=== PATIENT | male | born 1960 | race Caucasian/White ===

== ENCOUNTER 2020-04-17 18:41 | Emergency (ER) | payer OTHER, MEDICARE, SELFPAY ==
[2020-04-17 18:42] VITALS: BP 123/73; PULSE 71; RESP 16; TEMP 36.4; O2SAT 96; BMI 35.3
[2020-04-17 19:47] LABS: Absolute Lymphocyte Count 2.33 X10^3/uL (0.83-4.51); Absolute Neutrophil Count 3.3 X10^3/uL (2.0-7.7); Basophil# 0.04 X10^3/uL; Basophil% 0.6 % (0-1); Hemoglobin 13.4 g/dL (13.0-16.5); Lymphocyte # 2.33 X10^3/ul (4.0); Lymphocyte % 35.5 % (19-41); Mean Corp Hgb Conc 34.4 g/dL (32-36); Mean Corpuscular Hgb 30.9 pg (27.0-32.0); Mean Corpuscular Volume 89.9 fL (80-94); Monocyte# 0.67 X10^3/uL; Monocyte% 10.2 % (0-10); NRBC Flagged by Analyzer 0 % (0-5); Neutrophil # 3.28 X10^3/uL (2.7-7.7); Neutrophil % 50.1 % (47-70); Platelet Count 217 K/mm3 (150-450); RBC Distribution Width CV 12.6 % (11.6-14.6); RBC Distribution Width SD 40.5 fl (35.1-43.9); Red Blood Count 4.34 M/mm3 (4.6-6.2); White Blood Count 6.6 K/mm3 (4.4-11.0)
--- NOTE | 2020-04-17 19:49 | ED.DCSUM_ITS ---
- ER Visit Summary Date of Service: 04/17/20 Chief Complaint: [Bleeding from right knee wound] History of Present Illness: The patient is a 60 M [presents the emergency department with a wound on his right knee that he sustained after he fell 2 days ago. Patient states that he at times will have his right knee can buckle and give out and he will fall. Patient sustained some abrasions which they dressed at home. This evening his took the dressing off the right knee and it started to bleed and would not stop bleeding. Patient is on Coumadin. Patient denies wrecking his head. He denies any neck or head pain. He denies any other injuries. Patient has history of prior DVTs and diabetes. He is unsure when the last time he had an INR checked.] Physical Examination: [HELITA-PERRLA, VAUGHNMI. Cranial nerves II through XII grossly intact. TMs clear. Mucous membranes moist. No adenopathy. No external evidence of trauma to his head. No C-spine tenderness on palpation. Cardiovascular-regular rate and rhythm without murmur or ectopy Lungs-clear to auscultation, chest wall stable without crepitus or subcu emphysema Abdomen-normoactive bowel sounds, soft, nontender, no rebound or rigidity, no peritoneal signs. Extremities-intact ?4, normal range of motion, normal pulses. Right knee- patient has superficial skin avulsion over the anterior aspect of the right knee and currently there is no active bleeding. Bony tenderness on exam. Patient neurovascular intact distally. Patient also has a superficial abrasion to the left anterior tibia proximally.] Test Results: [CBC with differential obtained showed a white count of 6.6, hemoglobin 13, hematocrit 39, platelet 217.] Patient's INR was 1.0. Chemistries unremarkable. Glucose was 215. Emergency Department Course and Treatment: [Patient had a clean dressing applied. Patient was given 1 dose of Keflex.] Treatment Plan: [Treat patient with Keflex for concern of early cellulitis especially in light of the patient being diabetic. [facility] 3 to 5 days. Patient advised to return if increasing pain, redness, swelling, or condition should worsen anyway. Benita brandt's Cou[facility]in [facility] and he is advised to follow-up with them as he states that he has been taking the medication compliantly but his INR is only 1.0.] Disposition: [Discharged home in stable condition] Impression: Right knee skin avulsion with early cellulitis [] This note was generated with [employer] dictation software. It may contain incorrect words, spelling, and punctuation that were not noted in review of the chart prior to signing ED Disposition - Plan for ED Patient: [facility] [[facility] Provider] -
[2020-04-17 19:52] LABS: Prothrombin Time (Protime)PT. 12.4 SECONDS (11.7-14.9)
[2020-04-17 19:56] LABS: Anion Gap 7 (5-15); BUN 16 mg/dL (7-18); BUN/Creat Ratio 19.3 RATIO (10-20); Calcium,Total 8.6 mg/dL (8.5-10.1); Chloride 104 mmol/L (98-107); Creatinine, Serum 0.83 mg/dL (0.70-1.30); EST Glomerular Filtration Rate 102 mL/min (>60); Est Glom Filt Rate - Afr Amer 123 mL/min (>60); Estimated Creatinine Clearance 78.08 ml/min; Glucose 215 mg/dL (74-106); Potassium 4.1 mmol/L (3.5-5.1); Sodium Level 139 mmol/L (136-145)
--- NOTE | 2020-04-17 20:15 | ED.DEP ---
ED Disposition - Plan for ED Patient: Instructions: ED AVULSION LACERATION, ED Cellulitis Prescriptions: Cephalexin [Keflex] 500 mg PO Q6 #40 cap Prescription Printed [facility] [[facility] Provider] - 3-5 Days
[2020-04-17 20:27] VITALS: BP 149/79; PULSE 67; RESP 15
[2020-04-17] MEDS: Cephalexin 250 MG Capsule 500 MG PO (20:27)
== END 2020-04-17 20:41 | disposition home or self-care (01) ==
LOC: ED 20:38
PROVIDERS: Emergency Provider Emergency Medicine
DX: S81.001A Unspecified open wound, right knee, initial encounter (principal); L03.115 Cellulitis of right lower limb; X58.XXXA Exposure to other specified factors, initial encounter; Z79.01 Long term (current) use of anticoagulants
CPT/HCPCS: 36415; 80048; 85025; 85610; 99283; A4216

== ENCOUNTER 2020-05-14 05:10 | Emergency (ER) | payer OTHER, MEDICARE, SELFPAY ==
[2020-05-14 05:11] VITALS: BP 136/77; PULSE 84; RESP 18; TEMP 36.8; O2SAT 95; BMI 37.0
--- NOTE | 2020-05-14 05:31 | CT_ITS ---
STUDY: CT BRAIN WITHOUT CONTRAST REASON FOR EXAM: Male, 60 years old. SEIZURE, PT FELL OUT OF BED RADIATION DOSAGE (If Supplied By Facility): CTDIvol = ( 44.99 ) mGy, DLP = ( 812.98 ) mGycm TECHNIQUE: Transaxial CT imaging of the brain was performed without administration of intravenous contrast material. Individualized dose optimization techniques were used for this CT. COMPARISON: January 06, 2014 FINDINGS: There is extensive encephalomalacia in the RIGHT frontal lobe suggesting old injury. There is focal encephalomalacia in the RIGHT parietal lobe. There is NO acute infarct or hemorrhage. There is NO mass effect or midline shift. There is moderate central and cortical atrophy. The bony calvarium is intact. The paranasal sinuses are clear. CT/Brain/Head without Contrast IMPRESSION: There are chronic involutional and ischemic changes. There is NO acute abnormality. Electronically Signed: Neftali Owen MD at 6:39 EDT , Service support ,
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
[2020-05-14 06:25] LABS: Absolute Lymphocyte Count 1.48 X10^3/uL (0.83-4.51); Absolute Neutrophil Count 2.5 X10^3/uL (2.0-7.7); Basophil# 0.04 X10^3/uL; Basophil% 0.8 % (0-1); Eosinophil# 0.14 X10^3/uL; Hematocrit 40.4 % (40-54); Hemoglobin 13.4 g/dL (13.0-16.5); Lymphocyte # 1.48 X10^3/ul (4.0); Lymphocyte % 31.3 % (19-41); Mean Corp Hgb Conc 33.2 g/dL (32-36); Mean Corpuscular Hgb 30.2 pg (27.0-32.0); Mean Platelet Vol. 10.9 fl (6.2-12.0); Monocyte# 0.57 X10^3/uL; Monocyte% 12.1 % (0-10); NRBC Flagged by Analyzer 0 % (0-5); Neutrophil # 2.46 X10^3/uL (2.7-7.7); Platelet Count 200 K/mm3 (150-450); RBC Distribution Width CV 12.4 % (11.6-14.6); RBC Distribution Width SD 40.8 fl (35.1-43.9); Red Blood Count 4.44 M/mm3 (4.6-6.2); White Blood Count 4.7 K/mm3 (4.4-11.0)
[2020-05-14 06:37] VITALS: PULSE 82
[2020-05-14 06:39] LABS: Anion Gap 6 (5-15); BUN 11 mg/dL (7-18); BUN/Creat Ratio 11.7 RATIO (10-20); Calcium,Total 8.5 mg/dL (8.5-10.1); Chloride 103 mmol/L (98-107); Creatinine, Serum 0.94 mg/dL (0.70-1.30); EST Glomerular Filtration Rate 87 mL/min (>60); Est Glom Filt Rate - Afr Amer 106 mL/min (>60); Estimated Creatinine Clearance 68.94 ml/min; Glucose 245 mg/dL (74-106); Potassium 4.3 mmol/L (3.5-5.1); Sodium Level 139 mmol/L (136-145)
[2020-05-14 06:57] LABS: Bacteria 0 SEEN /hpf (None Seen); Mucous, Urine 0 SEEN /hpf (<or=2+); Red Blood Cells-Urine 0 SEEN /hpf (0-5); Squamous Epithelial Cells - UA 0 SEEN /hpf (0-5); White Blood Cells 0 SEEN /hpf (0-5)
[2020-05-14 07:01] LABS: Valproic Acid (Depakene) Level 24 ug/mL (50-100)
[2020-05-14 07:09] LABS: Color, Urine Yellow (Yellow); Glucose, Dipstick 1000 mg/dl (Normal); Ketone-Dipstick 5 mg/dl (Negative); Leukocyte Esterase-Dipstick Negative /ul (Negative); Nitrite-Dipstick Negative (Negative); Occult Blood-Urine Negative /ul (Negative); Protein-Dipstick 30 mg/dl (Negative); Specific Gravity, Urine 1.015 (1.002-1.030); Urine Bilirubin Dipstick Negative (Negative); Urine Clarity Clear (Clear); Urine Urobilinogen Normal (Normal)
[2020-05-14 07:36] VITALS: BP 127/76; PULSE 79; RESP 18; O2SAT 97
== END 2020-05-14 09:15 | disposition home or self-care (01) ==
PROVIDERS: Emergency Provider Emergency Medicine
DX: G40.909 Epilepsy, unspecified, not intractable, without status epilepticus (principal); I25.10 Atherosclerotic heart disease of native coronary artery without angina pectoris; E11.9 Type 2 diabetes mellitus without complications; E78.5 Hyperlipidemia, unspecified; Z87.820 Personal history of traumatic brain injury; Z79.84 Long term (current) use of oral hypoglycemic drugs; Z79.82 Long term (current) use of aspirin; Z86.718 Personal history of other venous thrombosis and embolism; Z79.02 Long term (current) use of antithrombotics/antiplatelets
CPT/HCPCS: 70450; 80048; 80164; 81001; 85025; 99285; J7030; J7050; A4216

== ENCOUNTER 2020-12-20 16:41 | Emergency (ER) | payer OTHER, MEDICARE, SELFPAY ==
[2020-12-20 16:41] VITALS: BP 128/73; PULSE 58; RESP 16; TEMP 36.1; O2SAT 99; BMI 34.5
--- NOTE | 2020-12-20 16:56 | CT_ITS ---
STUDY: CT ABDOMEN AND PELVIS WITH CONTRAST REASON FOR EXAM: Male, 60 years old. Fall. Right flank bruising. RADIATION DOSAGE (If Supplied By Facility): CTDIvol = ( 17.85 ) mGy, DLP = ( 1145.73 ) mGycm TECHNIQUE: Transaxial images were obtained from the dome of the diaphragm to the symphysis pubis without oral contrast. 100 ml of ISOVUE-300 contrast was administered. Sagittal and coronal images were reconstructed. Individualized dose optimization techniques were used for this CT. COMPARISON: None. FINDINGS: The visualized lung bases are clear. The visualized portions of the heart and pericardium are within normal limits. There are subcentimeter gallstones noted. The liver is within normal limits. There are no suspicious hepatic lesions. The spleen is normal in size. The pancreas is within normal limits. The adrenal glands are within normal limits. There are no renal or ureteral stones. There is no hydronephrosis. There are no focal renal lesions. Normal visualized stomach. There is no bowel obstruction or inflammation. There is a large amount of stool in the colon, consistent with constipation. The appendix is visualized and appears normal. The aorta is normal in caliber. There is an IVC filter in place. There is no abdominal or pelvic free air, free fluid, fluid collection or lymphadenopathy. The visualized osseous structures are intact. There is no acute fracture or dislocation. There are mild degenerative changes noted in the spine. There is a 7.0 x 6.5 x 3.6 cm hematoma in the posterior subcutaneous fat adjacent to the right paraspinal muscles. There is adjacent fat stranding noted. CT/Abdomen/Pelvis W IV Cont ONLY IMPRESSION: 7.0 x 6.5 x 3.6 cm hematoma in the posterior subcutaneous fat adjacent to the right paraspinal muscles. Adjacent fat stranding. No additional acute traumatic findings in the abdomen or pelvis. Nonacute findings, as above. Electronically Signed: Esau Ritchie MD at 18:25 EST Tel , Service support ,
--- NOTE | 2020-12-20 16:58 | ED.DCSUM_ITS ---
- ER Visit Summary Date of Service: 12/20/20 Chief Complaint: [Fall with back injury] History of Present Illness: The patient is a 60 M [the emergency department with complaint of a fall that occurred about 2 or 3 days ago. Patient states that he had urinated and on the way back from the toilet he lost his balance and fell hit his back against the wall of the tub. Patient initially did not think much of it but he is noticed a lot of bruising and discoloration to his skin and back. Patient is on anticoagulation for history of DVT and takes Arixtra. Patient denies any hematuria. Denies feeling lightheaded or dizzy. Patient was seen in urgent care and referred to the ER for evaluation. Patient does have history of coronary artery disease, DVT, seizure history, TIA history, and schizophrenia.] Physical Examination: [HEENT-PERRLA, EOMI. Cranial nerves II through XII ella sly intact. TMs clear. Mucous membranes moist. No adenopathy. Cardiovascular-regular rate and rhythm without murmur or ectopy Lungs-clear to auscultation, chest wall stable without crepitus or subcu emphysema Abdomen-normoactive bowel sounds, soft, nontender, no rebound or rigidity, no peritoneal signs. Back exam-patient has diffuse ecchymosis and bruising to the right flank with hematoma noted tracking along to the right lower quadrant of the abdomen and onto his right lateral hip and thigh. He does have some diffuse tenderness over the lumbar spine. No bony step-offs or depressions noted. Negative straight leg raises. Deep tendon reflexes are plus 2 out of 4 bilaterally at the patella and Achilles. Patient has normal 5 extension bilaterally. Extremities-intact ?4, normal range of motion, normal pulses, atraumatic] Test Results: [Orthostatic vital signs were normal. CBC with differential showing a 7.3, hemoglobin 11.9, hematocrit 35, platelets 321. Chemistries unremarkable. Urinalysis normal. CT of the abdomen pelvis with IV contrast showed a 7 x 6.5 x 3.6 cm hematoma over the subcutaneous regions of the right lumbar paraspinal musculature.] Emergency Department Course and Treatment: [ IV line established on arrival.] Treatment Plan: [Patient will be given a prescription for few Healy for pain.] Disposition: [Discharged home in stable condition] Impression: [Contusion to back Hematoma right flank] This note was generated with [employer] dictation software. It may contain incorrect words, spelling, and punctuation that were not noted in review of the chart prior to signing ED Disposition - Plan for ED Patient: [facility]] -
[2020-12-20] MEDS: 0.9% Normal Saline 1,000 ML 150 ML IV (17:00)
[2020-12-20 17:39] LABS: Absolute Lymphocyte Count 2.04 X10^3/uL (0.83-4.51); Absolute Neutrophil Count 4.4 X10^3/uL (2.0-7.7); Basophil# 0.05 X10^3/uL; Basophil% 0.7 % (0-1); Eosinophil# 0.15 X10^3/uL; Hematocrit 35.4 % (40-54); Hemoglobin 11.9 g/dL (13.0-16.5); Lymphocyte # 2.04 X10^3/ul (4.0); Lymphocyte % 27.8 % (19-41); Mean Corp Hgb Conc 33.6 g/dL (32-36); Mean Corpuscular Hgb 30.7 pg (27.0-32.0); Mean Corpuscular Volume 91.5 fL (80-94); Mean Platelet Vol. 10.3 fl (6.2-12.0); Monocyte# 0.61 X10^3/uL; Monocyte% 8.3 % (0-10); NRBC Flagged by Analyzer 0 % (0-5); Neutrophil # 4.39 X10^3/uL (2.7-7.7); Platelet Count 321 K/mm3 (150-450); RBC Distribution Width SD 43.8 fl (35.1-43.9); Red Blood Count 3.87 M/mm3 (4.6-6.2); White Blood Count 7.3 K/mm3 (4.4-11.0)
[2020-12-20 17:42] VITALS: BP 123/69; BP 136/93; BP 140/84; PULSE 56; PULSE 62; PULSE 75
[2020-12-20 17:44] LABS: Anion Gap 2 (5-15); BUN 9 mg/dL (7-18); BUN/Creat Ratio 11.6 RATIO (10-20); Calcium,Total 8.7 mg/dL (8.5-10.1); Chloride 107 mmol/L (98-107); Creatinine, Serum 0.77 mg/dL (0.70-1.30); EST Glomerular Filtration Rate 109 mL/min (>60); Est Glom Filt Rate - Afr Amer 132 mL/min (>60); Estimated Creatinine Clearance 84.16 ml/min; Glucose 96 mg/dL (74-106); Potassium 4.1 mmol/L (3.5-5.1); Sodium Level 141 mmol/L (136-145)
[2020-12-20 18:55] LABS: Bacteria 0 SEEN /hpf (None Seen); Mucous, Urine 0 SEEN /hpf (<or=2+); Red Blood Cells-Urine 0 SEEN /hpf (0-5); White Blood Cells 0 SEEN /hpf (0-5)
--- NOTE | 2020-12-20 19:01 | DCINST.ED_ITS ---
ED Disposition - Plan for ED Patient: Instructions: ED Mechanical Fall, ED Hematoma, ED Back Contusion Prescriptions: Hydrocodone Bitart/Apap 5-325 [[place] 5MG-325MG] 1 tab PO Q4H PRN PRN 2 Days #10 tab PRN Reason: Pain Prescription Printed [facility] - 5-7 Days
[2020-12-20 19:09] LABS: Color, Urine Yellow (Yellow); Glucose, Dipstick Normal (Normal); Ketone-Dipstick Negative (Negative); Leukocyte Esterase-Dipstick Negative /ul (Negative); Nitrite-Dipstick Negative (Negative); Occult Blood-Urine Negative /ul (Negative); Protein-Dipstick Negative (Negative); Specific Gravity, Urine 1.015 (1.002-1.030); Urine Bilirubin Dipstick Negative (Negative); Urine Clarity Sl. Cloudy (Clear); Urine Urobilinogen Normal (Normal)
[2020-12-20 19:23] LABS: Squamous Epithelial Cells - UA 0-5 SEEN /hpf (0-5)
[2020-12-20] MEDS: HYDROcodone Bitartrate/Apap 5/325 Tablet PO (19:51)
[2020-12-20 20:01] VITALS: BP 120/68; PULSE 55; RESP 18; O2SAT 97
== END 2020-12-20 20:02 | disposition home or self-care (01) ==
LOC: ED 17:11
PROVIDERS: Emergency Provider Emergency Medicine
DX: S20.229A Contusion of unspecified back wall of thorax, initial encounter (principal); S30.1XXA Contusion of abdominal wall, initial encounter; I25.10 Atherosclerotic heart disease of native coronary artery without angina pectoris; Z86.73 Personal history of transient ischemic attack (TIA), and cerebral infarction without residual deficits; Z79.02 Long term (current) use of antithrombotics/antiplatelets; Z86.718 Personal history of other venous thrombosis and embolism; W01.0XXA Fall on same level from slipping, tripping and stumbling without subsequent striking against object, initial encounter
CPT/HCPCS: 74177; 80048; 81001; 85025; 96360; 96361; 99284; J7030; Q9967; A4216

== ENCOUNTER 2021-01-25 16:28 | Emergency (ER) | payer OTHER, MEDICARE, SELFPAY ==
[2021-01-25 16:29] VITALS: BP 109/91; PULSE 80; RESP 18; TEMP 36.4; O2SAT 93; BMI 33.3
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
[2021-01-25 17:28] VITALS: RESP 17
[2021-01-25 18:35] VITALS: BP 113/71; PULSE 64; RESP 15; O2SAT 96
== END 2021-01-25 18:37 | disposition home or self-care (01) ==
LOC: ED 18:34
PROVIDERS: Emergency Provider Student in an Organized Health Care Education/Training Program
DX: R45.4 Irritability and anger (principal); Z86.73 Personal history of transient ischemic attack (TIA), and cerebral infarction without residual deficits; Z86.718 Personal history of other venous thrombosis and embolism
CPT/HCPCS: 99282

== ENCOUNTER 2021-05-21 11:47 | Emergency (ER) | payer MEDICARE, MEDICAID, SELFPAY ==
[2021-05-21 11:48] VITALS: BP 145/80; PULSE 63; RESP 18; TEMP 36.4; O2SAT 95; BMI 32.8
--- NOTE | 2021-05-21 11:59 | CT_ITS ---
STUDY: CT BRAIN WITHOUT CONTRAST REASON FOR EXAM: Male, 61 years old. Injury RADIATION DOSAGE (If Supplied By Facility): CTDIvol = ( 44.99 ) mGy, DLP = ( 812.98 ) mGycm TECHNIQUE: Transaxial CT imaging of the brain was performed without administration of intravenous contrast material. Individualized dose optimization techniques were used for this CT. COMPARISON: May 14, 2020 FINDINGS: Normal soft tissue structures. Normal calvarium. There is moderate cerebral atrophy with widening of the extra-axial spaces and ventricular dilatation. There are areas of decreased attenuation within the white matter tracts of the supratentorial brain, consistent with microvascular disease changes. There is right frontal, parietal, and occipital volume loss with encephalomalacia. Normal basal ganglia and thalami. Normal brainstem. Normal cerebellum. There is no intracranial hemorrhage. There are no findings of an acute ischemic infarction. Normal visualized paranasal sinuses. CT/Brain/Head without Contrast IMPRESSION: Chronic involutional changes of the brain. Electronically Signed: Delvin Mackey MD at 14:41 EDT , Service support ,
--- NOTE | 2021-05-21 11:59 | RAD_ITS ---
HISTORY: injury EXAMINATION/TECHNIQUE: XR Ribs Unilateral W/ PA Chest Min 3 Views: COMPARISON: Chest x-ray January 06, 2014 FINDINGS: LINES/DEVICES: None. LUNGS: No consolidation, edema or effusion. No pneumothorax. MEDIASTINUM AND CARDIOVASCULAR STRUCTURES: Cardiac silhouette not enlarged. Central airways and mediastinal contour are unremarkable. RIBS AND OSSEOUS STRUCTURES: Cortical irregularity suspicious for probable nondisplaced fractures right second, fourth and sixth ribs laterally. RAD/Ribs Uni Min 3V w/PA Chest IMPRESSION: Probable nondisplaced fractures of the right second, fourth and sixth ribs laterally versus old posttraumatic deformity. at 1544 Reported and signed by: Lazaro Gay MD Electronically Signed: Lazaro Gay MD at 15:43 EDT Tel , Service support ,
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
[2021-05-21 12:29] VITALS: BP 125/72; PULSE 61; RESP 17; O2SAT 95
[2021-05-21 12:32] LABS: Absolute Lymphocyte Count 1.37 X10^3/uL (0.83-4.51); Absolute Neutrophil Count 2.7 X10^3/uL (2.0-7.7); Basophil# 0.06 X10^3/uL; Basophil% 1.3 % (0-1); Eosinophil# 0.12 X10^3/uL; Eosinophils% 2.5 % (0-5); Hemoglobin 12.9 g/dL (13.0-16.5); Lymphocyte # 1.37 X10^3/ul (0.83-4.51); Mean Corp Hgb Conc 33.1 g/dL (32-36); Mean Corpuscular Hgb 30.4 pg (27.0-32.0); Mean Platelet Vol. 11.3 fl (6.2-12.0); Monocyte# 0.44 X10^3/uL; Monocyte% 9.3 % (0-10); NRBC Flagged by Analyzer 0 % (0-5); Neutrophil # 2.68 X10^3/uL (2.7-7.7); Neutrophil % 56.6 % (47-70); POSITIVE COUNT YES; Platelet Count 198 K/mm3 (150-450); RBC Distribution Width CV 12.7 % (11.6-14.6); RBC Distribution Width SD 41.5 fl (35.1-43.9); Red Blood Count 4.24 M/mm3 (4.6-6.2); White Blood Count 4.7 K/mm3 (4.4-11.0)
[2021-05-21 12:34] VITALS: O2SAT 94
[2021-05-21 12:52] LABS: ALB/GLOB Ratio 0.9 RATIO (0.9-2.4); AST(SGOT) 22 U/L (15-37); Alanine Aminotransfer ALT/SGPT 8 U/L (16-61); Albumin, Serum 2.9 g/dL (3.2-5.0); Alkaline Phosphatase 68 U/L (45-117); Anion Gap 3 (5-15); BUN 8 mg/dL (7-18); BUN/Creat Ratio 9.5 RATIO (10-20); Calcium,Total 8.2 mg/dL (8.5-10.1); Chloride 107 mmol/L (98-107); Creatinine, Serum 0.84 mg/dL (0.70-1.30); EST Glomerular Filtration Rate 99 mL/min (>60); Est Glom Filt Rate - Afr Amer 120 mL/min (>60); Estimated Creatinine Clearance 76.21 ml/min; Globulin 3.4 g/dL (2.2-4.2); Glucose 137 mg/dL (74-106); Potassium 4.6 mmol/L (3.5-5.1); Protein, Total 6.3 g/dL (6.4-8.2); Sodium Level 138 mmol/L (136-145)
[2021-05-21 14:03] VITALS: BP 133/76; PULSE 56; RESP 16; O2SAT 96
[2021-05-21 15:40] VITALS: BP 136/76; PULSE 59; RESP 20; O2SAT 98
== END 2021-05-21 15:41 | disposition home or self-care (01) ==
PROVIDERS: Emergency Provider Emergency Medicine
DX: S09.90XA Unspecified injury of head, initial encounter (principal); S20.219A Contusion of unspecified front wall of thorax, initial encounter; I25.10 Atherosclerotic heart disease of native coronary artery without angina pectoris; W19.XXXA Unspecified fall, initial encounter; Z87.820 Personal history of traumatic brain injury
CPT/HCPCS: 70450; 71101; 80053; 85025; 99284; A4216

== ENCOUNTER 2022-04-20 14:07 | Inpatient (IN) | payer OTHER, SELFPAY ==
[2022-04-20] VITALS (12 sets, daily range): BP systolic 98–119; BP diastolic 63–80; PULSE 57–102; RESP 16–22; TEMP 36.4–36.6; O2SAT 91–96; BMI 33.6; BMI 33.0
[2022-04-20 14:16] LABS: Bedside Glucose 143 mg/dL (74-106)
--- NOTE | 2022-04-20 14:17 | EKG12_ITS ---
Test Reason : STROKE TEAM Blood Pressure : / mmHG Vent. Rate : 071 BPM Atrial Rate : 071 BPM P-R Int : 170 ms QRS Dur : 088 ms QT Int : 398 ms P-R-T Axes : 045 010 022 degrees QTc Int : 432 ms Normal sinus rhythm Normal ECG Confirmed by RAJESH HACKETT, VALENTINA ([id number]), deputy editor in chief DARRYL MERCADO ([id number]) on 04/23/2022 10:02:18 A M Referred By: JACQUIE/ANTHONY Confirmed By:LUKE MENA MD
--- NOTE | 2022-04-20 14:17 | RAD_ITS ---
STUDY: X-RAY CHEST REASON FOR EXAM: Male, 62 years old. Neuro deficit, acute, stroke suspected TECHNIQUE: Single AP portable view of the chest. COMPARISON: Comparison is made with prior study dated 05/21/2021. FINDINGS: EKG electrodes are seen. Limited inspiratory effort. Prominence of the bilateral hilar regions worse on the right side. Possible right infrahilar infiltrate. There is no demonstrated pleural abnormality. Normal size heart. Normal visualized pulmonary arteries. Normal visualized aortic arch and descending thoracic aorta. Normal visualized thoracic spine. Normal visualized ribs, clavicles, and shoulders. Inferior vena cava filter. RAD/Chest 1 View IMPRESSION: Questionable right perihilar infiltrate. Electronically Signed: Bertin Umanzor MD at 15:12 EDT ,
--- NOTE | 2022-04-20 14:17 | CT_ITS ---
STUDY: CT HEAD STROKE PROTOCOL W/O CONTRAST INJECTION REASON FOR EXAM: Male, 62 years old. Neuro deficit, acute, stroke suspected RADIATION DOSAGE (If Supplied By Facility): CTDIvol = ( 44.99 ) mGy, DLP = ( 829.85 ) mGycm TECHNIQUE: Transaxial CT imaging of the brain was performed without administration of intravenous contrast material. Individualized dose optimization techniques were used for this CT. COMPARISON: Comparison is made with prior study dated 05/21/2021. FINDINGS: Stable focal density in the soft tissues overlying the left occipital bone. Normal calvarium. There is moderate cerebral atrophy with widening of the extra-axial spaces and ventricular dilatation. There are areas of decreased attenuation within the white matter tracts of the supratentorial brain, consistent with microvascular disease changes. Stable encephalomalacia in the right frontal lobe. Normal basal ganglia and thalami. Normal brainstem. Normal cerebellum. There is no intracranial hemorrhage. There are no findings of an acute ischemic infarction. Atherosclerotic calcification of the vertebral arteries and cavernous portions of the internal carotid arteries bilaterally. Normal visualized paranasal sinuses. CT/STROKE Brain/Head without Cont IMPRESSION: Chronic involutional changes of the brain. Stable encephalomalacia in the right frontal lobe. N.B. : The above Results were Read Back by Bertin Umanzor MD to Delvin Parekh and understanding confirmed on 04/20/2022 14:39:54 (ET). Electronically Signed: Bertin Umanzor MD at 14:41 EDT ,
--- NOTE | 2022-04-20 14:18 | CT_ITS ---
STUDY: CTA HEAD AND NECK WITH CONTRAST REASON FOR EXAM: Male, 62 years old. Neuro deficit, acute, stroke suspected RADIATION DOSAGE (If Supplied By Facility): CTDIvol = ( 20.51 ) mGy, DLP = ( 857.99 ) mGycm TECHNIQUE: CT angiography was performed with a multi-detector CT scanner. Data acquisition was obtained from the skull base through the vertex following intravenous administration of IV 100mL Isovue-370. MIP images were reconstructed from the axial data set. Post-processing of the angiographic images was performed, with multiplanar reformation and 3D reconstruction. Individualized dose optimization techniques were used for this CT. COMPARISON: Comparison is made with prior study dated 01/06/2004. FINDINGS: Normal bilateral petrous carotid arteries. Normal right cavernous carotid artery with a normal supraclinoid bifurcation. Normal left cavernous carotid artery with a normal supraclinoid bifurcation. Normal right A1 segments of the anterior cerebral artery. Normal left A1 segments of the anterior cerebral artery. Normal intact anterior communicating artery (ACOM). Normal bilateral A2 segments of the anterior cerebral arteries. Normal right M1 and M2 segments of the middle cerebral arteries, with a normal M1 bifurcation. Normal left M1 and M2 segments of the middle cerebral arteries, with a normal M1 bifurcation. Normal right posterior communicating artery (PCOM). Normal left posterior communicating artery (PCOM). Normal bilateral vertebral arteries. Normal basilar artery with a normal basilar bifurcation. The visualized bilateral superior cerebellar (SCA) arteries are normal. Normal bilateral P1, P2 and visualized P3 segments of the posterior cerebral arteries. There is no demonstrated aneurysm of the [place]. AORTIC ARCH: There is atherosclerotic calcific plaque formation of the aortic arch and great vessels arising from the aortic arch, without a hemodynamically significant stenosis. There is a normal origin of the brachiocephalic, left common carotid, and left subclavian arteries. RIGHT CAROTID ARTERIES: Normal right common carotid artery (CCA). Normal right common carotid bulb. Normal origin of the right internal carotid (ICA) artery without a hemodynamically significant stenosis. Normal visualized cervical portion of the right internal carotid artery. Normal origin of the right external carotid artery (ECA). LEFT CAROTID ARTERIES: Normal left common carotid artery (CCA). Normal left common carotid bulb. Normal origin of the left internal carotid (ICA) artery without a hemodynamically significant stenosis. Normal visualized cervical portion of the left internal carotid artery. Normal origin of the left external carotid artery (ECA). VERTEBRAL ARTERIES: There is enhancement within the bilateral vertebral arteries with a small left vertebral artery, and a dominant right vertebral artery. CT/STROKE CTA Head AND Neck W/Con IMPRESSION: Normal CTA Head and neck with contrast. N.B. : The above Results were Read Back by Bertin Umanzor MD to Delvin Parekh and understanding confirmed on 04/20/2022 14:47:13 (ET). Electronically Signed: Bertin Umanzor MD at 14:49 EDT ,
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
[2022-04-20 14:25] LABS: Absolute Lymphocyte Count 1.63 X10^3/uL (0.83-4.51); Absolute Neutrophil Count 5.2 X10^3/uL (2.0-7.7); Basophil# 0.02 X10^3/uL; Basophil% 0.3 % (0-1); Eosinophil# 0.11 X10^3/uL; Eosinophils% 1.4 % (0-5); Hematocrit 37.4 % (40-54); Hemoglobin 13.2 g/dL (13.0-16.5); Lymphocyte # 1.63 X10^3/ul (0.83-4.51); Mean Corp Hgb Conc 35.3 g/dL (32-36); Mean Corpuscular Hgb 31.1 pg (27.0-32.0); Mean Platelet Vol. 11.1 fl (6.2-12.0); Monocyte# 0.79 X10^3/uL; Monocyte% 10.2 % (0-10); NRBC Flagged by Analyzer 0 % (0-5); Neutrophil # 5.18 X10^3/uL (2.7-7.7); Neutrophil % 66.5 % (47-70); Platelet Count 225 K/mm3 (150-450); RBC Distribution Width CV 11.8 % (11.6-14.6); RBC Distribution Width SD 37.8 fl (35.1-43.9); Red Blood Count 4.25 M/mm3 (4.6-6.2); White Blood Count 7.8 K/mm3 (4.4-11.0)
[2022-04-20 14:36] LABS: International Normalized Ratio 1.1; Partial Thromboplast Time 25.8 Seconds (24.1-36.2); Prothrombin Time (Protime)PT. 13.6 SECONDS (11.7-14.9)
--- NOTE | 2022-04-20 14:42 | CM.ED ---
Social Work Note Stroke Alert called. SW met with pt's family and provided emotional support. Leigha Browning ASSISTANT RESEARCH SCIENTIST, COMMUNITY HEALTH NURSE SUPERVISOR
[2022-04-20 14:51] LABS: Anion Gap 7 (5-15); BUN 8 mg/dL (7-18); BUN/Creat Ratio 8.9 RATIO (10-20); Calcium,Total 8.4 mg/dL (8.5-10.1); Chloride 101 mmol/L (98-107); EST Glomerular Filtration Rate 92 mL/min (>60); Est Glom Filt Rate - Afr Amer 111 mL/min (>60); Estimated Creatinine Clearance 75.93 ml/min; Glucose 167 mg/dL (74-106); Potassium 4.2 mmol/L (3.5-5.1); Sodium Level 134 mmol/L (136-145); Troponin-I HS < 3 pg/mL (3.0-78.0)
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
[2022-04-20 17:15] LABS: Magnesium 1.7 mg/dL (1.6-2.6)
--- NOTE | 2022-04-20 17:41 | ECHOCS_ITS ---
Reason For Study: CVA Procedure This was a 2D Doppler, Color Flow transthoracic echocardiogram. The study was technically difficult. Contrast injection was performed. Exam performed portable in patient room. Left Ventricle The estimated ejection fraction is 65 %. No evidence for diastolic dysfunction. No regional wall motion abnormalities noted. Right Ventricle Normal RV size. Normal systolic function. Atria Normal left atrium. Normal right atrium. No doppler evidence for ASD. Mitral Valve There is no mitral valve stenosis. No mitral valve insufficiency. Tricuspid Valve There is no tricuspid stenosis. Unable to estimate RV systolic pressure due to inadequate jet, pulmonary artery pressure probably normal. Aortic Valve Aortic sclerosis, no stenosis. There is no aortic stenosis. No aortic valve insufficiency. Pulmonic Valve There is no pulmonic valvular stenosis. No pulmonic valve insufficiency. Great Vessels Normal aortic root. Pericardium/Pleural No pericardial effusion. Medication Diluted definity 2ml given slow IV push to enhance endocardial definition. MMode/2D Measurements & Calculations LVIDd: 4.0 cm IVSd: 1.5 cm LA dimension: 3.1 cm LVIDs: 2.7 cm LVPWd: 1.2 cm FS: 31.6 % LAV(MOD-sp4): 23.4 ml LA A4 area: 11.1 cm2 Time Measurements MV dec time: 0.21 sec Doppler Measurements & Calculations MV E max mega: 67.1 cm/sec Lat Peak E' Mega: 10.9 cm/sec Med Peak E' Mega: 7.0 cm/sec MV A max mega: 85.5 cm/sec E/E' lat: 6.2 E/E' med: 9.6 MV E/A: 0.78 MV V2 max: 95.8 cm/sec MV P1/2t max mega: 96.4 cm/sec Ao V2 max: 116.2 cm/sec MV max P.7 mmHg MV P1/2t: 53.9 msec Ao max P.4 mmHg MV V2 mean: 58.3 cm/sec MV dec slope: 523.9 cm/sec2 MV mean P.6 mmHg MV V2 VTI: 22.7 cm MVA(P1/2t): 4.1 cm2 LV V1 max: 91.4 cm/sec PA V2 max: 120.4 cm/sec LV V1 max P.3 mmHg ECHO/Echo Complete W/ Contrast Interpretation Summary The estimated ejection fraction is 65 %. No evidence for diastolic dysfunction. Aortic sclerosis, no stenosis. Ordering Physician: Samreen Martines Performed By: Juan Singer RCS
[2022-04-20] MEDS: 0.9% Normal Saline 1,000 ML 100 ML IV (18:16)
--- NOTE | 2022-04-20 20:30 | MRI_ITS ---
STUDY: MRI BRAIN WITHOUT CONTRAST REASON FOR EXAM: Male, 62 years old. CVA TECHNIQUE: Standardized multiplanar fat and water weighted pulse sequences were obtained. COMPARISON: CT and CTA brain 04/20/2022 and MRI brain 04/03/2016. FINDINGS: There is moderate cerebral atrophy with widening of the extra-axial spaces and ventricular dilatation. There are multiple white matter hyperintensities, distributed throughout the deep white matter tracts of the cerebral hemispheres, consistent with moderate chronic white matter ischemic changes. Right frontal and right occipital encephalomalacia unchanged. There is no evidence for recent intracranial ischemia or other cause of cytotoxic edema on diffusion weighted imaging (DWI). Normal bilateral basal ganglia. Normal thalami. There is no extra-axial fluid accumulation. Normal flow voids within the major intracranial circulation suggesting patency by spin echo criteria. Normal sella turcica, pituitary gland, infundibular stalk, optic chiasm and hypothalamus. Normal tectal plate and pineal gland. Normal midbrain, shante and medulla. Normal cerebellum. Normal basal cisterns. Normal bilateral temporal bones. Normal bilateral internal auditory canals. No demonstrated orbital abnormality, within the constraints of a routine brain study. Normal visualized paranasal sinuses. Normal calvarium and skull base. Normal visualized soft tissue structures. Normal visualized upper cervical spine. MRI/Brain without Contrast IMPRESSION: Involutional changes of the brain, as described above. Right frontal and right occipital encephalomalacia unchanged. No acute disease. Electronically Signed: Avinash Pack MD at 21:59 EDT ,
[2022-04-20 22:17] LABS: Valproic Acid (Depakene) Level 27 ug/mL (50-100)
[2022-04-20] MEDS: Atorvastatin Calcium 80 MG Tablet PO (23:04)
[2022-04-20] MEDS: levETIRAcetam 500 MG Tablet PO (23:05)
[2022-04-20] MEDS: Insulin Lispro 100 UNIT/ML INSULN.PEN SC (23:20)
[2022-04-20 23:30] LABS: Bedside Glucose 207 mg/dL (74-106)
[2022-04-21] VITALS (10 sets, daily range): BP systolic 100–127; BP diastolic 63–86; PULSE 62–93; RESP 16–18; TEMP 36.5–36.7; O2SAT 94–96
--- NOTE | 2022-04-21 00:42 | CPS ---
RT at beside to instruct patient on the use of an IS device and inquire about wearing a CPAP QHS. The patient states that he is supposed to wear a mask at night at home, but he hasn't been doing so. When asked why this is the case the patient states that he saw on television where those masks were killing people from not being properly cleaned. RT offered the patient a hospital CPAP to use while he was here and he declined.
[2022-04-21 06:37] LABS: Absolute Lymphocyte Count 1.47 X10^3/uL (0.83-4.51); Absolute Neutrophil Count 3.5 X10^3/uL (2.0-7.7); Basophil# 0.02 X10^3/uL; Basophil% 0.3 % (0-1); Eosinophil# 0.09 X10^3/uL; Eosinophils% 1.5 % (0-5); Hematocrit 38.3 % (40-54); Lymphocyte # 1.47 X10^3/ul (0.83-4.51); Lymphocyte % 25.3 % (19-41); Mean Corp Hgb Conc 33.9 g/dL (32-36); Mean Corpuscular Hgb 30.5 pg (27.0-32.0); Mean Corpuscular Volume 89.9 fL (80-94); Mean Platelet Vol. 11.6 fl (6.2-12.0); Monocyte# 0.67 X10^3/uL; Monocyte% 11.5 % (0-10); NRBC Flagged by Analyzer 0 % (0-5); Neutrophil # 3.53 X10^3/uL (2.7-7.7); Neutrophil % 60.9 % (47-70); Platelet Count 193 K/mm3 (150-450); RBC Distribution Width CV 12.2 % (11.6-14.6); RBC Distribution Width SD 39.6 fl (35.1-43.9); Red Blood Count 4.26 M/mm3 (4.6-6.2); White Blood Count 5.8 K/mm3 (4.4-11.0)
[2022-04-21] MEDS: Insulin Lispro 100 UNIT/ML INSULN.PEN SC ×4 (06:47→21:54)
[2022-04-21 07:01] LABS: Bedside Glucose 183 mg/dL (74-106)
[2022-04-21 07:09] LABS: ALB/GLOB Ratio 0.8 RATIO (0.9-2.4); AST(SGOT) 11 U/L (15-37); Alanine Aminotransfer ALT/SGPT 17 U/L (16-61); Albumin, Serum 2.8 g/dL (3.2-5.0); Alkaline Phosphatase 59 U/L (45-117); Anion Gap 7 (5-15); BUN 7 mg/dL (7-18); BUN/Creat Ratio 9.9 RATIO (10-20); Calcium,Total 8.1 mg/dL (8.5-10.1); Chloride 108 mmol/L (98-107); Cholesterol 112 mg/dL (200); Creatinine, Serum 0.71 mg/dL (0.70-1.30); EST Glomerular Filtration Rate 120 mL/min (>60); Est Glom Filt Rate - Afr Amer 146 mL/min (>60); Estimated Creatinine Clearance 89.05 ml/min; Globulin 3.3 g/dL (2.2-4.2); Glucose 206 mg/dL (74-106); High Density Lipoprotein 33 mg/dL; Protein, Total 6.1 g/dL (6.4-8.2); Sodium Level 142 mmol/L (136-145); Thyroid Stim Hormone (TSH) 0.86 uIU/mL (0.358-3.74); Triglycerides 108 mg/dL; Very Low Density Lipoprotein 22 mg/dL (5-40)
[2022-04-21 07:58] LABS: Hemoglobin A1c 7.4 % (3.8-5.6)
[2022-04-21] MEDS: Divalproex (ER) 500 MG Tablet 1000 MG PO (08:44)
[2022-04-21] MEDS: Aspirin 81 MG TAB.CHEW PO (08:44)
[2022-04-21] MEDS: Pantoprazole Sodium 20 MG Tablet PO (08:44)
[2022-04-21] MEDS: Calcium Carbonate 500 MG Tablet PO (08:45)
[2022-04-21] MEDS: levETIRAcetam 500 MG Tablet PO ×2 (08:45→21:54)
[2022-04-21 12:20] LABS: Bedside Glucose 234 mg/dL (74-106)
--- NOTE | 2022-04-21 13:03 | CASEMGMT ---
Social Work PHQ-9 not completed as stroke was ruled out. ANICETO Amezcua
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
--- NOTE | 2022-04-21 15:30 | TELEMED_ITS ---
[facility] Telemed has confirmed receipt of a request for visit. This document confirms receipt of the order initiating the consult. To find the results of the consultation, please view the patient's reports for the scanned Telemed Consult.
[2022-04-21 17:31] LABS: Bedside Glucose 228 mg/dL (74-106)
[2022-04-21] MEDS: Atorvastatin Calcium 80 MG Tablet PO (21:54)
[2022-04-21 22:11] LABS: Bedside Glucose 226 mg/dL (74-106)
[2022-04-22 03:00] VITALS: PULSE 69
[2022-04-22 03:20] VITALS: BP 116/85; PULSE 72; RESP 18; TEMP 36.2; O2SAT 93
[2022-04-22] MEDS: Insulin Lispro 100 UNIT/ML INSULN.PEN SC (06:41)
[2022-04-22 06:45] LABS: Bedside Glucose 161 mg/dL (74-106)
[2022-04-22 07:07] VITALS: O2SAT 96
[2022-04-22 07:10] VITALS: PULSE 67
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
[2022-04-22 07:43] LABS: Absolute Lymphocyte Count 2.04 X10^3/uL (0.83-4.51); Absolute Neutrophil Count 3.3 X10^3/uL (2.0-7.7); Basophil# 0.03 X10^3/uL; Basophil% 0.5 % (0-1); Eosinophil# 0.11 X10^3/uL; Eosinophils% 1.8 % (0-5); Hematocrit 36.9 % (40-54); Hemoglobin 12.6 g/dL (13.0-16.5); Lymphocyte # 2.04 X10^3/ul (0.83-4.51); Lymphocyte % 32.6 % (19-41); Mean Corp Hgb Conc 34.1 g/dL (32-36); Mean Corpuscular Hgb 30.6 pg (27.0-32.0); Mean Corpuscular Volume 89.6 fL (80-94); Mean Platelet Vol. 11.2 fl (6.2-12.0); Monocyte# 0.69 X10^3/uL; NRBC Flagged by Analyzer 0 % (0-5); Neutrophil # 3.34 X10^3/uL (2.7-7.7); Neutrophil % 53.5 % (47-70); Platelet Count 204 K/mm3 (150-450); RBC Distribution Width CV 12.1 % (11.6-14.6); RBC Distribution Width SD 38.8 fl (35.1-43.9); Red Blood Count 4.12 M/mm3 (4.6-6.2); White Blood Count 6.3 K/mm3 (4.4-11.0)
[2022-04-22 08:04] LABS: Anion Gap 4 (5-15); BUN 9 mg/dL (7-18); Calcium,Total 8.6 mg/dL (8.5-10.1); Chloride 107 mmol/L (98-107); Creatinine, Serum 0.75 mg/dL (0.70-1.30); EST Glomerular Filtration Rate 113 mL/min (>60); Est Glom Filt Rate - Afr Amer 136 mL/min (>60); Glucose 154 mg/dL (74-106); Potassium 3.9 mmol/L (3.5-5.1); Sodium Level 140 mmol/L (136-145)
[2022-04-22 08:18] VITALS: BP 106/71; PULSE 78; RESP 12; TEMP 36.8; O2SAT 97
[2022-04-22] MEDS: Pantoprazole Sodium 20 MG Tablet PO (08:22)
[2022-04-22] MEDS: Calcium Carbonate 500 MG Tablet PO (08:22)
[2022-04-22] MEDS: levETIRAcetam 500 MG Tablet PO (08:22)
[2022-04-22] MEDS: Aspirin 81 MG TAB.CHEW PO (08:23)
[2022-04-22] MEDS: Divalproex (ER) 500 MG Tablet 1000 MG PO (08:23)
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
[2022-04-22 14:00] VITALS: BMI 33.0
[2022-04-25 17:06] LABS: KEPPRA (LEVETIRACETAM) <1.0 ug/mL (10.0-40.0)
== END 2022-04-22 14:02 | disposition home or self-care (01) | DRG 57 ==
LOC: ED 16:21 → PCU 17:40
PROVIDERS: Admitting Provider Family Medicine; Emergency Provider Emergency Medicine; Visit Provider Student in an Organized Health Care Education/Training Program
DX: G81.91 Hemiplegia, unspecified affecting right dominant side (principal); R47.01 Aphasia; G93.89 Other specified disorders of brain; E11.9 Type 2 diabetes mellitus without complications; I70.0 Atherosclerosis of aorta; G40.909 Epilepsy, unspecified, not intractable, without status epilepticus; E78.5 Hyperlipidemia, unspecified; I10 Essential (primary) hypertension; I25.10 Atherosclerotic heart disease of native coronary artery without angina pectoris; G51.0 Bell's palsy; G47.33 Obstructive sleep apnea (adult) (pediatric); Z79.82 Long term (current) use of aspirin; E66.9 Obesity, unspecified; Z95.5 Presence of coronary angioplasty implant and graft; Z87.820 Personal history of traumatic brain injury; Z86.718 Personal history of other venous thrombosis and embolism; Z86.73 Personal history of transient ischemic attack (TIA), and cerebral infarction without residual deficits
CPT/HCPCS: 36415; 70450; 70496; 70498; 70551; 71045; 80048; 80053; 80061; 80164; 80177; 82962; 83036; 83735; 84443; 84484; 85025; 85610; 85730; 92523; 92610; 93005; 93306; 94762; 95819; 97162; 97165; 97802; 99251; 99285; J7030; Q9957; Q9967; A4216; C8929; G0463

== ENCOUNTER 2023-04-18 12:24 | Emergency (ER) | payer OTHER, SELFPAY ==
[2023-04-18 12:25] VITALS: BP 124/71; PULSE 84; RESP 18; TEMP 36.6; O2SAT 94; BMI 32.2
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
--- NOTE | 2023-04-18 12:55 | CT_ITS ---
STUDY: CT CERVICAL SPINE WITHOUT CONTRAST REASON FOR EXAM: Male, 63 years old. Fall/injury RADIATION DOSAGE (If Supplied By Facility): CTDIvol = ( 24.71 ) mGy, DLP = ( 498.30 ) mGycm TECHNIQUE: High resolution transaxial imaging was performed without contrast material. Sagittal and coronal images were reconstructed. Individualized dose optimization techniques were used for this CT. COMPARISON: Comparison is made with prior study dated June 13, 2012. FINDINGS: Normal craniovertebral junction. Normal anterior atlantoaxial articulation. Normal odontoid process. Normal cervical lordosis. Normal vertebral bodies and posterior osseous elements. C2-3: Normal endplates. Normal disc height and morphology. Normal central canal and intervertebral neuroforamina. C3-4: Normal endplates. Normal disc height and morphology. Normal central canal and intervertebral neuroforamina. C4-5: Normal endplates. Normal disc height and morphology. Normal central canal and intervertebral neuroforamina. C5-6: Normal endplates. Normal disc height and morphology. Normal central canal and intervertebral neuroforamina. C6-7: Normal endplates. Normal disc height and morphology. Normal central canal and intervertebral neuroforamina. C7-T1: Normal endplates. Normal disc height and morphology. Normal central canal and intervertebral neuroforamina. Normal visualized soft tissue structures. CT/Spine Cervical without Contras IMPRESSION: Normal unenhanced CT examination of the cervical spine. Electronically Signed: Bertin Umanzor MD at 14:40 EDT ,
[2023-04-18] MEDS: Lidocaine 1% /Epi 1:100 (20ml) 20 ML Vial INFILT (13:20)
[2023-04-18 13:26] LABS: Absolute Lymphocyte Count 0.69 X10^3/uL (0.83-4.51); Basophil# 0.04 X10^3/uL; Basophil% 0.4 % (0-1); Eosinophil# 0.06 X10^3/uL; Eosinophils% 0.6 % (0-5); Hematocrit 42.5 % (40-54); Hemoglobin 14.1 g/dL (13.0-16.5); Lymphocyte # 0.69 X10^3/ul (0.83-4.51); Lymphocyte % 7.2 % (19-41); Mean Corp Hgb Conc 33.2 g/dL (32-36); Mean Corpuscular Hgb 30.5 pg (27.0-32.0); Mean Platelet Vol. 10.9 fl (6.2-12.0); Monocyte# 0.69 X10^3/uL; Monocyte% 7.2 % (0-10); NRBC Flagged by Analyzer 0 % (0-5); Neutrophil % 84.1 % (47-70); Platelet Count 188 K/mm3 (150-450); RBC Distribution Width CV 12.2 % (11.6-14.6); RBC Distribution Width SD 41.3 fl (35.1-43.9); Red Blood Count 4.62 M/mm3 (4.6-6.2); White Blood Count 9.5 K/mm3 (4.4-11.0)
--- NOTE | 2023-04-18 13:31 | RAD_ITS ---
STUDY: X-RAY CHEST REASON FOR EXAM: Male, 63 years old. Back pain. History of fall. TECHNIQUE: AP and lateral views of the chest. COMPARISON: Comparison is made with prior study dated April 20, 2022. FINDINGS: Increased markings at the right lung base suggestive of a basilar atelectasis. There is no demonstrated pleural abnormality. Normal size heart. Normal mediastinum and terry. Normal visualized pulmonary arteries. Normal visualized aortic arch and descending thoracic aorta. There are diffuse degenerative changes of the visualized thoracic spine. Normal visualized ribs, clavicles, and shoulders. There is no demonstrated abnormality of the visualized soft tissue structures of the upper abdomen. RAD/Chest PA and Lateral IMPRESSION: Increased markings at the right lung base suggestive of atelectasis. Electronically Signed: Bertin Umanzor MD at 14:41 EDT ,
--- NOTE | 2023-04-18 13:31 | ED.VIS.FALL ---
HPI HPI - Fall History of Present Illness Chief Complaint: Fall Informant: patient, family (spouse, son) and EMS Occured/Mechanism Occurred: Today Narrative: Fell down an entire flight of steps, son suspects 20 or more Usually ambulates: Walker Pain/Injury Pain Location: head, neck and back Narrative Narrative: Patient states he was feeling well, he went to walk down the steps in his two-story home, lost his balance and fell down the entire flight. Sustained an injury to his head with a laceration, he also complains of some pain in his neck and right low back. No loss consciousness he remembers everything. He states he commonly loses his balance, and is supposed to walk with a walker but did not have it at the time. His family corroborates this. Patient denied having any vertigo or focal neurologic symptoms or other prodromal symptoms prior to the fall. He is on Arixtra because of a history of DVTs. Additionally, he and the son state that for the past 2 or 3 days he has had nonproductive cough, congestion, sore throat, runny nose, no fevers or chills that he knows of, and no dyspnea. [facility] Medical History (Updated 04/18/23 @ 17:[address] Delvin Parekh MD) CAD (coronary artery disease) DM2 (diabetes mellitus, type 2) DVT (deep venous thrombosis) Dyslipidemia Obesity KATHRINE (obstructive sleep apnea) Schizophrenia Seizure Slurred speech TIA (transient ischemic attack) Traumatic brain injury Home Medications atorvastatin 10 mg tablet 10 mg PO QHS 01/06/14 [History Last Taken 01/05/14] calcium carbonate 600 mg calcium (1,500 mg) tablet (Caltrate 600) 600 mg PO DAILY@0800 01/06/14 [History Last Taken 01/05/14] fondaparinux 10 mg/0.8 mL subcutaneous solution syringe (Arixtra) 7.5 mg SQ DAILY Blood Thinner 01/06/14 [History Last Taken Unknown] glyburide 5 mg tablet (Diabeta) 5 mg PO BID 01/06/14 [History Last Taken 01/05/14] metformin 1,000 mg tablet 1,000 mg PO BIDCM 01/06/14 [History Last Taken 01/05/14] omeprazole 20 mg capsule,delayed release 20 mg PO DAILY 01/06/14 [History Last Taken 01/05/14] aspirin 81 mg chewable tablet 81 mg PO DAILY@0800 ##90 01/07/14 [Rx Last Taken Unknown] levetiracetam 500 mg tablet 500 mg PO BID ##30 03/15/16 [Rx Last Taken Unknown] divalproex 500 mg tablet,extended release 24 hr 1,000 mg PO UD #90 tabs 04/22/22 [Rx Last Taken 01/05/14] levofloxacin 750 mg tablet 750 mg PO DAILY #5 tabs 04/18/23 [Rx Last Taken Unknown] Allergy/AdvReac Type Severity Reaction Status Date / Time heparin Allergy Swelling Verified 04/18/23 12:24 ibuprofen Allergy Unknown Verified 04/18/23 12:24 Family History (Updated 04/20/22 @ 17:[address] Samreen Martines MD) Mother Cancer Diabetes Father Cancer Diabetes Surgical History (Updated 04/20/22 @ 15:[address] Samreen Martines MD) H/O brain surgery History of percutaneous coronary intervention Social History (Updated 04/20/22 @ 15:[address] Samreen Martines MD) household members: spouse Smoking Status: Never smoker alcohol intake: never substance use type: does not use ROS ROS ED Constitutional Constitutional ED: Denies chills or fever(s) Eyes Eyes: Denies change in vision or diplopia ENT ENT ED: Reports nasal congestion, rhinorrhea and sore throat; Denies ear pain, epistaxis or facial pain Cardiovascular Cardiovascular: Denies chest pain or palpitations Respiratory/Chest Respiratory/Chest: Reports cough; Denies dyspnea Gastrointestinal Gastrointestinal: Reports abdominal pain; Denies diarrhea, melena, nausea or vomiting Genitourinary Genitourinary ED: Denies dysuria or hematuria Musculoskeletal Musculoskeletal: Reports back pain and neck pain; Denies extremity pain Integumentary Reports laceration; Denies abscess, Abrasions or rash Neurologic Neurologic: Reports headache(s) and lack of coordination; Denies confusion, paresthesias or weakness EXAM Physical Exam Const Vital Signs: 04/18/23 12:25 04/18/23 12:35 04/18/23 14:47 Temperature 98 F Temperature Source Temporal Pulse Rate 84 Respiratory Rate 18 Respiratory Effort Normal Non-Labored Blood Pressure 124/71 H 104/92 H Blood Pressure Mean 88 96 Pulse Ox 94 Oxygen Delivery Method Room Air Room Air 05/18/23 15:40 Temperature 101.9 F H Temperature Source Temporal Pulse Rate Respiratory Rate Respiratory Effort Blood Pressure Blood Pressure Mean Pulse Ox Oxygen Delivery Method Positive well nourished and well developed General Appearance ED: well developed and NAD HEENT Reports TM's clear and nasal mucous membranes and turbinates normal HEENT Narrative: Curvilinear 6 cm left high parietal scalp laceration without crepitance or depression. The galea does not seem to be penetrated. There is no emergent bleeding from this area, just venous oozing. trauma Face and Sinus: Negative for facial tenderness Tympanic Membrane ED: Yes TM's clear Eyes PERRL and EOMs intact bilaterally Visual Acuity: other Other Details: no entrapment or pain with extraocular movements Neck Neck Narrative: C-collar from EMS maintained. Mild diffuse cervical spine tenderness without any objective signs of trauma or step-offs. General: tenderness Chest Wall inspection of chest normal and palpation of chest normal Chest: symmetrical chest wall rise; Negative for crepitus or tenderness Resp normal respiratory effort and clear to auscultation bilaterally Percussion: other equal BS bilat Cardio no murmurs Rate: regular rate Rhythm: regular rhythm GI soft to palpation GI Narrative: Mildly tender epigastrium no other areas of abdominal tenderness, no rebound or guarding. Pelvis stable to be compression nontender. Back/Spine normal ROM Back/Spine Narrative: Mild lower thoracic spinal tenderness, but the majority of the pain and tenderness is to the right of this, at the posterior aspect of ribs 10 and 11. No crepitance. No obvious contusions or hematomas or signs of trauma. Cervical Spine: Negative for cervical spine tenderness Thoracic Spine / Upper Back: thoracic spinal tenderness Lumbar Spine / Lower Back: Negative for lumbar spinal tenderness Extremity normal to inspection and full ROM General Extremety ED: Negative for tenderness Neuro oriented x3, CN's II-XII intact bilaterally, moves all extremities, no focal motor deficits and no sensory deficits noted Jeanette Coma Scale: document GCS findings Spontaneous Obeys Commands Oriented 15 Sensorium / Orientation: awake and alert Psych thought process normal Psych Narrative: Flat affect. Memory intact. Skin Skin Narrative: Laceration high left parietal scalp see above. No other signs of trauma. Lesions: no lesions Rashes: no rashes MDM MDM MDM Narrative Medical decision making narrative: Patient has a large laceration left parietal scalp, that was repaired after anesthetizing, see the procedure note, he then followed with screening testing from his fall/injuries, taking into consideration that he is anticoagulated and fell down an entire flight of stairs, family estimates 20 or more. He has some abdominal tenderness as well as some neck pain and back pain/tenderness although I am at a low suspicion for injuries to his spine. Given all of this, he was sent for CT of the head, cervical spine, and abdomen/pelvis, all of which showed no acute injuries. I reviewed the films, I reviewed the reports and I agree with them. I also reviewed 2 view x-ray series of the thoracic spine which on my interpretation shows nothing acute, and 2 view chest x-ray due to his recent respiratory symptoms/infection, that shows what appears to be a right lower lobe early infiltrate. Radiology considered this more likely to be atelectasis according to their interpretation, as well as a CT of the abdomen/pelvis which did not necessarily see consolidation/pneumonia. However --during the patient stay he began to become agitated and confused. Family was with him the whole time and they were concerned this is not like him. His c-collar was about to be removed by myself when they talk to me about this so I removed it, and I had nursing recheck his temperature, he was febrile at 101.9. At this point he was able to give us a urine sample, that came back negative and simultaneously we have treated him with Tylenol. That helped, his mentation cleared, and he was able to walk with a walker at baseline according to family, there were multiple members here. They will agree he is back at baseline now. I think treating him for pneumonia appear clearly is the reasonable thing to do here, especially since I sent him for COVID and influenza swabs and those were negative. He is not septic, nor is he hypoxic. His vital signs are otherwise stable and normal. At this time they are comfortable taking him home with antibiotics for pneumonia, he was given Rocephin IV here and will be prescribed Levaquin 750 mg daily for 5 days, we discussed reasons to return they are comfortable with that plan. Lab Data Attestation: I reviewed the patient's lab results. Labs: Laboratory Results - last 24 hr 04/18/23 04/18/23 04/18/23 13:15 13:15 15:30 WBC 9.5 RBC 4.62 Hgb 14.1 Hct 42.5 MCV 92.0 MCH 30.5 MCHC 33.2 RDW Std Deviation 41.3 RDW Coeff of Xavier 12.2 Plt Count 188 MPV 10.9 Immature Gran % (Auto) 0.500 Neut % (Auto) 84.1 H Lymph % (Auto) 7.2 L [place] % (Auto) 7.2 Eos % (Auto) 0.6 Baso % (Auto) 0.4 Absolute Neuts (auto) 8.0 H Absolute Lymphs (auto) 0.69 L Nucleated RBC % 0 Sodium 136 Potassium 4.1 Chloride 102 Carbon Dioxide 30.0 Anion Gap 4 L BUN 9 Creatinine 0.94 Estim Creat Clear Calc 63.73 Est GFR (MDRD) Af Amer 105 Est GFR (MDRD) Non-Af 86 BUN/Creatinine Ratio 9.5 L Glucose 143 H Calcium 9.0 Urine Color Yellow Urine Clarity Sl. Cloudy Urine pH 8.0 Ur Specific [place] 1.010 Urine Protein 15 H Urine Glucose (UA) Normal Urine Ketones 5 H Urine Occult Blood 25 H Urine Nitrite Negative Urine Bilirubin Negative Urine Urobilinogen Normal Ur Leukocyte Esterase Negative Urine RBC 0-5 SEEN Urine WBC 0 SEEN Ur Squamous Epith Cells 0-5 SEEN Urine Bacteria 0 SEEN Urine Mucus 0 SEEN Radiography Diagnostic Testing: Clinical Impression(s) from Imaging Studies Brain CT 04/18/23 12:55 IMPRESSION: Chronic involutional changes of the brain. Stable encephalomalacia in the right frontal lobe as well as in the focal area in the left frontoparietal lobe. Small scalp hematoma overlying the posterior left parietal occipital bone. Electronically Signed: Bertin Umanzor MD at 14:32 EDT , Cervical Spine CT 04/18/23 12:55 IMPRESSION: Normal unenhanced CT examination of the cervical spine. Electronically Signed: Bertin Umanzor MD at 14:40 EDT , Chest X-Ray 04/18/23 13:31 IMPRESSION: Increased markings at the right lung base suggestive of atelectasis. Electronically Signed: Bertin Umanzor MD at 14:41 EDT , Abdomen/Pelvis CT 04/18/23 13:34 IMPRESSION: Stable examination. Gallstones. Increased markings at the lung bases suggestive of atelectasis. Stable partial compression of the L1 vertebrae. Electronically Signed: Bertin Umanzor MD at 14:39 EDT , Thoracic Spine X-Ray 04/18/23 14:20 IMPRESSION: No acute abnormality is seen. Electronically Signed: Bertin Umanzor MD at 14:43 EDT , Procedures Lacerations scalp: Length: 6 cm Depth: Sub Q Shape: curvilinear Prep: Sterile Conditions and Chlorhexadine Laceration repair: Lidocaine with epi (1%, 4cc) and Local Irrigated (ml): 120 Number of Sutures/[place]: 8 Suture Information: - (skin piedad) Comment: good skin apposition & hemostasis after repair Discharge Plan Triage Chief Complaint: Fall Other Complaint: Laceration ED Provider: Delvin Parekh Dx/Rx/DC Orders Clinical Impression: Fall down steps, Laceration of scalp, Pneumonia, Anticoagulated, Closed head injury without loss of consciousness, Back contusion, Acute cervical myofascial strain Instructions: ED Head Injury (Adult) Prescriptions: New levofloxacin 750 mg tablet 750 mg PO DAILY Qty: 5 0RF No Action atorvastatin 10 MG tablet 10 mg PO QHS Label Comments: CHOLESTEROL glyburide [Diabeta] 5 MG tablet 5 mg PO BID Label Comments: BLOOD SUGAR calcium carbonate [Caltrate 600] 600 MG tablet 600 mg PO DAILY@0800 Label Comments: CALCIUM metformin 1,000 MG tablet 1,000 mg PO BIDCM Label Comments: BLOOD SUGAR omeprazole 20 MG capsule 20 mg PO DAILY Label Comments: ACID REFLUX fondaparinux [Arixtra] 10 MG/0.8 ML syringe 7.5 mg SQ DAILY Label Comments: BLOOD THINNER aspirin 81 MG tablet,chewable 81 mg PO DAILY@0800 Qty: 90 0RF Label Comments: [facility] levetiracetam 500 MG tablet 500 mg PO BID Qty: 30 0RF divalproex 500 MG tablet 1,000 mg PO UD Qty: 90 2RF Label Comments: SEIZURES Rx Instructions: Take 1000mg (2 tablets) in the morning and 500mg (1 tablet) in the evening [facility] Provider[facility] - 7 Days for suture removal (anytime 5-10 days should be ok for staple removal; follow up sooner or return to ER for any other concerns/worsening) Disposition Disposition: Home, Self Care
--- NOTE | 2023-04-18 13:34 | CT_ITS ---
STUDY: CT ABDOMEN AND PELVIS WITH CONTRAST REASON FOR EXAM: Male, 63 years old. Upper abd pain, fall down flight of steps RADIATION DOSAGE (If Supplied By Facility): CTDIvol = ( 15.14 ) mGy, DLP = ( 1222.82 ) mGycm TECHNIQUE: Transaxial images were obtained from the dome of the diaphragm to the symphysis pubis without oral contrast. [id number] 100ML was administered. Sagittal and coronal images were reconstructed. Individualized dose optimization techniques were used for this CT. COMPARISON: Comparison is made with prior examination dated December 20, 2020. FINDINGS: Mild degree of increased markings at the lung bases suggest lobar atelectasis. Coronary artery calcification. Normal liver. There are multiple gallstones. Normal spleen. Normal pancreas. Normal bilateral adrenal glands. Subcentimeter cyst is seen in the posterior midportion of the right kidney. 1 cm cyst in the mid posterior aspect of the left kidney. Normal visualized stomach. Normal small intestine. Normal colon. The appendix is visualized and appears normal. Normal abdominal aorta. There is an IVC filter in place. Normal retroperitoneum. Distended urinary bladder. Stable focal area of increased markings in the left buttock. There are diffuse degenerative changes of the visualized lumbar spine. Stable loss of right of the L1 vertebra. CT/Abdomen/Pelvis W IV Cont ONLY IMPRESSION: Stable examination. Gallstones. Increased markings at the lung bases suggestive of atelectasis. Stable partial compression of the L1 vertebrae. Electronically Signed: Bertin Umanzor MD at 14:39 EDT ,
[2023-04-18 13:36] LABS: Anion Gap 4 (5-15); BUN 9 mg/dL (7-18); BUN/Creat Ratio 9.5 RATIO (10-20); Chloride 102 mmol/L (98-107); Creatinine, Serum 0.94 mg/dL (0.70-1.30); EST Glomerular Filtration Rate 86 mL/min (>60); Est Glom Filt Rate - Afr Amer 105 mL/min (>60); Estimated Creatinine Clearance 63.73 ml/min; Glucose 143 mg/dL (74-106); Potassium 4.1 mmol/L (3.5-5.1); Sodium Level 136 mmol/L (136-145)
--- NOTE | 2023-04-18 14:20 | RAD_ITS ---
STUDY: X-RAY - THORACIC SPINE REASON FOR EXAM: Male, 63 years old. Fall/pain TECHNIQUE: 2 view(s) of the thoracic spine were obtained. Limited study due to the patient''s medical condition. COMPARISON: None. FINDINGS: Normal kyphosis of the thoracic spine. There is no substantial scoliosis. There is demineralization of the thoracic spine. Normal disc space heights. The soft tissue structures are unremarkable. RAD/Thoracic Spine 2 Views IMPRESSION: No acute abnormality is seen. Electronically Signed: Bertin Umanzor MD at 14:43 EDT ,
--- NOTE | 2023-04-18 14:43 | ED.RN ---
PT ACTING MORE AGITATED AND CONFUSED. PER [facility], PT ATTEMPTED TO GET OUT OF BED PRIOR TO GOING TO CT SCAN. PT SEEMS MORE CONFUSED COMPARED TO EARLIER AND MORE AGITATED,ATTEMPTING TO TAKE C-COLLAR OFF. DR CRUZ MADE AWARE. THIS RN EXPLAINED TO FAMILY WE CANNOT GIVE HIM ANY MEDICINE FOR AGITATION PER DR CRUZ D/T HEAD INJURY AND NEEDING TO ASSESS COGNITIVE FUNCTION. PER FAMILY, PT HAS BAD DAYS AND IS SOMETIMES CONFUSED BUT TODAY SEEMS WORSE.
[2023-04-18 14:47] VITALS: BP 104/92
[2023-04-18 15:35] LABS: Bacteria 0 SEEN /hpf (None Seen); Mucous, Urine 0 SEEN /hpf (<or=2+); White Blood Cells 0 SEEN /hpf (0-5)
[2023-04-18 15:40] VITALS: TEMP 38.8
[2023-04-18] MEDS: Acetaminophen 500 MG Tablet 1000 MG PO (15:48)
[2023-04-18 16:12] LABS: Color, Urine Yellow (Yellow); Glucose, Dipstick Normal (Normal); Ketone-Dipstick 5 mg/dl (Negative); Leukocyte Esterase-Dipstick Negative /ul (Negative); Nitrite-Dipstick Negative (Negative); Occult Blood-Urine 25 /ul (Negative); Protein-Dipstick 15 mg/dl (Negative); Urine Bilirubin Dipstick Negative (Negative); Urine Clarity Sl. Cloudy (Clear); Urine Urobilinogen Normal (Normal)
[2023-04-18 16:40] LABS: Red Blood Cells-Urine 0-5 SEEN /hpf (0-5); Squamous Epithelial Cells - UA 0-5 SEEN /hpf (0-5)
[2023-04-18] MEDS: Ceftriaxone 1 GM/50 ML BAG IV (17:20)
[2023-04-18 17:21] VITALS: RESP 16
== END 2023-04-18 17:52 | disposition home or self-care (01) ==
PROVIDERS: Emergency Provider Emergency Medicine; Visit Provider Emergency Medicine
DX: S01.01XA Laceration without foreign body of scalp, initial encounter (principal); J18.9 Pneumonia, unspecified organism; S09.90XA Unspecified injury of head, initial encounter; S20.229A Contusion of unspecified back wall of thorax, initial encounter; S16.1XXA Strain of muscle, fascia and tendon at neck level, initial encounter; I25.10 Atherosclerotic heart disease of native coronary artery without angina pectoris; G47.33 Obstructive sleep apnea (adult) (pediatric); Z86.718 Personal history of other venous thrombosis and embolism; Z86.73 Personal history of transient ischemic attack (TIA), and cerebral infarction without residual deficits; W10.9XXA Fall (on) (from) unspecified stairs and steps, initial encounter; Z79.01 Long term (current) use of anticoagulants
CPT/HCPCS: 12002; 70450; 71046; 72070; 72125; 74177; 80048; 81001; 85025; 87428; 96365; 99285; Q9967; A4216

== ENCOUNTER 2023-04-30 13:50 | Emergency (ER) | payer OTHER, SELFPAY ==
[2023-04-30 13:51] VITALS: BP 104/82; PULSE 54; RESP 18; TEMP 36.1; O2SAT 98
--- NOTE | 2023-04-30 14:05 | EDS_ITS ---
HPI History of Present Illness Chief Complaint: Suture Remv Detail of Chief Complaint: Requesting staple removal from scalp laceration Informant: patient Narrative Narrative: Patient presents to the emergency department requesting that his piedad to be removed. Patient states that he had a fall down some steps on April 18 and was seen in the ER and had piedad placed in his head. Patient has had no complications. He denies redness or drainage. [facility] Medical History (Updated 04/30/23 @ 14:[address] Rob Smith, ) CAD (coronary artery disease) DM2 (diabetes mellitus, type 2) DVT (deep venous thrombosis) Dyslipidemia Obesity KATHRINE (obstructive sleep apnea) Schizophrenia Seizure Slurred speech TIA (transient ischemic attack) Traumatic brain injury Home Medications atorvastatin 10 mg tablet 10 mg PO QHS 01/06/14 [History Last Taken 01/05/14] calcium carbonate 600 mg calcium (1,500 mg) tablet (Caltrate 600) 600 mg PO DAILY@0800 01/06/14 [History Last Taken 01/05/14] fondaparinux 10 mg/0.8 mL subcutaneous solution syringe (Arixtra) 7.5 mg SQ DAILY Blood Thinner 01/06/14 [History Last Taken Unknown] glyburide 5 mg tablet (Diabeta) 5 mg PO BID 01/06/14 [History Last Taken 01/05/14] metformin 1,000 mg tablet 1,000 mg PO BIDCM 01/06/14 [History Last Taken 01/05/14] omeprazole 20 mg capsule,delayed release 20 mg PO DAILY 01/06/14 [History Last Taken 01/05/14] aspirin 81 mg chewable tablet 81 mg PO DAILY@0800 ##90 01/07/14 [Rx Last Taken Unknown] levetiracetam 500 mg tablet 500 mg PO BID ##30 03/15/16 [Rx Last Taken Unknown] divalproex 500 mg tablet,extended release 24 hr 1,000 mg PO UD #90 tabs 04/22/22 [Rx Last Taken 01/05/14] levofloxacin 750 mg tablet 750 mg PO DAILY #5 tabs 04/18/23 [Rx Last Taken Unknown] Allergy/AdvReac Type Severity Reaction Status Date / Time heparin Allergy Swelling Verified 04/30/23 13:52 ibuprofen Allergy Unknown Verified 04/30/23 13:52 Family History (Updated 04/20/22 @ 17:[address] Samreen Martines MD) Mother Cancer Diabetes Father Cancer Diabetes Surgical History (Updated 04/20/22 @ 15:[address] Samreen Martines MD) H/O brain surgery History of percutaneous coronary intervention Social History (Updated 04/20/22 @ 15:[address] Samreen Martines MD) household members: spouse Smoking Status: Never smoker alcohol intake: never substance use type: does not use ROS ROS ED ROS Narrative Requesting staple removal from scalp laceration Review of Systems ROS Unobtainable: other Constitutional Constitutional ED: Reports lethargy; Denies chills, fever(s), sweats or weight loss Eyes Eyes: Denies blurry vision, change in vision or diplopia ENT ENT ED: Denies rhinorrhea or sore throat Cardiovascular Cardiovascular: Denies chest pain, orthopnea or racing heartbeat Respiratory/Chest Respiratory/Chest: Denies cough, dyspnea, dyspnea on exertion, orthopnea or sputum Gastrointestinal Gastrointestinal: Denies abdominal pain, diarrhea, nausea or vomiting Genitourinary Genitourinary ED: Denies dysuria, hematuria or urinary frequency Musculoskeletal Musculoskeletal: Denies arthralgias, back pain, myalgias or neck pain Integumentary Denies abscess, Abrasions or rash Neurologic Neurologic: Denies headache(s) or weakness Psychiatric Psychiatric: Denies anxiety, depression or suicidal thoughts Endocrine Endocrinology: Denies polydipsia, polyphagia or polyuria Hematologic/Lymphatic Hematologic/Lymphatic: Denies easy bleeding, easy bruising or lymphadenopathy Allergic/Immunologic Allergic/Immunologic ED: Denies mouth swelling, tongue swelling or urticaria EXAM Physical Exam Const Vital Signs: 04/30/23 13:51 Temperature 97 F L Temperature Source Temporal Pulse Rate 54 L Respiratory Rate 18 Blood Pressure 104/82 H Blood Pressure Mean 89 Pulse Ox 98 Oxygen Delivery Method Room Air Positive well nourished and well developed General Appearance ED: well developed and NAD HEENT Reports TM's clear and moist mucous membranes HEENT Narrative: Patient has approximately 5 cm scalp laceration left parietal region with 8 piedad. Wound edges are well approximated. There is no evidence of infection such as erythema or purulent drainage. normocephalic and atraumatic; Negative for trauma or tenderness Tympanic Membrane ED: Yes TM's clear Eyes PERRL and EOMs intact bilaterally General Eye ED: Negative for pale conjunctiva or scleral icterus Neck no lymphadenopathy, supple and no JVD General: Negative for tenderness Chest Wall inspection of chest normal and palpation of chest normal Chest: Negative for tenderness Resp normal respiratory effort and clear to auscultation bilaterally Effort and Inspection: Negative for respiratory distress or pain with movement Auscultation: Negative for rhonchi, wheezes or diminished lung sounds Cardio regular rate, regular rhythm, S1 normal heart sound, S2 normal heart sound and no murmurs Peripheral Pulses: pulses 2+ throughout GI normal to inspection, nondistended, normoactive bowel sounds, soft to palpation, non-tender, non-distended and no masses Back/Spine no CVA tenderness and no thoracic nor lumbar tenderness Extremity normal to inspection General Extremety ED: Negative for edema General Extremity: Negative for edema Neuro oriented x3, CN's II-XII intact bilaterally, no sensory deficits noted and gait normal Sensorium / Orientation: awake, alert, oriented to person, oriented to place and oriented to time Motor Exam: strength 5/5 throughout and strength abnormal Psych mental status grossly normal Skin no rashes or lesions noted and no wounds MDM MDM MDM Narrative Medical decision making narrative: Patient presents with request for staple removal from scalp laceration. [place] were easily removed and there was no evidence of dehiscence or complication. Patient advised to clean the wound gently with some soap and water. Advised to return if increasing pain, redness, drainage, or condition worsening way. Discharge Plan Triage Chief Complaint: Suture Remv ED Provider: Rob Smith Dx/Rx/DC Orders Clinical Impression: Removal of piedad Instructions: Sutr or Stap Removal Prescriptions: No Action atorvastatin 10 MG tablet 10 mg PO QHS Label Comments: CHOLESTEROL glyburide [Diabeta] 5 MG tablet 5 mg PO BID Label Comments: BLOOD SUGAR calcium carbonate [Caltrate 600] 600 MG tablet 600 mg PO DAILY@0800 Label Comments: CALCIUM metformin 1,000 MG tablet 1,000 mg PO BIDCM Label Comments: BLOOD SUGAR omeprazole 20 MG capsule 20 mg PO DAILY Label Comments: ACID REFLUX fondaparinux [Arixtra] 10 MG/0.8 ML syringe 7.5 mg SQ DAILY Label Comments: BLOOD THINNER aspirin 81 MG tablet,chewable 81 mg PO DAILY@0800 Qty: 90 0RF Label Comments: [facility] levetiracetam 500 MG tablet 500 mg PO BID Qty: 30 0RF divalproex 500 MG tablet 1,000 mg PO UD Qty: 90 2RF Label Comments: SEIZURES Rx Instructions: Take 1000mg (2 tablets) in the morning and 500mg (1 tablet) in the evening levofloxacin 750 mg tablet 750 mg PO DAILY Qty: 5 0RF [facility] Provider] - As Needed Disposition Disposition: Home, Self Care
== END 2023-04-30 14:26 | disposition home or self-care (01) ==
PROVIDERS: Emergency Provider Emergency Medicine; Visit Provider Emergency Medicine
DX: S01.01XD Laceration without foreign body of scalp, subsequent encounter (principal); W10.9XXD Fall (on) (from) unspecified stairs and steps, subsequent encounter; E11.9 Type 2 diabetes mellitus without complications; I25.10 Atherosclerotic heart disease of native coronary artery without angina pectoris; E78.5 Hyperlipidemia, unspecified; Z79.82 Long term (current) use of aspirin; Z79.890 Hormone replacement therapy; Z79.84 Long term (current) use of oral hypoglycemic drugs; Z79.899 Other long term (current) drug therapy
CPT/HCPCS: 99282

== ENCOUNTER 2023-07-10 13:15 | Inpatient (IN) | payer MEDICARE, MEDICAID, SELFPAY ==
[2023-07-10 06:00] VITALS: BMI 30.8
[2023-07-10 13:48] VITALS: BP 139/80; PULSE 74; RESP 17; TEMP 36.8; O2SAT 93
[2023-07-10 16:13] VITALS: BMI 31.4
[2023-07-10] MEDS: Methocarbamol 750 MG Tablet 500 MG PO ×2 (17:04→21:12)
[2023-07-10] MEDS: metFORMIN HCl 1,000 MG Tablet 1000 MG PO (17:04)
[2023-07-10] MEDS: Carbidopa/Levodopa 25/100 Tablet PO (17:09)
[2023-07-10 17:30] LABS: Bedside Glucose 297 mg/dL (74-106)
[2023-07-10 17:41] LABS: Bacteria 0 SEEN /hpf (None Seen); Mucous, Urine 0 SEEN /hpf (<or=2+); Red Blood Cells-Urine 0 SEEN /hpf (0-5); Squamous Epithelial Cells - UA 0 SEEN /hpf (0-5); White Blood Cells 0 SEEN /hpf (0-5)
[2023-07-10] MEDS: oxyCODONE 5 MG Tablet PO (17:42)
[2023-07-10 18:04] LABS: Color, Urine Yellow (Yellow); Glucose, Dipstick 1000 mg/dl (Normal); Ketone-Dipstick Negative (Negative); Leukocyte Esterase-Dipstick Negative /ul (Negative); Nitrite-Dipstick Negative (Negative); Occult Blood-Urine Negative /ul (Negative); Protein-Dipstick Negative (Negative); Urine Bilirubin Dipstick Negative (Negative); Urine Clarity Clear (Clear); Urine Urobilinogen Normal (Normal); Urine pH 6.5 (5.0 - 8.0)
[2023-07-10 20:30] VITALS: BP 125/82; PULSE 76; RESP 16; TEMP 36.6; O2SAT 93
[2023-07-10] MEDS: Ipratropium Bromide 0.06% NASAL SPRAY 2 SPRAY NASAL (20:52)
[2023-07-10] MEDS: Nystatin Powder 15gm Bottle 1 APPLIC TOPICAL (20:52)
[2023-07-10] MEDS: OLANZapine 10 MG Tablet 20 MG PO (21:09)
[2023-07-10] MEDS: levETIRAcetam 500 MG Tablet PO (21:09)
[2023-07-10] MEDS: Atorvastatin Calcium 40 MG Tablet PO (21:09)
[2023-07-10] MEDS: Divalproex (ER) 250 MG Tablet PO (21:09)
[2023-07-10] MEDS: Pantoprazole Sodium 40 MG Tablet PO (21:09)
[2023-07-10] MEDS: Acetaminophen 500 MG Tablet 1000 MG PO (21:09)
[2023-07-10] MEDS: Senna/Docusate Sodium 1 Tablet 2 TABLET PO (21:09)
[2023-07-10 21:14] LABS: Bedside Glucose 187 mg/dL (74-106)
[2023-07-10] MEDS: Menthol/Lanolin/Calamine/Znox 113 GM Tube 1 APPLIC TOPICAL (21:31)
[2023-07-10] MEDS: Insulin Lispro 100 UNIT/ML INSULN.PEN SC (21:32)
[2023-07-10] MEDS: Lacosamide 50 MG Tablet 150 MG PO (21:32)
[2023-07-11] MEDS: Carbidopa/Levodopa 25/100 Tablet PO ×5 (00:46→23:56)
[2023-07-11] MEDS: Acetaminophen 500 MG Tablet 1000 MG PO ×3 (05:20→21:27)
[2023-07-11] MEDS: Nystatin Powder 15gm Bottle 1 APPLIC TOPICAL ×2 (05:24→20:37)
[2023-07-11 05:41] LABS: Absolute Lymphocyte Count 2.84 X10^3/uL (0.83-4.51); Absolute Neutrophil Count 3.3 X10^3/uL (2.0-7.7); Basophil# 0.05 X10^3/uL; Basophil% 0.7 % (0-1); Eosinophil# 0.21 X10^3/uL; Eosinophils% 2.9 % (0-5); Hematocrit 36.7 % (40-54); Hemoglobin 12.3 g/dL (13.0-16.5); Lymphocyte # 2.84 X10^3/ul (0.83-4.51); Lymphocyte % 38.9 % (19-41); Mean Corp Hgb Conc 33.5 g/dL (32-36); Mean Corpuscular Hgb 30.4 pg (27.0-32.0); Mean Corpuscular Volume 90.8 fL (80-94); Mean Platelet Vol. 10.5 fl (6.2-12.0); Monocyte# 0.83 X10^3/uL; Monocyte% 11.4 % (0-10); NRBC Flagged by Analyzer 0 % (0-5); Neutrophil # 3.34 X10^3/uL (2.7-7.7); Neutrophil % 45.6 % (47-70); Platelet Count 220 K/mm3 (150-450); RBC Distribution Width CV 11.9 % (11.6-14.6); RBC Distribution Width SD 39.4 fl (35.1-43.9); Red Blood Count 4.04 M/mm3 (4.6-6.2); White Blood Count 7.3 K/mm3 (4.4-11.0)
[2023-07-11 05:44] LABS: Bedside Glucose 213 mg/dL (74-106)
[2023-07-11 06:38] LABS: ALB/GLOB Ratio 0.7 RATIO (0.9-2.4); AST(SGOT) 15 U/L (15-37); Alanine Aminotransfer ALT/SGPT 8 U/L (16-61); Albumin, Serum 2.5 g/dL (3.2-5.0); Alkaline Phosphatase 57 U/L (45-117); Anion Gap 4 (5-15); BUN 14 mg/dL (7-18); BUN/Creat Ratio 15.5 RATIO (10-20); Calcium,Total 8.8 mg/dL (8.5-10.1); Chloride 102 mmol/L (98-107); EST Glomerular Filtration Rate 91 mL/min (>60); Est Glom Filt Rate - Afr Amer 110 mL/min (>60); Estimated Creatinine Clearance 66.56 ml/min; Globulin 3.6 g/dL (2.2-4.2); Glucose 208 mg/dL (74-106); Magnesium 1.9 mg/dL (1.6-2.6); Phosphorus 3.5 mg/dL (2.5-4.9); Potassium 4.2 mmol/L (3.5-5.1); Protein, Total 6.1 g/dL (6.4-8.2); Sodium Level 138 mmol/L (136-145)
[2023-07-11 07:31] VITALS: O2SAT 93
[2023-07-11] MEDS: metFORMIN HCl 1,000 MG Tablet 1000 MG PO ×2 (08:12→17:08)
[2023-07-11] MEDS: Methocarbamol 750 MG Tablet 500 MG PO ×4 (08:13→20:34)
[2023-07-11] MEDS: levETIRAcetam 500 MG Tablet PO ×2 (08:13→20:35)
[2023-07-11] MEDS: Magnesium Chloride 64 MG Delay Rel.Tablet 128 MG PO (08:14)
[2023-07-11] MEDS: Pantoprazole Sodium 40 MG Tablet PO ×2 (08:15→20:34)
[2023-07-11] MEDS: Senna/Docusate Sodium 1 Tablet 2 TABLET PO ×2 (08:16→20:36)
[2023-07-11] MEDS: Propranolol LA 80 MG Capsule 160 MG PO (08:16)
[2023-07-11] MEDS: Calcium Carbonate 500 MG Tablet PO (08:17)
[2023-07-11] MEDS: Ipratropium Bromide 0.06% NASAL SPRAY 2 SPRAY NASAL ×2 (08:17→20:33)
[2023-07-11] MEDS: Lidocaine 5% Patch 1 PATCH TOPICAL (08:18)
[2023-07-11] MEDS: Insulin Lispro 100 UNIT/ML INSULN.PEN SC ×3 (08:22→21:26)
[2023-07-11] MEDS: Lacosamide 50 MG Tablet 150 MG PO ×2 (09:55→21:27)
[2023-07-11 10:00] VITALS: BP 125/74; PULSE 71; RESP 16; TEMP 36.3; O2SAT 96
[2023-07-11] MEDS: Menthol/Lanolin/Calamine/Znox 113 GM Tube 1 APPLIC TOPICAL ×2 (10:05→20:38)
[2023-07-11] MEDS: oxyCODONE 5 MG Tablet PO ×2 (11:58→20:34)
[2023-07-11 12:18] LABS: Bedside Glucose 235 mg/dL (74-106)
--- NOTE | 2023-07-11 14:02 | HP.PCM_ITS ---
[facility] - General General Date of Admission: 07/10/23 Date of Service: 07/11/23 Chief Complaint: Debility due to fall with intracerebral bleed. HPI Narrative RICKIE CLANCY, is a 63 YO M with a past medical history of coronary artery disease, history of DVT, chronic anticoagulation with Arixtra, seizure disorder, schizophrenia (on olanzapine and Depakote), hypertension, hyperlipidemia, diabetes mellitus type 2, obesity, Parkinson's disease, history of TBI (from a [facility] in 2002), history of TIA, stroke in 2017 and stroke in April 2023 with L side weakness and expressive aphasia (had a fall at that time and found him laying on the driveway) and obstructive sleep apnea who presented to an ED on 07/03/23 after a fall down [address] of the head without contrast showed suspected right side combined subdural hematoma/subarachnoid hematoma with minimal hemorrhagic contusion and separate adjacent smaller right-sided subdural hematoma. There was a 1 to 2 mm rightward midline shift and a scalp hematoma. There were probable regions of gliosis secondary to remote right- sided cerebral infarcts. He had acute minimally displaced right 3rd-5th rib fractures, age-indeterminate compression deformities of T4 and T5 and probable chronic compression deformity of L1. He had an incomplete fx of the R acromion and a ND fx of the R scapular body. He was transferred to [facility] as a trauma. GCS at presentation to was 14 with 1 point off for confusion. He was seen by neurology to manage seizure medications. He was already taking Lacosamide for seizures. He was also taking Depakote for mood management. Lacosamide dose was increased for the increased risk of seizures due to the intracerebral bleeding. He was also seen by orthopedics and no surgical intervention was required. He was seen by PT/OT while at and he is not functioning at his baseline with ADL's. [facility] rehab was recommended at [facility]. He was transferred to the acute inpt rehab unit at [facility] on 07/10/23 for 3 hours of therapy daily to restore function/independence at or near his level prior to the recent fall. Afebrile VSS Maintaining appropriate oxygen saturation on RA Oral intake is good The blood sugar record was reviewed. Blood sugars are not adequately controlled. The fasting blood sugar this morning was 213 and the blood sugar prior to lunch was 235. Discussed with nursing - no problems that need addressed Reviewed the PT/OT/ST notes Medication list reviewed. He is on a increased dose of Lacosamide for 7 days from the time of the trauma due to the increased risk of seizures with acute intracerebral bleed. He will be on Arixtra 2.5 mg daily for total of 14 days post trauma for DVT prophylaxis and then it will increase to 7.5 mg daily which he is on chronically for history of recurrent DVTs. He has only taken 2 Ox ycodone since admission to rehab.....1 yesterday and 1 today. He is NWB on the RUE and has a sling on the RUE. All lab drawn this morning was personally reviewed. The white blood cell count is normal at 7.3. Hemoglobin is 12.3 which is down from 14.1 on 04/18/2023. MCV and RDW are within normal limits. Platelets are within normal limits. Sodium is normal at 138 and the potassium is 4.2. The BUN is 14 with a creatinine of 0.9 which is within his baseline. Phosphorus is 3.5 and the mag is 1.9. LFTs are unremarkable. Echocardiogram in April 2023 showed a normal ejection fraction with no wall motion abnormalities, no diastolic dysfunction. There was aortic sclerosis but no stenosis. [facility] Medical History (Updated 07/12/23 @ 18:[address] Lacie Smith DO) CAD (coronary artery disease) Chronic anticoagulation DM2 (diabetes mellitus, type 2) DVT (deep venous thrombosis) Dyslipidemia History of CVA (cerebrovascular accident) History of vertebral compression fracture Left hemiparesis Obesity KATHRINE (obstructive sleep apnea) Parkinsons disease Schizophrenia Seizure disorder Slurred speech TIA (transient ischemic attack) Traumatic brain injury Home Medications atorvastatin 10 mg tablet 40 mg PO QHS cholesterol 01/06/14 [History Last Taken 01/05/14] calcium carbonate 600 mg calcium (1,500 mg) tablet (Caltrate 600) 600 mg PO DAILY@0800 supplement 01/06/14 [History Last Taken 01/05/14] fondaparinux 10 mg/0.8 mL subcutaneous solution syringe (Arixtra) 7.5 mg SQ DAILY Blood Thinner 01/06/14 [History Last Taken Unknown] glyburide 5 mg tablet (Diabeta) 5 mg PO BID DM 01/06/14 [History Last Taken 01/05/14] metformin 1,000 mg tablet 1,000 mg PO BIDCM DM 01/06/14 [History Last Taken 01/05/14] omeprazole 20 mg capsule,delayed release 20 mg PO DAILY indijestion 01/06/14 [History Last Taken 01/05/14] aspirin 81 mg chewable tablet 81 mg PO DAILY@0800 [facility] ##90 01/07/14 [Rx Last Taken Unknown] levetiracetam 500 mg tablet 500 mg PO BID seizures #30 TABLETS 03/15/16 [Rx Last Taken Unknown] divalproex 500 mg tablet,extended release 24 hr 250 mg PO DAILY epilepsy 07/10/23 [History Last Taken Unknown] Allergy/AdvReac Type Severity Reaction Status Date / Time heparin Allergy Swelling Verified 04/30/23 13:52 ibuprofen Allergy Unknown Verified 04/30/23 13:52 Family History Mother Cancer Diabetes Father Cancer Diabetes Surgical History H/O brain surgery History of percutaneous coronary intervention Social History household members: spouse Smoking Status: Never smoker alcohol intake: never substance use type: does not use ROS Constitutional Constitutional: Reports fatigue and weakness; Denies anorexia, chills or fever(s) Eyes Eyes: Denies change in vision, erythema, eye pain or itchy eyes ENT HEENT: Denies headache(s), nasal congestion, post nasal drip, sinus pain or sore throat Cardiovascular Cardiovascular: Denies chest pain Respiratory/Chest Respiratory/Chest: Reports cough Gastrointestinal Gastrointestinal: Denies abdominal pain, constipation, diarrhea, nausea or vomiting Genitourinary Genitourinary: Denies dysuria Musculoskeletal Musculoskeletal: Reports other Details: He complains of pain in the R shoulder and the R upper chest. Integumentary Integumentary: Reports dry skin; Denies jaundice, pruritus or rash Neurologic Neurologic: Reports confusion, dizziness, seizures and tremor(s); Denies headache(s) Endocrine Endocrinology: Denies polydipsia or polyuria Hematologic/Lymphatic Hematologic/Lymphatic: Reports easy bleeding Vital Signs Vital Signs Vital Signs: 07/10/23 16:42 07/10/23 19:20 07/10/23 20:30 Temperature 97.8 F Temperature Source Oral Pulse Rate 76 Pulse Strength Respiratory Rate 16 Respiratory Effort Normal Non-Labored Respiratory Depth Normal Respiratory Pattern Normal Blood Pressure 125/82 H Blood Pressure Mean 96 Blood Pressure Source Monitor Blood Pressure Position Semi-Fowlers Blood Pressure Location Right Arm Pulse Ox 93 Oxygen Delivery Method Room Air Room Air Room Air 07/11/23 07:31 07/11/23 10:00 07/11/23 10:00 Temperature 97.4 F L Temperature Source Oral Pulse Rate 71 Pulse Strength Normal (2+) Respiratory Rate 16 Respiratory Effort Respiratory Depth Respiratory Pattern Blood Pressure 125/74 H Blood Pressure Mean 91 Blood Pressure Source Monitor Blood Pressure Position Sitting Blood Pressure Location Left Arm Pulse Ox 93 96 Oxygen Delivery Method Room Air Room Air Weight Weight: 172 lb Body Mass Index (BMI) 31.4 Indicators for Scoring Admitted with or Primary Diagnosis of CVA/Stroke: No Hx of CVA/Stroke: Yes Modified Fe Score MRS Score at time of Evaluation: 0-No symptoms at all (He is not admitted with a stroke....he has a traumatic brain bleed. ) Physical Exam Const alert and no apparent distress Constitutional Narrative: Cooperative at this time. HX orf TBI and schizophrenia. Orientation / Consciousness: confused HEENT Negative for head/scalp atraumatic Mouth: dry mucous membranes Eyes Eyes Narrative: No DC from the eyes and no scleral icterus. No mattering of the eyelashes. No loss of vision. Neck supple and No nodes General: trachea midline Resp normal respiratory effort, normal air movement and clear to auscultation bilaterally Effort and Inspection: Negative for tachypneic or labored Cardio regular rate, regular rhythm, no murmurs, no rub and no gallops GI normal to inspection, nondistended, normoactive bowel sounds, soft to palpation and non-tender GI Narrative: No guarding with palpation Extremity no calf tenderness Extremity Narrative: both feet are warm to the touch with intact sensation. No clubbing. General Extremity: Negative for edema Skin General Skin Exam: no breakdown Rashes: no rashes Neuro Neuro Narrative: He has a tremor of the LUE at rest.......it stops when he moves his arm. No pil l rolling. RUE is not tremoring. Motor Exam: general weakness Psych Negative for denies homicidal ideation or denies suicidal ideation Psych Narrative: Has been agitated at times. He is appropriate and polite with me today. Denies hallucinations. Results Lab / Micro Data 07/11/23 05:04 07/11/23 05:04 Labs: Laboratory Results - last 24 hr 07/10/23 17:11: POC Glucose 297 H 07/10/23 17:36: Urine Color Yellow, Urine Clarity Clear, Urine pH 6.5, Ur Specific [place] 1.010, Urine Protein Negative, Urine Glucose (UA) 1000 H, Urine Ketones Negative, Urine Occult Blood Negative, Urine Nitrite Negative, Urine Bilirubin Negative, Urine Urobilinogen Normal, Ur Leukocyte Esterase Negative, Urine RBC 0 SEEN, Urine WBC 0 SEEN, Ur Squamous Epith Cells 0 SEEN, Urine Bacteria 0 SEEN, Urine Mucus 0 SEEN 07/10/23 20:49: POC Glucose 187 H 07/11/23 05:04: WBC 7.3, RBC 4.04 L, Hgb 12.3 L, Hct 36.7 L, MCV 90.8, MCH 30.4, MCHC 33.5, RDW Std Deviation 39.4, RDW Coeff of Xavier 11.9, Plt Count 220, MPV 10.5, Immature Gran % (Auto) 0.500, Neut % (Auto) 45.6 L, Lymph % (Auto) 38.9, [place] % (Auto) 11.4 H, Eos % (Auto) 2.9, Baso % (Auto) 0.7, Absolute Neuts (auto) 3.3, Absolute Lymphs (auto) 2.84, Nucleated RBC % 0, Sodium 138, Potassium 4.2, Chloride 102, Carbon Dioxide 32.0, Anion Gap 4 L, BUN 14, Creatinine 0.90, Estim Creat Clear Calc 66.56, Est GFR (MDRD) Af Amer 110, Est GFR (MDRD) Non-Af 91, BUN/Creatinine Ratio 15.5, Glucose 208 H, Calcium 8.8, Phosphorus 3.5, Magnesium 1.9, Total Bilirubin 0.50, AST 15, ALT 8 L, Alkaline Phosphatase 57, Total Protein 6.1 L, Albumin 2.5 L, Globulin 3.6, Albumin/Globulin Ratio 0.7 L 07/11/23 05:22: POC Glucose 213 H 07/11/23 11:55: POC Glucose 235 H Assessment & Plan Assessment/Plan (1) Debility: (2) Fall (on) (from) other stairs and steps, subsequent encounter: (3) Subdural hematoma: (4) Subarachnoid hemorrhage: (5) Ribs, multiple fractures: QUALIFIERS: Encounter type: subsequent encounter Fracture type: closed Laterality: right PLAN: Ribs 3-5 on the R (6) Fracture of right scapular body: QUALIFIERS: Encounter type: subsequent encounter Fracture type: closed Fracture alignment: nondisplaced (7) Closed fracture of acromion: QUALIFIERS: Encounter type: subsequent encounter Fracture alignment: nondisplaced Laterality: right (8) Concussion: QUALIFIERS: Encounter type: subsequent encounter Loss of consciousness presence/duration: unknown LOC status Qualified Code(s): S06.0XAD - Concussion with loss of consciousness status unknown, subsequent encounter (9) Chest wall contusion: QUALIFIERS: Encounter type: subsequent encounter Laterality: unspecified laterality Qualified Code(s): S20.219D - Contusion of unspecified front wall of thorax, subsequent encounter (10) Normochromic normocytic anemia: PLAN: More likely than not due to acute blood loss. (11) Chronic anticoagulation: PLAN: On Arixtra for hx of DVT's. Has an allergy to Heparin. (12) Parkinsons disease: (13) Seizure disorder: (14) KATHRINE (obstructive sleep apnea): (15) Schizophrenia: (16) Traumatic brain injury: PLAN: Remote [facility]. PLAN: Plan PLAN PT for gait stability OT for ADL's ST for evaluation Analgesics as needed Bowel protocol Fall precautions Assess for Anxiety/Depression GI prophylaxis with Protonix DVT prophylaxis with Arixtra 2.5 mg daily and increase on 07/18/23 Follow up with PCP, neurology and orthopedics following DC from IP Rehab AM lab including CMP, CBC, Mag and Phos all personally reviewed. HGBA1C and lipid panel in the AM. NIHSS and MRS not completed because he did not have a stroke.....he had traumatic intracerebral bleeding and was on an anticoagulant at the time. Charges/Coding Visit Charges Inpatient E&M: 59308 Init Hosp L2
[2023-07-11 17:29] LABS: Bedside Glucose 129 mg/dL (74-106)
[2023-07-11] MEDS: Atorvastatin Calcium 40 MG Tablet PO (20:35)
[2023-07-11] MEDS: OLANZapine 10 MG Tablet 20 MG PO (20:36)
[2023-07-11] MEDS: Divalproex (ER) 250 MG Tablet PO (21:27)
[2023-07-11 21:28] LABS: Bedside Glucose 179 mg/dL (74-106)
[2023-07-11 22:00] VITALS: BP 115/85; PULSE 66; RESP 17; TEMP 36.7; O2SAT 96
--- NOTE | 2023-07-12 01:22 | NURSING ---
Patient's orientation varies. He is currently alert to self, yelling out for help and not using call haddad to alert staff of transfers. Bed alarm in place. Reorientation to call haddad use several times and he is cooperative with staff. Patient voices understanding but shortly after he has been yelling out again. 1:1 provided, fluids provided, toileting, back rub. Will monitor.
--- NOTE | 2023-07-12 03:13 | NURSING ---
Staff has been in patient's room several times and he has been belligerent with staff. Patient is only alert to self. Patients neuro assessment remains unchanged. Will continue to monitor and provide 1:1.
--- NOTE | 2023-07-12 03:28 | NURSING ---
Patient screaming out for help. SEED CUTTER entered patients room and he cursed at her and said, well i finally got it off. SEED CUTTER inquired as to what he was referring to and he replied, the tv. The SEED CUTTER told him patients are sleeping and he should not be yelling and to use the call haddad. Patient said, aren't you going to help me find a channel to watch?
[2023-07-12] MEDS: Carbidopa/Levodopa 25/100 Tablet PO ×4 (05:07→23:32)
[2023-07-12] MEDS: Acetaminophen 500 MG Tablet 1000 MG PO ×3 (05:07→21:26)
[2023-07-12] MEDS: Nystatin Powder 15gm Bottle 1 APPLIC TOPICAL ×2 (05:08→21:55)
[2023-07-12 05:51] LABS: Bedside Glucose 179 mg/dL (74-106)
[2023-07-12 06:04] LABS: Cholesterol 108 mg/dL (200); High Density Lipoprotein 29 mg/dL; Triglycerides 145 mg/dL; Very Low Density Lipoprotein 29 mg/dL (5-40)
[2023-07-12 07:42] VITALS: O2SAT 96
[2023-07-12 08:16] VITALS: BP 104/66; PULSE 64; RESP 17; TEMP 36.1; O2SAT 94
[2023-07-12 08:21] LABS: Hemoglobin A1c 6.7 % (3.8-5.6)
[2023-07-12] MEDS: Insulin Lispro 100 UNIT/ML INSULN.PEN SC ×3 (08:22→21:56)
[2023-07-12] MEDS: Methocarbamol 750 MG Tablet 500 MG PO ×4 (08:28→21:22)
[2023-07-12] MEDS: Propranolol LA 80 MG Capsule 160 MG PO (08:30)
[2023-07-12] MEDS: Senna/Docusate Sodium 1 Tablet 2 TABLET PO (08:31)
[2023-07-12] MEDS: Magnesium Chloride 64 MG Delay Rel.Tablet 128 MG PO (08:31)
[2023-07-12] MEDS: Pantoprazole Sodium 40 MG Tablet PO ×2 (08:32→21:27)
[2023-07-12] MEDS: Ipratropium Bromide 0.06% NASAL SPRAY 2 SPRAY NASAL ×2 (08:32→21:21)
[2023-07-12] MEDS: Calcium Carbonate 500 MG Tablet PO (08:32)
[2023-07-12] MEDS: levETIRAcetam 500 MG Tablet PO ×2 (08:32→21:22)
[2023-07-12] MEDS: metFORMIN HCl 1,000 MG Tablet 1000 MG PO ×2 (08:33→17:23)
[2023-07-12] MEDS: Lidocaine 5% Patch 1 PATCH TOPICAL (08:33)
[2023-07-12] MEDS: Lacosamide 100 MG Tablet PO ×2 (08:37→21:56)
[2023-07-12] MEDS: Menthol/Lanolin/Calamine/Znox 113 GM Tube 1 APPLIC TOPICAL ×2 (08:47→21:55)
[2023-07-12] MEDS: oxyCODONE 5 MG Tablet PO ×2 (08:50→14:42)
[2023-07-12 13:42] LABS: Bedside Glucose 182 mg/dL (74-106)
--- NOTE | 2023-07-12 15:21 | REHABEVAL_ITS ---
Admission Information Primary Diagnosis:: Debility due to a fall causing intracerebral hemorrhage, rib fractures, a fracture of the R acromion and the R scapular body. Status Changes from Prescreening?: No changes Identified Actual Problem List:: Falls, Skin Intergrity, Pain, ALteration in Cmfrt, Cog nitve Impr/Memory Loss, Alteration in Sleep, Mobility Impaired, Self Care Deficit and Alteration-Leisure Activ. Potential Problem List:: DVT, Bleeding, Infection, UTI, Aspiration, Falls, Skin Integrity and Depression Risk of Complications DVT: PASCUAL Hose and - (Arixtra) Bleeding: Monitor Lab Values, Nursing to Teach Precautions for anti-coagulation therapy., Wound, if applicable, to be assessed every shift. and Stroke patients assessed for lethargy or change in status. Infection: Clinical Staff to Monitor for S/S of infection: and S/S of infection include fever, redness, warmth, etc. Urinary Tract Infection: Monitor for frequency, burning, discomfort, or incontinence. and Nursing will obtain urine sample for urinalysis and C&S when ordered. Aspiration: Clinical staff will monitor for coughing, drooling, congestion., Speech will evaluate swallowing and dsyphasia. and Nursing will monitor patient swallowing during meals. Falls: Patient will be evaluated for Fall Precautions and Patient will be placed on Fall Precautions as indicated per protocol. Skin Breakdown: Nursing will assess skin daily using assessment tool. and Nursing will place on Skin Breakdown Precautions as indicated. Pain: Clinical staff will assess patient's pain level per protocol., Medications will be given, if needed, and the pain level reassessed. and Other methods: Massage, distraction, decrease stimulus, etc. used PRN. Plan of Care Patient requires physician specializing in physical medicine and rehab oversight to provide close medical supervision of rehab issues including: Pain Management, Sleep Problems, Bowel and Bladder, Medical and co-morbidity Management, DVT prophylaxis, Rehabilitation Leadership and Coordination of treatment team Patient needs Physical Therapy: For a minimum of 1 hour and At least 5 out of 7 days Patient needs Physical Therapy to improve:: Mobility, Strengthening, Transfers, Stretching, ROM, Endurance, Stairs, Gait and Balance Patient needs Occupational Therapy: For a minimum of 1 hour and At least 5 out of 7 days Patient needs Occupational Therapy to improve ADL's incl.: Eating, Grooming, Bathing, Dressing, Toileting, Toilet transfers, Community Reintegration, Higher functioning activities, Household tasks, Adaptive Equipment, Splinting and Other activities as determined Patient requires speech therapy: For a minimum of 1 hour and At least 5 out of 7 days Patient requires speech therapy for: Swallowing, Cognition, Language Skills and Compensatory Strategies Patient requires 24/7 Rehabilitation Nursing for: Pain Issues, Identifying and preventing risk factors, Monitoring and reporting current medical conditions, Assisting with ambulation, transfer, and all ADL's, Teaching patients about disease process and medications, Family teaching, Providing safe environment, Bowel and Bladder Issues, Skin integrity and Medication Management Patient needs Thread Milling Machine Set Up Operator/ Case Management for: Discharge Planning, Arranging Home Equipment or Services and Family Interventions Patient needs Dietary and Nutrition Services for: Adequate Nutrition, Nutritional Supplements and Nutritional Education Goals Patient will remain: free from falls and or injury at time of discharge. Patient will perform bed mobility at: MOD I level of assist. Patient will complete transfers from bed to chair at: Standby Assist. Patient will ambulate: with LRD and - (20 feet with the least restrictive device at standby assist on various surfaces to allow return home with support) Patient will complete upper body dressing at: - (Set up) Patient will complete lower body dressing at: - (Minimal assistance with adaptive equipment as needed) Patient will complete toileting at: - (Min assist) Patient will perform bathing at: MOD I level of assist. Patient will complete grooming at: - (Set up/supervision) Patient will complete home management skills at: MOD I level of assist. Patient will achieve: - (1 curb step and 7-8 steps with 1 handrail at contact- guard assist to allow access to his home entrance.) Patient will have pain level of: of 3 or less Patient's skin will: remain intact Patient will receive: adequate nutrition. Discharge Planning Pt Prognosis for Sig. Practical Improv. w/in Reasonable Time: Fair Estimated Length of stay (days): 21 Anticipated D/C Destination: Home with Home Health Was Preadmission Assessment Accurate?: Yes
--- NOTE | 2023-07-12 15:30 | PCM.PROGNOTE ---
Subjective Subjective Afebrile VSS Maintaining appropriate oxygen saturation on RA Oral intake is good for food but poor for fluids. The blood sugar record was reviewed. Blood sugars are coming down somewhat. Postvoid residuals are all less than 200. Discussed with nursing - Night nursing reports he gets agitated after taking the Oxycodone. He slept very poorly last night due to confusion and agitation. Reviewed the PT/OT/ST notes Medication list reviewed. Hemoglobin A1c this morning is 6.7. The lipid panel shows a triglyceride of 145 with an LDL of 50 and an HDL of 29. He is currently on 40 mg of Lipitor nightly. Alex denies chest pain, headache, lightheadedness, palpitations, nausea/vomiting/abdominal pain, dysuria and calf pain. He is complaining of pain in his right upper chest and right shoulder where the acromion is fractured. He is not complaining of back pain. Objective Data Objective Data Vital Signs: Vital Signs Temp Pulse Resp BP Pulse Ox O2 Del Method 97 F L 64 17 104/66 94 Room Air 07/12/23 08:16 07/12/23 08:16 07/12/23 08:16 07/12/23 08:16 07/12/23 08:16 07/12/23 09:58 Oxygen Delivery Method Room Air Weight: 171 lb 15.369 oz Body Mass Index (BMI) 31.4 Intake & Output: Intake and Output for Last 24 Hours 07/10/23 07/11/23 07/12/23 23:59 23:59 23:59 Intake Total 240 / 240 680 / 680 700 / 700 Output Total 650 / 650 950 / 950 850 / 850 Balance -410 / -410 -270 / -270 -150 / -150 Lab / Micro Data 07/11/23 05:04 07/11/23 05:04 Labs: Laboratory Results - last 24 hr 07/11/23 17:07: POC Glucose 129 H 07/11/23 21:06: POC Glucose 179 H 07/12/23 05:06: Hemoglobin A1c 6.7 H, Triglycerides 145, Cholesterol 108, LDL Cholesterol 50, VLDL Cholesterol 29, HDL Cholesterol 29 L 07/12/23 05:32: POC Glucose 179 H 07/12/23 11:30: POC Glucose 182 H Physical Exam Const alert and no apparent distress Constitutional Narrative: Pleasant General Appearance: cooperative HEENT HEENT Narrative: Missing teeth and caries. He tells me that he is going to het them pulled and get dentures. No halitosis. No thrush. Mouth: dry mucous membranes Resp normal respiratory effort, no use of accessory muscles and clear to auscultation bilaterally Effort and Inspection: Negative for tachypneic or labored Cardio regular rate, regular rhythm, no murmurs and no gallops GI normal to inspection, nondistended, normoactive bowel sounds, non-tender and non-distended GI Narrative: no guarding with palpation Extremity Negative for no calf tenderness General Extremity: Negative for edema Skin General Skin Exam: no breakdown Rashes: no rashes Psych affect normal Appearance: appropriate Assessment & Plan Assessment/Plan (1) Debility: (2) Fall (on) (from) other stairs and steps, subsequent encounter: (3) Subdural hematoma: (4) Subarachnoid hemorrhage: (5) Ribs, multiple fractures: QUALIFIERS: Encounter type: subsequent encounter Fracture type: closed Laterality: right (6) Fracture of right scapular body: QUALIFIERS: Encounter type: subsequent encounter Fracture type: closed Fracture alignment: nondisplaced (7) Closed fracture of acromion: QUALIFIERS: Encounter type: subsequent encounter Fracture alignment: nondisplaced Laterality: right (8) Concussion: QUALIFIERS: Encounter type: subsequent encounter Loss of consciousness presence/duration: unknown LOC status Qualified Code(s): S06.0XAD - Concussion with loss of consciousness status unknown, subsequent encounter (9) Chest wall contusion: QUALIFIERS: Encounter type: subsequent encounter Laterality: unspecified laterality Qualified Code(s): S20.219D - Contusion of unspecified front wall of thorax, subsequent encounter (10) Normochromic normocytic anemia: (11) Chronic anticoagulation: (12) Parkinsons disease: (13) Seizure disorder: (14) KATHRINE (obstructive sleep apnea): (15) Schizophrenia: (16) Traumatic brain injury: PLAN: Plan 1. Continue therapy 2. Add Jardiance 10 mg daily to his current diabetic regimen. Would like to avoid insulin administration if possible. 3. Discontinue oxycodone. Scheduled tramadol 50 mg at 7 AM, 12 noon, 5 PM and 100 mg at HS 4. Trazodone 50 mg nightly as needed insomnia 5. Continue the sliding insulin scale 6. BMP in the a.m. - poor oral intake and the BUN is rising. May need to start IV fluids depending on the results of the BMP. Charges/Coding Visit Charges Inpatient E&M: 64158 Subs Hosp L2
[2023-07-12 17:00] LABS: Bedside Glucose 139 mg/dL (74-106)
[2023-07-12] MEDS: traMADol 50 MG Tablet PO (17:23)
[2023-07-12 19:48] VITALS: BP 97/52; PULSE 56; RESP 14; TEMP 36.6; O2SAT 95
[2023-07-12] MEDS: Divalproex (ER) 250 MG Tablet PO (21:21)
[2023-07-12] MEDS: OLANZapine 10 MG Tablet 20 MG PO (21:26)
[2023-07-12] MEDS: traZODone 50 MG Tablet PO (21:28)
[2023-07-12] MEDS: traMADol 50 MG Tablet 100 MG PO (21:55)
[2023-07-12] MEDS: Atorvastatin Calcium 40 MG Tablet PO (21:56)
[2023-07-12 22:06] LABS: Bedside Glucose 217 mg/dL (74-106)
[2023-07-13] MEDS: Acetaminophen 500 MG Tablet 1000 MG PO ×3 (06:08→21:06)
[2023-07-13] MEDS: Carbidopa/Levodopa 25/100 Tablet PO ×4 (06:08→23:16)
[2023-07-13] MEDS: traMADol 50 MG Tablet PO ×3 (06:12→17:25)
[2023-07-13] MEDS: Nystatin Powder 15gm Bottle 1 APPLIC TOPICAL ×2 (06:14→21:07)
[2023-07-13] MEDS: Insulin Lispro 100 UNIT/ML INSULN.PEN SC ×3 (06:17→21:10)
[2023-07-13 06:50] LABS: Bedside Glucose 238 mg/dL (74-106)
[2023-07-13 06:58] VITALS: O2SAT 95
[2023-07-13] MEDS: Lidocaine 5% Patch 1 PATCH TOPICAL (07:53)
[2023-07-13] MEDS: metFORMIN HCl 1,000 MG Tablet 1000 MG PO ×2 (07:58→17:25)
[2023-07-13] MEDS: Empagliflozin 10 MG Tablet PO (07:58)
[2023-07-13] MEDS: Pantoprazole Sodium 40 MG Tablet PO ×2 (07:58→21:06)
[2023-07-13] MEDS: Magnesium Chloride 64 MG Delay Rel.Tablet 128 MG PO (07:58)
[2023-07-13] MEDS: Propranolol LA 80 MG Capsule 160 MG PO (07:59)
[2023-07-13] MEDS: Calcium Carbonate 500 MG Tablet PO (07:59)
[2023-07-13] MEDS: Ipratropium Bromide 0.06% NASAL SPRAY 2 SPRAY NASAL ×2 (08:00→21:06)
[2023-07-13] MEDS: Menthol/Lanolin/Calamine/Znox 113 GM Tube 1 APPLIC TOPICAL ×2 (08:01→21:07)
[2023-07-13] MEDS: Senna/Docusate Sodium 1 Tablet 2 TABLET PO ×2 (08:02→21:06)
[2023-07-13] MEDS: Lacosamide 100 MG Tablet PO ×2 (08:03→21:06)
[2023-07-13] MEDS: levETIRAcetam 500 MG Tablet PO ×2 (08:03→21:05)
[2023-07-13] MEDS: Methocarbamol 750 MG Tablet 500 MG PO ×4 (08:03→21:05)
[2023-07-13 08:16] VITALS: BP 114/67; PULSE 60; RESP 16; TEMP 36.3; O2SAT 93
[2023-07-13 08:18] LABS: Anion Gap 2 (5-15); BUN 12 mg/dL (7-18); BUN/Creat Ratio 16.5 RATIO (10-20); Calcium,Total 8.3 mg/dL (8.5-10.1); Chloride 103 mmol/L (98-107); Creatinine, Serum 0.73 mg/dL (0.70-1.30); EST Glomerular Filtration Rate 117 mL/min (>60); Est Glom Filt Rate - Afr Amer 141 mL/min (>60); Estimated Creatinine Clearance 82.07 ml/min; Glucose 236 mg/dL (74-106); Potassium 4.1 mmol/L (3.5-5.1); Sodium Level 136 mmol/L (136-145)
[2023-07-13 11:20] LABS: Bedside Glucose 130 mg/dL (74-106)
[2023-07-13 16:42] LABS: Bedside Glucose 177 mg/dL (74-106)
[2023-07-13 19:39] VITALS: BP 109/61; PULSE 74; RESP 16; TEMP 36.7; O2SAT 95
[2023-07-13] MEDS: Divalproex (ER) 250 MG Tablet PO (21:05)
[2023-07-13] MEDS: OLANZapine 10 MG Tablet 20 MG PO (21:05)
[2023-07-13] MEDS: Atorvastatin Calcium 40 MG Tablet PO (21:06)
[2023-07-13] MEDS: traMADol 50 MG Tablet 100 MG PO (21:06)
[2023-07-13 21:43] LABS: Bedside Glucose 157 mg/dL (74-106)
[2023-07-13] MEDS: traZODone 50 MG Tablet PO (22:01)
[2023-07-14] MEDS: Carbidopa/Levodopa 25/100 Tablet PO ×4 (05:20→23:43)
[2023-07-14] MEDS: Acetaminophen 500 MG Tablet 1000 MG PO ×3 (05:20→20:58)
[2023-07-14] MEDS: Nystatin Powder 15gm Bottle 1 APPLIC TOPICAL ×2 (05:22→21:25)
[2023-07-14 07:17] LABS: Bedside Glucose 119 mg/dL (74-106)
[2023-07-14] MEDS: Lacosamide 100 MG Tablet PO ×2 (07:56→21:04)
[2023-07-14] MEDS: traMADol 50 MG Tablet PO ×3 (07:56→16:47)
[2023-07-14 08:00] VITALS: BP 99/58; PULSE 65; RESP 16; TEMP 36.7; O2SAT 92
[2023-07-14] MEDS: Pantoprazole Sodium 40 MG Tablet PO ×2 (08:10→20:57)
[2023-07-14] MEDS: levETIRAcetam 500 MG Tablet PO ×2 (08:10→20:56)
[2023-07-14] MEDS: Propranolol LA 80 MG Capsule 160 MG PO (08:10)
[2023-07-14] MEDS: Methocarbamol 750 MG Tablet 500 MG PO ×4 (08:10→20:56)
[2023-07-14] MEDS: Magnesium Chloride 64 MG Delay Rel.Tablet 128 MG PO (08:10)
[2023-07-14] MEDS: metFORMIN HCl 1,000 MG Tablet 1000 MG PO ×2 (08:11→16:45)
[2023-07-14] MEDS: Menthol/Lanolin/Calamine/Znox 113 GM Tube 1 APPLIC TOPICAL ×2 (08:12→21:24)
[2023-07-14] MEDS: Senna/Docusate Sodium 1 Tablet 2 TABLET PO ×2 (08:13→20:57)
[2023-07-14] MEDS: Empagliflozin 10 MG Tablet PO (08:13)
[2023-07-14] MEDS: Calcium Carbonate 500 MG Tablet PO (08:15)
[2023-07-14] MEDS: Ipratropium Bromide 0.06% NASAL SPRAY 2 SPRAY NASAL ×2 (08:16→20:55)
[2023-07-14] MEDS: Lidocaine 5% Patch 1 PATCH TOPICAL (08:17)
[2023-07-14 08:30] VITALS: BP 106/68
[2023-07-14 11:48] LABS: Bedside Glucose 107 mg/dL (74-106)
[2023-07-14 16:37] LABS: Bedside Glucose 136 mg/dL (74-106)
[2023-07-14 19:30] VITALS: BP 100/67; PULSE 70; RESP 16; TEMP 36.7; O2SAT 93
[2023-07-14] MEDS: Divalproex (ER) 250 MG Tablet PO (20:55)
[2023-07-14] MEDS: Atorvastatin Calcium 40 MG Tablet PO (20:56)
[2023-07-14] MEDS: OLANZapine 10 MG Tablet 20 MG PO (20:59)
[2023-07-14] MEDS: traZODone 50 MG Tablet PO (21:00)
[2023-07-14] MEDS: traMADol 50 MG Tablet 100 MG PO (21:04)
[2023-07-14 21:41] VITALS: O2SAT 93
[2023-07-14 21:53] LABS: Bedside Glucose 120 mg/dL (74-106)
[2023-07-15] MEDS: Carbidopa/Levodopa 25/100 Tablet PO ×4 (05:46→22:40)
[2023-07-15] MEDS: Acetaminophen 500 MG Tablet 1000 MG PO ×3 (05:47→21:15)
[2023-07-15] MEDS: Nystatin Powder 15gm Bottle 1 APPLIC TOPICAL ×2 (05:47→21:20)
[2023-07-15 06:36] LABS: Bedside Glucose 114 mg/dL (74-106)
[2023-07-15 07:22] VITALS: BP 104/62; PULSE 63; RESP 16; TEMP 36.7; O2SAT 92
[2023-07-15] MEDS: Senna/Docusate Sodium 1 Tablet 2 TABLET PO ×2 (07:54→21:16)
[2023-07-15] MEDS: Calcium Carbonate 500 MG Tablet PO (07:54)
[2023-07-15] MEDS: Propranolol LA 80 MG Capsule 160 MG PO (07:54)
[2023-07-15] MEDS: Magnesium Chloride 64 MG Delay Rel.Tablet 128 MG PO (07:55)
[2023-07-15] MEDS: metFORMIN HCl 1,000 MG Tablet 1000 MG PO ×2 (07:55→16:58)
[2023-07-15] MEDS: Empagliflozin 10 MG Tablet PO (07:55)
[2023-07-15] MEDS: Pantoprazole Sodium 40 MG Tablet PO ×2 (07:55→21:15)
[2023-07-15] MEDS: Menthol/Lanolin/Calamine/Znox 113 GM Tube 1 APPLIC TOPICAL ×2 (07:56→21:20)
[2023-07-15] MEDS: levETIRAcetam 500 MG Tablet PO ×2 (07:57→21:15)
[2023-07-15] MEDS: Lidocaine 5% Patch 1 PATCH TOPICAL (07:57)
[2023-07-15] MEDS: Ipratropium Bromide 0.06% NASAL SPRAY 2 SPRAY NASAL ×2 (07:59→21:16)
[2023-07-15] MEDS: traMADol 50 MG Tablet PO ×3 (07:59→16:57)
[2023-07-15] MEDS: Methocarbamol 750 MG Tablet 500 MG PO ×4 (08:00→21:15)
[2023-07-15] MEDS: Lacosamide 100 MG Tablet PO ×2 (10:28→21:15)
--- NOTE | 2023-07-15 11:15 | PCM.PROGNOTE ---
Subjective Subjective Alex was seen on team rounds today. His was present in the room. Afebrile VSS - BP's are on the low side but, he continues to deny lightheadedness. He is taking propanolol LA 160 mg daily. Maintaining appropriate oxygen saturation on RA Oral intake is good. Fluid intake has even picked up. The blood sugar record was reviewed. Blood sugars are well controlled with no hypoglycemia. Jardiance was added to his drug regimen and lieu of starting a long-acting insulin. He has not had any lispro since 07/13/2023. Discussed with nursing -the night nurses reported that he was yelling out and demanding last night....he had been sleeping better with the addition of Trazodone to his regimen at night. He also gets Olanzapine and Tramadol 100 mg at HS. Reviewed the PT/OT/ST notes Medication list reviewed. Alex denies lightheadedness, cephalgia, chest pain, shortness of breath, cough, palpitations, nausea/vomiting/abdominal pain, dysuria and calf pain. His primary complaint is right shoulder pain. He has a R scapular body fx and a R acromion fx. Objective Data Objective Data Vital Signs: Vital Signs Temp Pulse Resp BP Pulse Ox O2 Del Method 98.1 F 63 16 104/62 92 Room Air 07/15/23 07:22 07/15/23 07:22 07/15/23 07:22 07/15/23 07:22 07/15/23 07:22 07/15/23 07:22 Oxygen Delivery Method Room Air Weight: 171 lb 15.369 oz Body Mass Index (BMI) 31.4 Intake & Output: Intake and Output for Last 24 Hours 07/13/23 07/14/23 07/15/23 23:59 23:59 23:59 Intake Total 1560 / 1560 1320 / 1320 200 / 200 Output Total 1750 / 1750 1625 / 1625 400 / 400 Balance -190 / -190 -305 / -305 -200 / -200 Lab / Micro Data 07/11/23 05:04 07/13/23 06:58 Labs: Laboratory Results - last 24 hr 07/14/23 11:27: POC Glucose 107 H 07/14/23 16:17: POC Glucose 136 H 07/14/23 21:11: POC Glucose 120 H 07/15/23 06:01: POC Glucose 114 H Physical Exam Const alert and no apparent distress General Appearance: cooperative HEENT Negative for head/scalp atraumatic Resp normal respiratory effort, normal air movement, no use of accessory muscles and clear to auscultation bilaterally Effort and Inspection: Negative for tachypneic or labored Cardio regular rate, regular rhythm, no murmurs, no rub and no gallops GI normal to inspection, nondistended, normoactive bowel sounds, soft to palpation, non-tender and non-distended GI Narrative: no guarding with palpation Extremity Negative for no calf tenderness General Extremity: Negative for edema Skin General Skin Exam: no breakdown Rashes: no rashes Neuro Neuro Narrative: He has a tremor of the LUE at rest.......it stops when he moves his arm. No pill rolling. RUE is not tremoring. Motor Exam: general weakness Psych Psych Narrative: He is most of the time very cooperative with staff but, sometimes he is yelling for a nurse and sometimes he uses the call light. He was somewhat agitated this afternoon with staff. Sometimes confused, mostly in the evening though. Assessment & Plan Assessment/Plan (1) Debility: (2) Fall (on) (from) other stairs and steps, subsequent encounter: (3) Subdural hematoma: (4) Subarachnoid hemorrhage: (5) Ribs, multiple fractures: QUALIFIERS: Encounter type: subsequent encounter Fracture type: closed Laterality: right (6) Fracture of right scapular body: QUALIFIERS: Encounter type: subsequent encounter Fracture type: closed Fracture alignment: nondisplaced (7) Closed fracture of acromion: QUALIFIERS: Encounter type: subsequent encounter Fracture alignment: nondisplaced Laterality: right (8) Concussion: QUALIFIERS: Encounter type: subsequent encounter Loss of consciousness presence/duration: unknown LOC status Qualified Code(s): S06.0XAD - Concussion with loss of consciousness status unknown, subsequent encounter (9) Chest wall contusion: QUALIFIERS: Encounter type: subsequent encounter Laterality: unspecified laterality Qualified Code(s): S20.219D - Contusion of unspecified front wall of thorax, subsequent encounter (10) Normochromic normocytic anemia: (11) Chronic anticoagulation: (12) Parkinsons disease: (13) Seizure disorder: (14) KATHRINE (obstructive sleep apnea): (15) Schizophrenia: (16) Traumatic brain injury: PLAN: Plan 1. Continue therapy 2. Check orthostatics today. 3. Start giving the Olanzapine at 6 PM and continue to give the Tramadol and the Trazodone at HS to help with the behavioral problems in the evenings. He is cooperative during the day and may be having some owning. 4. BMP/MAG/CBC on . 5. He got 0.25 mg of Xanax this afternoon and it helped calm him down. 6. D/W PT using kinesiotape on the R shoulder to help stabilize the acromion.......they will try tomorrow but, he does not like anyone to touch his shoulder because is hurts. 7. Continue scheduled tramadol - he is not able to ask for it when he needs it and he is doing better with therapy since the pain is now better controlled. Charges/Coding Visit Charges Inpatient E&M: 00090 Subs Hosp L2
[2023-07-15 11:30] LABS: Bedside Glucose 125 mg/dL (74-106)
--- NOTE | 2023-07-15 14:46 | CASEMGMT ---
Social Work Rehab Unit Team Notes: IDT met w/pt and for team meeting. 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 Educated to pt approved until 07/22 with an insurance update due that day. SW let pt and know there is a copay of $1556, though this may be covered by pt's Medicaid. Pt and 's goal is for pt to return home at discharge with home health care. SW will continue to follow and participate in weekly team meeting. ANICETO Amezcua
[2023-07-15] MEDS: ALPRAZolam 0.25 MG Tablet PO (15:15)
[2023-07-15 16:38] LABS: Bedside Glucose 140 mg/dL (74-106)
[2023-07-15] MEDS: OLANZapine 10 MG Tablet 20 MG PO (17:59)
--- NOTE | 2023-07-15 18:41 | NURSING ---
This patient's brought in $20 for patient to have haircut/loya trim. $20 in [place] given back to patient witnessed by CASHIER MANAGER due to patient not having haircut/loya trim till Saturday at 0930. Patient ok w/ this. Money is currently sitting on bedside table per patient request.
[2023-07-15 19:32] VITALS: BP 129/69; PULSE 75; RESP 18; TEMP 37; O2SAT 95
[2023-07-15] MEDS: Divalproex (ER) 250 MG Tablet PO (21:14)
[2023-07-15] MEDS: Atorvastatin Calcium 40 MG Tablet PO (21:15)
[2023-07-15] MEDS: traZODone 50 MG Tablet PO (21:15)
[2023-07-15] MEDS: traMADol 50 MG Tablet 100 MG PO (21:15)
[2023-07-15 22:05] LABS: Bedside Glucose 89 mg/dL (74-106)
--- NOTE | 2023-07-15 23:47 | NURSING ---
Pt set off BA and found feet over side of bed attempting to get up to pee. per pt report. Staff urged pt to rely on staff assistance for toileting needs and to retain safety. Pt repositioned in bed after using urinal. Within 3 minutes, pt set off call light for additional bed repositioning needs. 5 minutes after that, another call for staff to reposition rt arm and pillow.
--- NOTE | 2023-07-16 02:49 | NURSING ---
pt yelling out for HELP and staff found pt throwing legs over side of bed. Pt used urinal and staff assisted with repositioning pt in bed. Pt states that it's time to get up. Staff reorients pt to time of day, 02:45. Within 3 minutes, pt is using call light to ask to get oob. Staff reiterates that it is time to try to get back to sleep.
[2023-07-16] MEDS: traMADol 50 MG Tablet PO ×3 (06:14→17:18)
[2023-07-16] MEDS: Carbidopa/Levodopa 25/100 Tablet PO ×2 (06:14→15:02)
[2023-07-16] MEDS: Acetaminophen 500 MG Tablet 1000 MG PO ×3 (06:14→21:01)
[2023-07-16] MEDS: Nystatin Powder 15gm Bottle 1 APPLIC TOPICAL ×2 (06:15→21:01)
[2023-07-16 06:48] LABS: Bedside Glucose 120 mg/dL (74-106)
[2023-07-16 07:53] VITALS: BP 103/63; PULSE 72; RESP 16; TEMP 36.6; O2SAT 95
[2023-07-16] MEDS: Ipratropium Bromide 0.06% NASAL SPRAY 2 SPRAY NASAL ×2 (08:27→20:58)
[2023-07-16] MEDS: metFORMIN HCl 1,000 MG Tablet 1000 MG PO ×2 (08:27→18:19)
[2023-07-16] MEDS: Pantoprazole Sodium 40 MG Tablet PO ×2 (08:28→21:01)
[2023-07-16] MEDS: Magnesium Chloride 64 MG Delay Rel.Tablet 128 MG PO (08:28)
[2023-07-16] MEDS: Propranolol LA 80 MG Capsule 160 MG PO (08:28)
[2023-07-16] MEDS: Empagliflozin 10 MG Tablet PO (08:28)
[2023-07-16] MEDS: levETIRAcetam 500 MG Tablet PO ×2 (08:29→20:59)
[2023-07-16] MEDS: Lidocaine 5% Patch 1 PATCH TOPICAL (08:29)
[2023-07-16] MEDS: Calcium Carbonate 500 MG Tablet PO (08:31)
[2023-07-16] MEDS: Methocarbamol 750 MG Tablet 500 MG PO ×4 (08:31→21:00)
[2023-07-16] MEDS: Senna/Docusate Sodium 1 Tablet 2 TABLET PO ×2 (08:31→21:01)
[2023-07-16] MEDS: Lacosamide 100 MG Tablet PO ×2 (08:35→20:57)
[2023-07-16] MEDS: Menthol/Lanolin/Calamine/Znox 113 GM Tube 1 APPLIC TOPICAL ×2 (08:44→20:58)
--- NOTE | 2023-07-16 09:53 | NURSING ---
Spoke w/ therapy this am, patient reported to therapist that he was incontinent due to lack of assistance w/ care. Therapist expressed concern to this nurse due to being in room when patient put on light and assisting patient immediately to restroom. OT also noted that after shower patient c/o rash on back. Raised red splotches noted to patient back. Patient c/o itching and burning on back. Will notify of harish once arrival to unit. Patient then told this nurse that he had a moment of incontinence due to not tucking a towel. This moment of incontinence was told previously to OT that it was due to lack of assistance. Reorientation of patient provided. Patient put back into chair w/ PA on and call light w/in reach. Patient denies other needs at this time.
--- NOTE | 2023-07-16 11:12 | PCM.PROGNOTE ---
Subjective Subjective Afebrile VSS Maintaining appropriate oxygen saturation on RA Oral intake is good Blood sugar record was reviewed. Blood sugars are under excellent control. The blood sugar at at bedtime was 89 and the patient was asymptomatic. The fasting today was 120. Discussed with nursing - Nursing reports that the patient did not go to sleep until midnight and prior to going to sleep he was ringing the call haddad every 10 minutes. He awoke at 3 AM and wanted to get up but was reoriented and then slept the rest of the night. Nursing also reports a rash on his back that is pruritic. Reviewed the PT/OT/ST notes Medication list reviewed. He received Xanax yesterday for agitation and yelling out for a nurse every 10 minutes and it worked well. He was not drowsy and he calmed down and watched TV. Call light use significantly decreased. Alex denies cephalgia, lightheadedness, cough, shortness of breath, nausea/vomiting/abdominal pain, dysuria, diarrhea, constipation, calf pain. His only complaint continues to be his right shoulder pain but he is not complaining nearly as much. He is very pleasant and appropriate most of the time but, he starts to have problems in the evening. Objective Data Objective Data Vital Signs: Vital Signs Temp Pulse Resp BP Pulse Ox O2 Del Method 97.8 F 72 16 103/63 95 Room Air 07/16/23 07:53 07/16/23 07:53 07/16/23 07:53 07/16/23 07:53 07/16/23 07:53 07/16/23 10:00 Oxygen Delivery Method Room Air Weight: 171 lb 15.369 oz Body Mass Index (BMI) 31.4 Intake & Output: Intake and Output for Last 24 Hours 07/14/23 07/15/23 07/16/23 23:59 23:59 23:59 Intake Total 1320 / 1320 520 / 520 840 / 840 Output Total 1625 / 1625 900 / 900 350 / 350 Balance -305 / -305 -380 / -380 490 / 490 Lab / Micro Data 07/11/23 05:04 07/13/23 06:58 Labs: Laboratory Results - last 24 hr 07/15/23 11:09: POC Glucose 125 H 07/15/23 16:21: POC Glucose 140 H 07/15/23 21:19: POC Glucose 89 07/16/23 06:19: POC Glucose 120 H Physical Exam Const alert Constitutional Narrative: pleasant Willing to do therapy General Appearance: cooperative Resp clear to auscultation bilaterally Cardio regular rate and regular rhythm GI normal to inspection, nondistended, normoactive bowel sounds, soft to palpation and non-tender GI Narrative: good appetite and regular BM's Extremity no calf tenderness General Extremity: Negative for edema Skin Skin Narrative: he has minimal rash on the back and it looks more like a few pimples that have been scratched open.........does not look allergic to me. Assessment & Plan Assessment/Plan (1) Debility: (2) Fall (on) (from) other stairs and steps, subsequent encounter: (3) Subdural hematoma: (4) Subarachnoid hemorrhage: (5) Ribs, multiple fractures: QUALIFIERS: Encounter type: subsequent encounter Fracture type: closed Laterality: right (6) Fracture of right scapular body: QUALIFIERS: Encounter type: subsequent encounter Fracture type: closed Fracture alignment: nondisplaced (7) Closed fracture of acromion: QUALIFIERS: Encounter type: subsequent encounter Fracture alignment: nondisplaced Laterality: right (8) Concussion: QUALIFIERS: Encounter type: subsequent encounter Loss of consciousness presence/duration: unknown LOC status Qualified Code(s): S06.0XAD - Concussion with loss of consciousness status unknown, subsequent encounter (9) Chest wall contusion: QUALIFIERS: Encounter type: subsequent encounter Laterality: unspecified laterality Qualified Code(s): S20.219D - Contusion of unspecified front wall of thorax, subsequent encounter (10) Normochromic normocytic anemia: (11) Chronic anticoagulation: (12) Parkinsons disease: (13) Seizure disorder: (14) KATHRINE (obstructive sleep apnea): (15) Schizophrenia: (16) Traumatic brain injury: PLAN: Plan 1. Continue therapy. He is making good progress. 2. Change the dosing of Sinemet to 3 times daily AC. He has been getting it every 6 hours and he gets awoken at midnight to take his medicine. I am aware that Olanzapine may decrease the effectiveness of the Sinemet. He came to us on both. Will watch for any increased stiffness and bradykinesia with the decrease in the Sinemet to TID from q 6H. 3. Decrease the Glyburide in the evening to 5 mg but, continue with 10 mg in the AM. 4. DC Trazodone. 5. Start Klonopin 1 mg PO at 8PM nightly and use Xanax 0.25 mg Q6H as needed for agitation. 6. DC the sliding insulin scale. 7. Lab ordered for . 8. Hydrocortisone cream to the rash on his back twice daily PRN pruritus and have him wear a shirt to bed Charges/Coding Visit Charges Inpatient E&M: 25341 Subs Hosp L2
[2023-07-16 11:43] LABS: Bedside Glucose 151 mg/dL (74-106)
[2023-07-16] MEDS: ALPRAZolam 0.25 MG Tablet PO ×2 (15:41→20:57)
--- NOTE | 2023-07-16 15:44 | NURSING ---
Patient c/o extreme pain and restlessness. Patient given xanax for restlessness due to patient not being able to receive anything for pain due to scheduled medications. Patient states I wish I would have in that accident. No one should have to endure this pain. Patient repositioned, provided CC. Patient denies any further needs at this time. Doctor notified of comments made.
[2023-07-16 16:24] LABS: Bedside Glucose 140 mg/dL (74-106)
[2023-07-16] MEDS: OLANZapine 10 MG Tablet 20 MG PO (18:18)
--- NOTE | 2023-07-16 18:47 | NURSING ---
Patient noted to have been hearing a man outside talking and stated he needs to go talk to that man about his medications when asking for a direction this said person. Patient pointed outside of window. I reassured patient there was no man in his room. Reoriented patient and provided comfort care w/ patient.
[2023-07-16 19:08] VITALS: BP 116/78; PULSE 68; RESP 14; TEMP 37.6; O2SAT 94
[2023-07-16] MEDS: clonazePAM 1 MG Tablet PO (19:40)
[2023-07-16] MEDS: Divalproex (ER) 250 MG Tablet PO (20:59)
[2023-07-16] MEDS: Atorvastatin Calcium 40 MG Tablet PO (21:00)
[2023-07-16] MEDS: traMADol 50 MG Tablet 100 MG PO (21:03)
[2023-07-16 21:24] VITALS: O2SAT 94
[2023-07-16 22:03] LABS: Bedside Glucose 122 mg/dL (74-106)
--- NOTE | 2023-07-17 02:01 | NURSING ---
Reviewed and agree with Nanda ROWE, documentation and assessment charting.
--- NOTE | 2023-07-17 03:40 | NURSING ---
Pt has been awake through shift repeatedly yelling out, uses urinal and inappropriately continues to touch self in front of staff. Pt has been redirected many times through HS, Xanax only effective for small amounts of time.
--- NOTE | 2023-07-17 04:22 | NURSING ---
Pt demanding throughout the night, yelling out for help, throwing legs over side of bed but unable to reposition self in bed for comfort. Pt has had staff in room frequently for various needs. Pt will turn office [employer] consultant light as soon as staff leaves.
[2023-07-17] MEDS: Nystatin Powder 15gm Bottle 1 APPLIC TOPICAL ×2 (05:14→21:52)
[2023-07-17] MEDS: ALPRAZolam 0.25 MG Tablet PO ×2 (05:14→21:44)
[2023-07-17] MEDS: Acetaminophen 500 MG Tablet 1000 MG PO ×3 (05:14→21:43)
[2023-07-17 06:00] VITALS: BMI 32.4
[2023-07-17 06:47] LABS: Bedside Glucose 118 mg/dL (74-106)
--- NOTE | 2023-07-17 06:54 | NURSING ---
Pt just called this nurse in to get repositioned , walked into patient inappropriately touching self, redirected and repositioned. Pt thinks it is dinner time told him it was time for breakfast.
--- NOTE | 2023-07-17 06:57 | NURSING ---
pt has yelled out consistently throughout the night. Pt yelled out loud for help instead of using call light. Pt whispered demands once staff was in room. Speech was garbled and difficult to understand despite being able to yell loudly and clearly for help. pt would reposition self and then ask staff to reposition in bed. Pt barely slept and once staff thought pt was asleep, pt would be ambulating in bed.
[2023-07-17] MEDS: Lidocaine 5% Patch 1 PATCH TOPICAL (09:01)
[2023-07-17] MEDS: Propranolol LA 80 MG Capsule 160 MG PO (09:11)
[2023-07-17] MEDS: Pantoprazole Sodium 40 MG Tablet PO ×2 (09:12→21:44)
[2023-07-17] MEDS: levETIRAcetam 500 MG Tablet PO ×2 (09:12→21:43)
[2023-07-17] MEDS: Carbidopa/Levodopa 25/100 Tablet PO ×3 (09:12→17:31)
[2023-07-17] MEDS: Magnesium Chloride 64 MG Delay Rel.Tablet 128 MG PO (09:12)
[2023-07-17] MEDS: Methocarbamol 750 MG Tablet 500 MG PO ×4 (09:12→21:44)
[2023-07-17] MEDS: Calcium Carbonate 500 MG Tablet PO (09:12)
[2023-07-17] MEDS: Empagliflozin 10 MG Tablet PO (09:12)
[2023-07-17] MEDS: metFORMIN HCl 1,000 MG Tablet 1000 MG PO ×2 (09:12→17:31)
[2023-07-17] MEDS: traMADol 50 MG Tablet PO ×3 (09:13→17:56)
[2023-07-17] MEDS: Ipratropium Bromide 0.06% NASAL SPRAY 2 SPRAY NASAL ×2 (09:13→21:45)
[2023-07-17] MEDS: Senna/Docusate Sodium 1 Tablet 2 TABLET PO ×2 (09:13→21:43)
[2023-07-17] MEDS: Menthol/Lanolin/Calamine/Znox 113 GM Tube 1 APPLIC TOPICAL ×2 (09:14→21:52)
[2023-07-17 10:00] VITALS: BP 107/63; PULSE 72; RESP 18; TEMP 36.3; O2SAT 92
[2023-07-17] MEDS: Lacosamide 100 MG Tablet PO ×2 (10:06→21:42)
[2023-07-17 11:37] LABS: Bedside Glucose 129 mg/dL (74-106)
[2023-07-17 17:24] LABS: Bedside Glucose 117 mg/dL (74-106)
[2023-07-17] MEDS: OLANZapine 10 MG Tablet 20 MG PO (17:30)
[2023-07-17 18:56] VITALS: BP 104/61; PULSE 82; RESP 16; TEMP 36.3; O2SAT 97
[2023-07-17] MEDS: clonazePAM 1 MG Tablet PO (21:42)
[2023-07-17] MEDS: Divalproex (ER) 250 MG Tablet PO (21:42)
[2023-07-17] MEDS: traMADol 50 MG Tablet 100 MG PO (21:43)
[2023-07-17] MEDS: Atorvastatin Calcium 40 MG Tablet PO (21:44)
[2023-07-17 22:15] LABS: Bedside Glucose 194 mg/dL (74-106)
[2023-07-18] MEDS: traMADol 50 MG Tablet PO ×3 (06:44→17:12)
[2023-07-18] MEDS: Acetaminophen 500 MG Tablet 1000 MG PO ×3 (06:44→22:26)
[2023-07-18] MEDS: Carbidopa/Levodopa 25/100 Tablet PO ×3 (06:45→16:24)
[2023-07-18] MEDS: Nystatin Powder 15gm Bottle 1 APPLIC TOPICAL ×2 (06:47→20:45)
[2023-07-18 07:16] LABS: Hematocrit 40.2 % (40-54); Hemoglobin 13.7 g/dL (13.0-16.5); Mean Corp Hgb Conc 34.1 g/dL (32-36); Mean Corpuscular Hgb 31.1 pg (27.0-32.0); Mean Corpuscular Volume 91.2 fL (80-94); Mean Platelet Vol. 10.3 fl (6.2-12.0); Platelet Count 238 K/mm3 (150-450); RBC Distribution Width CV 12.4 % (11.6-14.6); RBC Distribution Width SD 40.7 fl (35.1-43.9); Red Blood Count 4.41 M/mm3 (4.6-6.2); White Blood Count 6.3 K/mm3 (4.4-11.0)
[2023-07-18 07:25] LABS: Bedside Glucose 111 mg/dL (74-106)
[2023-07-18 07:41] LABS: Anion Gap 5 (5-15); BUN 20 mg/dL (7-18); BUN/Creat Ratio 26.7 RATIO (10-20); Calcium,Total 8.7 mg/dL (8.5-10.1); Chloride 105 mmol/L (98-107); Creatinine, Serum 0.75 mg/dL (0.70-1.30); EST Glomerular Filtration Rate 113 mL/min (>60); Est Glom Filt Rate - Afr Amer 136 mL/min (>60); Estimated Creatinine Clearance 79.88 ml/min; Glucose 105 mg/dL (74-106); Magnesium 1.9 mg/dL (1.6-2.6); Potassium 4.3 mmol/L (3.5-5.1); Sodium Level 138 mmol/L (136-145)
[2023-07-18 08:49] VITALS: BP 99/65; PULSE 73; RESP 17; TEMP 36.4; O2SAT 93
[2023-07-18] MEDS: Lidocaine 5% Patch 1 PATCH TOPICAL (09:24)
[2023-07-18] MEDS: metFORMIN HCl 1,000 MG Tablet 1000 MG PO ×2 (09:25→17:13)
[2023-07-18] MEDS: Propranolol LA 80 MG Capsule 160 MG PO (09:25)
[2023-07-18] MEDS: Calcium Carbonate 500 MG Tablet PO (09:25)
[2023-07-18] MEDS: Empagliflozin 10 MG Tablet PO (09:25)
[2023-07-18] MEDS: levETIRAcetam 500 MG Tablet PO ×2 (09:25→20:44)
[2023-07-18] MEDS: Magnesium Chloride 64 MG Delay Rel.Tablet 128 MG PO (09:25)
[2023-07-18] MEDS: Pantoprazole Sodium 40 MG Tablet PO ×2 (09:25→20:46)
[2023-07-18] MEDS: Methocarbamol 750 MG Tablet 500 MG PO (09:26)
--- NOTE | 2023-07-18 09:27 | PCM.PROGNOTE ---
Subjective Subjective Afebrile VSS Maintaining appropriate oxygen saturation on RA Oral intake is mostly good. His last 2 meals he only ate 50-74% but, he usually eats 75-100%. Blood sugars are under good control. Discussed with nursing - no problems that need addressed. He slept well last night. He got Xanax dose at 944 last night. He had Klonopin 1 mg at 2000. No hallucinations last night. Still using the call light frequently at times and also yelling out at times. Xanax is very effective with him. Therapists tell me that he has been very tired in the AM's the past 2 days and is not doing as well. Reviewed the PT/OT/ST notes Medication list reviewed. All lab drawn this morning was personally reviewed. The white blood cell count and platelets are normal and the hemoglobin is 13.7. Sodium is 138 and the potassium is 4.3. The BUN is 20 which is up from 12 on 07/13/2023. Creatinine is stable at 0.75. Calcium is 8.7 and his magnesium is 1.9. Alex denies lightheadedness, vertigo, headache, cough, shortness of breath, chest pain, nausea/vomiting/abdominal pain, dysuria and pain in his calves. He is no longer c/o pain in the R shoulder to me. Objective Data Objective Data Vital Signs: Vital Signs Temp Pulse Resp BP Pulse Ox O2 Del Method 97.5 F L 73 17 99/65 93 Room Air 07/18/23 08:49 07/18/23 08:49 07/18/23 08:49 07/18/23 08:49 07/18/23 08:49 07/18/23 08:49 Oxygen Delivery Method Room Air Weight: 176 lb 5.917 oz Body Mass Index (BMI) 32.4 Intake & Output: Intake and Output for Last 24 Hours 07/16/23 07/17/23 07/18/23 23:59 23:59 23:59 Intake Total 1680 / 1680 535 / 535 Output Total 500 / 500 250 / 250 Balance 1180 / 1180 285 / 285 Lab / Micro Data 07/18/23 07:10 07/18/23 07:10 Labs: Laboratory Results - last 24 hr 07/17/23 11:11: POC Glucose 129 H 07/17/23 17:06: POC Glucose 117 H 07/17/23 21:51: POC Glucose 194 H 07/18/23 05:43: WBC Cancelled, Corrected WBC Cancelled, RBC Cancelled, Hgb Cancelled, Hct Cancelled, MCV Cancelled, MCH Cancelled, MCHC Cancelled, RDW Std Deviation Cancelled, RDW Coeff of Xavier Cancelled, Plt Count Cancelled, MPV Cancelled, Differential Comment Cancelled, Diff Path Review Cancelled, Sodium Cancelled, Potassium Cancelled, Chloride Cancelled, Carbon Dioxide Cancelled, Anion Gap Cancelled, BUN Cancelled, Creatinine Cancelled, Estim Creat Clear Calc Cancelled, Est GFR (MDRD) Af Amer Cancelled, Est GFR (MDRD) Non-Af Cancelled, BUN/Creatinine Ratio Cancelled, Glucose Cancelled, Calcium Cancelled, Magnesium Cancelled 07/18/23 06:55: POC Glucose 111 H 07/18/23 07:10: WBC 6.3, RBC 4.41 L, Hgb 13.7, Hct 40.2, MCV 91.2, MCH 31.1, MCHC 34.1, RDW Std Deviation 40.7, RDW Coeff of Xavier 12.4, Plt Count 238, MPV 10.3, Sodium 138, Potassium 4.3, Chloride 105, Carbon Dioxide 28.0, Anion Gap 5, BUN 20 H, Creatinine 0.75, Estim Creat Clear Calc 79.88, Est GFR (MDRD) Af Amer 136, Est GFR (MDRD) Non-Af 113, BUN/Creatinine Ratio 26.7 H, Glucose 105, Calcium 8.7, Magnesium 1.9 Physical Exam Const no apparent distress Constitutional Narrative: Somewhat drowsy but, able to stay attentive when I am talking with him. General Appearance: cooperative HEENT Mouth: dry mucous membranes Resp normal respiratory effort, no use of accessory muscles and clear to auscultation bilaterally Effort and Inspection: Negative for tachypneic or labored Cardio regular rate, regular rhythm and no gallops GI normal to inspection, nondistended, normoactive bowel sounds, non-tender and non-distended GI Narrative: no guarding with palpation Extremity Negative for no calf tenderness General Extremity: Negative for edema Skin General Skin Exam: no breakdown Rashes: no rashes Psych cooperative Psych Narrative: He is always pleasant and polite with me. He gets somewhat agitated in the late afternoon and evening. Sleeping better last night but, drowsy in the AM. Appearance: appropriate Assessment & Plan Assessment/Plan (1) Debility: (2) Fall (on) (from) other stairs and steps, subsequent encounter: (3) Subdural hematoma: (4) Subarachnoid hemorrhage: (5) Ribs, multiple fractures: QUALIFIERS: Encounter type: subsequent encounter Fracture type: closed Laterality: right (6) Fracture of right scapular body: QUALIFIERS: Encounter type: subsequent encounter Fracture type: closed Fracture alignment: nondisplaced (7) Closed fracture of acromion: QUALIFIERS: Encounter type: subsequent encounter Fracture alignment: nondisplaced Laterality: right (8) Concussion: QUALIFIERS: Encounter type: subsequent encounter Loss of consciousness presence/duration: unknown LOC status Qualified Code(s): S06.0XAD - Concussion with loss of consciousness status unknown, subsequent encounter (9) Chest wall contusion: QUALIFIERS: Encounter type: subsequent encounter Laterality: unspecified laterality Qualified Code(s): S20.219D - Contusion of unspecified front wall of thorax, subsequent encounter (10) Normochromic normocytic anemia: (11) Chronic anticoagulation: (12) Parkinsons disease: (13) Seizure disorder: (14) KATHRINE (obstructive sleep apnea): (15) Schizophrenia: (16) Traumatic brain injury: PLAN: Acute on chronic due to recent fall down the stairs striking his head in the fall with increased cognitive dysfunction. PLAN: Plan 1. Continue therapy 2. Change the Accu-Cheks to twice daily since they have been well controlled and all under 200 for at least 3 days now. 3. Increase Depakote to 500 mg at HS for better control of behavior 4. Decrease Klonopin to 0.5 mg at 1999 5. Change the methocarbamol to twice daily from 4 times daily. 6. Tramadol 50 mg at 7 12 and 5 PM as needed pain 4-10. 7. Continue Xanax 0.25 mg p.o. twice daily as needed agitation 8. If he continues to be drowsy in the morning we will discontinue Klonopin completely. I am hopeful that the increase in the Depakote will help with sleep and behavior control. 9. Difficult to maintain appropriate behavior in this gentleman with a chronic severe TBI, acute TBI and schizophrenia without making him drowsy. We will continue to adjust medications as needed. Charges/Coding Visit Charges Inpatient E&M: 30968 Subs Hosp L2
[2023-07-18] MEDS: Lacosamide 100 MG Tablet PO ×2 (09:41→20:43)
[2023-07-18] MEDS: Menthol/Lanolin/Calamine/Znox 113 GM Tube 1 APPLIC TOPICAL ×2 (10:12→20:45)
[2023-07-18 11:00] LABS: Valproic Acid (Depakene) Level 21 ug/mL (50-100)
[2023-07-18 11:29] LABS: Bedside Glucose 121 mg/dL (74-106)
[2023-07-18] MEDS: Methocarbamol 500 MG Tablet PO ×3 (14:41→22:26)
[2023-07-18 17:07] LABS: Bedside Glucose 122 mg/dL (74-106)
[2023-07-18] MEDS: OLANZapine 10 MG Tablet 20 MG PO (17:13)
[2023-07-18 20:00] VITALS: BP 107/59; PULSE 75; RESP 18; TEMP 36.6; O2SAT 94
[2023-07-18] MEDS: clonazePAM 1 MG Tablet PO (20:42)
[2023-07-18] MEDS: Ipratropium Bromide 0.06% NASAL SPRAY 2 SPRAY NASAL (20:43)
[2023-07-18] MEDS: Divalproex (ER) 500 MG Tablet PO (20:45)
[2023-07-18] MEDS: Atorvastatin Calcium 40 MG Tablet PO (20:46)
[2023-07-18] MEDS: Senna/Docusate Sodium 1 Tablet 2 TABLET PO (20:46)
[2023-07-18 21:55] LABS: Bedside Glucose 157 mg/dL (74-106)
[2023-07-18] MEDS: traMADol 50 MG Tablet 100 MG PO (22:26)
[2023-07-19] MEDS: Acetaminophen 500 MG Tablet 1000 MG PO ×3 (06:19→21:08)
[2023-07-19] MEDS: traMADol 50 MG Tablet PO (06:19)
[2023-07-19] MEDS: Carbidopa/Levodopa 25/100 Tablet PO ×3 (06:19→16:46)
[2023-07-19] MEDS: Nystatin Powder 15gm Bottle 1 APPLIC TOPICAL ×2 (06:25→21:11)
[2023-07-19 06:56] LABS: Bedside Glucose 85 mg/dL (74-106)
[2023-07-19 07:35] VITALS: BP 101/58; PULSE 64; RESP 14; TEMP 36.1; O2SAT 94
[2023-07-19] MEDS: Calcium Carbonate 500 MG Tablet PO (08:16)
[2023-07-19] MEDS: metFORMIN HCl 1,000 MG Tablet 1000 MG PO ×2 (08:16→16:45)
[2023-07-19] MEDS: Propranolol LA 80 MG Capsule 160 MG PO (10:06)
[2023-07-19] MEDS: Ipratropium Bromide 0.06% NASAL SPRAY 2 SPRAY NASAL ×2 (10:06→21:07)
[2023-07-19] MEDS: levETIRAcetam 500 MG Tablet PO ×2 (10:07→21:08)
[2023-07-19] MEDS: Lidocaine 5% Patch 1 PATCH TOPICAL (10:07)
[2023-07-19] MEDS: Empagliflozin 10 MG Tablet PO (10:07)
[2023-07-19] MEDS: Magnesium Chloride 64 MG Delay Rel.Tablet 128 MG PO (10:08)
[2023-07-19] MEDS: Methocarbamol 500 MG Tablet PO ×2 (10:08→21:09)
[2023-07-19] MEDS: Pantoprazole Sodium 40 MG Tablet PO ×2 (10:08→21:09)
[2023-07-19] MEDS: Senna/Docusate Sodium 1 Tablet 2 TABLET PO ×2 (10:09→21:08)
[2023-07-19] MEDS: Lacosamide 100 MG Tablet PO ×2 (10:18→21:09)
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
[2023-07-19 11:40] LABS: Bedside Glucose 98 mg/dL (74-106)
[2023-07-19] MEDS: Menthol/Lanolin/Calamine/Znox 113 GM Tube 1 APPLIC TOPICAL ×2 (14:19→21:10)
[2023-07-19] MEDS: Arthritis Pain Compound 60 CLICK TUBE TOPICAL ×2 (14:19→21:06)
[2023-07-19 16:51] LABS: Bedside Glucose 69 mg/dL (74-106)
[2023-07-19 17:16] LABS: Bedside Glucose 77 mg/dL (74-106)
[2023-07-19] MEDS: OLANZapine 10 MG Tablet 20 MG PO (18:05)
[2023-07-19 19:47] VITALS: BP 137/68; PULSE 69; RESP 18; TEMP 36.7; O2SAT 94
[2023-07-19] MEDS: Atorvastatin Calcium 40 MG Tablet PO (21:08)
[2023-07-19] MEDS: Divalproex (ER) 500 MG Tablet PO (21:09)
[2023-07-19] MEDS: traMADol 50 MG Tablet 100 MG PO (21:09)
[2023-07-19 22:09] LABS: Bedside Glucose 94 mg/dL (74-106)
[2023-07-20] MEDS: Arthritis Pain Compound 60 CLICK TUBE TOPICAL ×3 (05:28→20:49)
[2023-07-20] MEDS: Carbidopa/Levodopa 25/100 Tablet PO ×3 (05:28→16:59)
[2023-07-20] MEDS: Nystatin Powder 15gm Bottle 1 APPLIC TOPICAL ×2 (05:28→20:58)
[2023-07-20] MEDS: Acetaminophen 500 MG Tablet 1000 MG PO ×3 (05:28→20:52)
[2023-07-20] MEDS: ALPRAZolam 0.25 MG Tablet PO ×2 (06:34→20:59)
[2023-07-20] MEDS: traMADol 50 MG Tablet PO ×2 (06:34→17:01)
--- NOTE | 2023-07-20 06:35 | NURSING ---
Pt yelling out, multiple staff into room for different reasons, pt c/o pain in rt shoulder and being hungry. Medicated and given dalton doone cookies and explained that breakfast will be coming soon.
[2023-07-20 06:49] LABS: Bedside Glucose 114 mg/dL (74-106)
[2023-07-20 07:38] VITALS: BP 117/65; PULSE 71; RESP 16; TEMP 36.6; O2SAT 95
[2023-07-20] MEDS: Lidocaine 5% Patch 1 PATCH TOPICAL (09:20)
[2023-07-20] MEDS: Magnesium Chloride 64 MG Delay Rel.Tablet 128 MG PO (09:21)
[2023-07-20] MEDS: Propranolol LA 60 MG Capsule 120 MG PO (09:21)
[2023-07-20] MEDS: Methocarbamol 500 MG Tablet PO ×2 (09:21→20:52)
[2023-07-20] MEDS: Pantoprazole Sodium 40 MG Tablet PO ×2 (09:21→20:52)
[2023-07-20] MEDS: levETIRAcetam 500 MG Tablet PO ×2 (09:21→20:51)
[2023-07-20] MEDS: Empagliflozin 10 MG Tablet PO (09:22)
[2023-07-20] MEDS: metFORMIN HCl 1,000 MG Tablet 1000 MG PO ×2 (09:22→18:25)
[2023-07-20] MEDS: Calcium Carbonate 500 MG Tablet PO (09:22)
[2023-07-20] MEDS: Menthol/Lanolin/Calamine/Znox 113 GM Tube 1 APPLIC TOPICAL ×2 (09:23→20:58)
[2023-07-20] MEDS: Ipratropium Bromide 0.06% NASAL SPRAY 2 SPRAY NASAL (09:23)
[2023-07-20] MEDS: Lacosamide 100 MG Tablet PO ×2 (09:41→20:53)
[2023-07-20 12:43] LABS: Bedside Glucose 94 mg/dL (74-106)
[2023-07-20] MEDS: OLANZapine 10 MG Tablet 20 MG PO (16:59)
[2023-07-20 18:47] LABS: Bedside Glucose 79 mg/dL (74-106)
[2023-07-20 18:47] LABS: Bedside Glucose 178 mg/dL (74-106)
[2023-07-20 19:30] VITALS: BP 98/68; PULSE 74; RESP 18; TEMP 36.7; O2SAT 97
[2023-07-20] MEDS: Divalproex (ER) 500 MG Tablet PO (20:50)
[2023-07-20] MEDS: Atorvastatin Calcium 40 MG Tablet PO (20:51)
[2023-07-20] MEDS: Senna/Docusate Sodium 1 Tablet 2 TABLET PO (20:52)
[2023-07-20] MEDS: traMADol 50 MG Tablet 100 MG PO (20:53)
[2023-07-20 21:43] LABS: Bedside Glucose 157 mg/dL (74-106)
[2023-07-21] MEDS: Arthritis Pain Compound 60 CLICK TUBE TOPICAL ×3 (06:55→21:31)
[2023-07-21] MEDS: Acetaminophen 500 MG Tablet 1000 MG PO ×3 (06:55→21:34)
[2023-07-21] MEDS: Carbidopa/Levodopa 25/100 Tablet PO ×3 (06:55→17:08)
[2023-07-21] MEDS: Nystatin Powder 15gm Bottle 1 APPLIC TOPICAL (06:56)
[2023-07-21 07:18] LABS: Bedside Glucose 71 mg/dL (74-106)
[2023-07-21 07:53] VITALS: BP 117/67; PULSE 74; RESP 16; TEMP 36.1; O2SAT 94
[2023-07-21] MEDS: Magnesium Chloride 64 MG Delay Rel.Tablet 128 MG PO (08:29)
[2023-07-21] MEDS: Calcium Carbonate 500 MG Tablet PO (08:29)
[2023-07-21] MEDS: Methocarbamol 500 MG Tablet PO ×2 (08:29→21:34)
[2023-07-21] MEDS: Lidocaine 5% Patch 1 PATCH TOPICAL (08:29)
[2023-07-21] MEDS: Empagliflozin 10 MG Tablet PO (08:29)
[2023-07-21] MEDS: Pantoprazole Sodium 40 MG Tablet PO ×2 (08:29→21:35)
[2023-07-21] MEDS: metFORMIN HCl 1,000 MG Tablet 1000 MG PO ×2 (08:30→17:08)
[2023-07-21] MEDS: levETIRAcetam 500 MG Tablet PO ×2 (08:30→21:35)
[2023-07-21] MEDS: Propranolol LA 60 MG Capsule 120 MG PO (08:30)
[2023-07-21] MEDS: Ipratropium Bromide 0.06% NASAL SPRAY 2 SPRAY NASAL ×2 (08:31→21:31)
[2023-07-21 09:10] LABS: Bedside Glucose 138 mg/dL (74-106)
[2023-07-21] MEDS: Menthol/Lanolin/Calamine/Znox 113 GM Tube 1 APPLIC TOPICAL (09:36)
[2023-07-21] MEDS: Lacosamide 100 MG Tablet PO ×2 (09:36→21:35)
[2023-07-21] MEDS: traMADol 50 MG Tablet PO ×2 (11:36→17:09)
[2023-07-21 11:59] LABS: Bedside Glucose 93 mg/dL (74-106)
[2023-07-21] MEDS: OLANZapine 10 MG Tablet 20 MG PO (17:05)
[2023-07-21 17:43] LABS: Bedside Glucose 105 mg/dL (74-106)
[2023-07-21 20:00] VITALS: BP 104/62; PULSE 66; RESP 18; TEMP 36.3; O2SAT 94
[2023-07-21] MEDS: Senna/Docusate Sodium 1 Tablet 2 TABLET PO (21:34)
[2023-07-21] MEDS: Divalproex (ER) 500 MG Tablet PO (21:34)
[2023-07-21] MEDS: traMADol 50 MG Tablet 100 MG PO (21:34)
[2023-07-21] MEDS: Atorvastatin Calcium 40 MG Tablet PO (21:35)
[2023-07-21 22:05] LABS: Bedside Glucose 107 mg/dL (74-106)
[2023-07-22 05:50] LABS: Hematocrit 36.2 % (40-54); Hemoglobin 12.1 g/dL (13.0-16.5); Mean Corp Hgb Conc 33.4 g/dL (32-36); Mean Corpuscular Hgb 30.8 pg (27.0-32.0); Mean Corpuscular Volume 92.1 fL (80-94); Mean Platelet Vol. 10.7 fl (6.2-12.0); Platelet Count 213 K/mm3 (150-450); RBC Distribution Width CV 12.5 % (11.6-14.6); RBC Distribution Width SD 41.8 fl (35.1-43.9); Red Blood Count 3.93 M/mm3 (4.6-6.2); White Blood Count 5.2 K/mm3 (4.4-11.0)
[2023-07-22] MEDS: Arthritis Pain Compound 60 CLICK TUBE TOPICAL ×3 (05:51→21:18)
[2023-07-22] MEDS: Carbidopa/Levodopa 25/100 Tablet PO ×3 (05:52→17:00)
[2023-07-22] MEDS: Acetaminophen 500 MG Tablet 1000 MG PO ×3 (05:52→21:19)
[2023-07-22 06:21] LABS: Anion Gap 3 (5-15); BUN 13 mg/dL (7-18); BUN/Creat Ratio 19.7 RATIO (10-20); Calcium,Total 8.7 mg/dL (8.5-10.1); Chloride 106 mmol/L (98-107); Creatinine, Serum 0.66 mg/dL (0.70-1.30); EST Glomerular Filtration Rate 130 mL/min (>60); Est Glom Filt Rate - Afr Amer 157 mL/min (>60); Estimated Creatinine Clearance 90.77 ml/min; Glucose 62 mg/dL (74-106); Potassium 3.8 mmol/L (3.5-5.1); Sodium Level 140 mmol/L (136-145)
[2023-07-22 06:53] LABS: Bedside Glucose 80 mg/dL (74-106)
[2023-07-22 07:43] VITALS: BP 125/74; PULSE 71; RESP 15; TEMP 36; O2SAT 95
[2023-07-22] MEDS: metFORMIN HCl 1,000 MG Tablet 1000 MG PO ×2 (07:57→17:00)
[2023-07-22] MEDS: Calcium Carbonate 500 MG Tablet PO (07:57)
[2023-07-22] MEDS: Ipratropium Bromide 0.06% NASAL SPRAY 2 SPRAY NASAL ×2 (10:01→21:18)
[2023-07-22] MEDS: Propranolol LA 60 MG Capsule 120 MG PO (10:01)
[2023-07-22] MEDS: Empagliflozin 10 MG Tablet PO (10:01)
[2023-07-22] MEDS: Lidocaine 5% Patch 1 PATCH TOPICAL (10:02)
[2023-07-22] MEDS: levETIRAcetam 500 MG Tablet PO ×2 (10:02→21:19)
[2023-07-22] MEDS: Magnesium Chloride 64 MG Delay Rel.Tablet 128 MG PO (10:02)
[2023-07-22] MEDS: Senna/Docusate Sodium 1 Tablet 2 TABLET PO ×2 (10:03→21:20)
[2023-07-22] MEDS: Pantoprazole Sodium 40 MG Tablet PO ×2 (10:03→21:20)
[2023-07-22] MEDS: Methocarbamol 500 MG Tablet PO ×2 (10:03→21:22)
[2023-07-22] MEDS: Lacosamide 100 MG Tablet PO ×2 (10:09→21:25)
--- NOTE | 2023-07-22 11:16 | PCM.PROGNOTE ---
Subjective Subjective Alex was seen on team rounds today. His was present in the room. She is his 24/06 caregiver. Afebrile VSS Maintaining appropriate oxygen saturation on RA Oral intake is good No hypoglycemia but, the blood sugars are running a little on the low side ( tere in the AM) and every once in a while he will not eat well. Discussed with nursing - no problems that need addressed Reviewed the PT/OT/ST notes Medication list reviewed. All lab from this morning is personally reviewed. Hemoglobin is stable at 12.1. White blood cell count is normal and sure the platelets. Sodium is 140 and the potassium is 3.8. The BUN is 13 with a creatinine of 0.66 and this is improved due to increased fluid intake. Fasting blood sugar this morning was 62 on the a.m. blood work. Alex wants to go home. He is more alert this week with the changes in the drug regimen. He is sleeping well at night and has a good appetite. He continues to c/o R shoulder pain but, the arthritis cream helps somewhat. He is allowing the therapists to place the RUE sling at times now and this seems to help with the pain rather than letting the arm hang at his side. He denies cephalgia, cough, shortness of breath, palpitations, lightheadedness, nausea/vomiting/abdominal pain, burning with urination and calf pain. Objective Data Objective Data Vital Signs: Vital Signs Temp Pulse Resp BP Pulse Ox O2 Del Method 96.8 F L 71 15 125/74 H 95 Room Air 07/22/23 07:43 07/22/23 07:43 07/22/23 07:43 07/22/23 07:43 07/22/23 07:43 07/22/23 07:43 Oxygen Delivery Method Room Air Weight: 176 lb 5.917 oz Body Mass Index (BMI) 32.4 Intake & Output: Intake and Output for Last 24 Hours 07/20/23 07/21/23 07/22/23 23:59 23:59 23:59 Intake Total 440 / 440 Output Total 550 / 550 950 / 950 Balance -550 / -550 -510 / -510 Lab / Micro Data 07/22/23 05:37 07/22/23 05:37 Labs: Laboratory Results - last 24 hr 07/21/23 11:38: POC Glucose 93 08/20/23 17:08: POC Glucose 105 07/21/23 21:39: POC Glucose 107 H 07/22/23 05:37: WBC 5.2, RBC 3.93 L, Hgb 12.1 L, Hct 36.2 L, MCV 92.1, MCH 30.8, MCHC 33.4, RDW Std Deviation 41.8, RDW Coeff of Xavier 12.5, Plt Count 213, MPV 10.7, Sodium 140, Potassium 3.8, Chloride 106, Carbon Dioxide 31.0, Anion Gap 3 L, BUN 13, Creatinine 0.66 L, Estim Creat Clear Calc 90.77, Est GFR (MDRD) Af Amer 157, Est GFR (MDRD) Non-Af 130, BUN/Creatinine Ratio 19.7, Glucose 62 L, Calcium 8.7 07/22/23 06:32: POC Glucose 80 Physical Exam Const alert General Appearance: cooperative Resp normal respiratory effort and clear to auscultation bilaterally Effort and Inspection: Negative for tachypneic or labored GI normal to inspection, nondistended, normoactive bowel sounds, soft to palpation and non-tender GI Narrative: No guarding with palpation. Regular bowel function. Extremity no calf tenderness General Extremity: Negative for edema Skin General Skin Exam: no breakdown Rashes: no rashes Wounds: Negative for wounds noted Assessment & Plan Assessment/Plan (1) Debility: (2) Fall (on) (from) other stairs and steps, subsequent encounter: (3) Subdural hematoma: (4) Subarachnoid hemorrhage: (5) Ribs, multiple fractures: QUALIFIERS: Encounter type: subsequent encounter Fracture type: closed Laterality: right (6) Fracture of right scapular body: QUALIFIERS: Encounter type: subsequent encounter Fracture type: closed Fracture alignment: nondisplaced (7) Closed fracture of acromion: QUALIFIERS: Encounter type: subsequent encounter Fracture alignment: nondisplaced Laterality: right (8) Concussion: QUALIFIERS: Encounter type: subsequent encounter Loss of consciousness presence/duration: unknown LOC status Qualified Code(s): S06.0XAD - Concussion with loss of consciousness status unknown, subsequent encounter (9) Chest wall contusion: QUALIFIERS: Encounter type: subsequent encounter Laterality: unspecified laterality Qualified Code(s): S20.219D - Contusion of unspecified front wall of thorax, subsequent encounter (10) Normochromic normocytic anemia: (11) Chronic anticoagulation: (12) Parkinsons disease: (13) Seizure disorder: (14) KATHRINE (obstructive sleep apnea): (15) Schizophrenia: QUALIFIERS: Schizophrenia type: unspecified Qualified Code(s): F20.9 - Schizophrenia, unspecified (16) Traumatic brain injury: QUALIFIERS: Encounter type: subsequent encounter Loss of consciousness presence/duration: unknown LOC status Qualified Code(s): S06.9XAD - Unspecified intracranial injury with loss of consciousness status unknown, subsequent encounter PLAN: Plan 1. Continue therapy 2. Discontinue the evening dose of Micronase and continue 5 mg every morning. 3. Continue Depakote ER 500 mg at HS 4. change the Robaxin to PRN. 5. Valproic acid level on 07/24/23. 6. His will be coming in this week for family training and we plan DC on to home. His would like to have OP therapy post DC rather than HHC. SW aware. Charges/Coding Visit Charges Inpatient E&M: 12991 Subs Hosp L2
[2023-07-22 11:33] LABS: Bedside Glucose 77 mg/dL (74-106)
[2023-07-22] MEDS: ALPRAZolam 0.25 MG Tablet PO ×2 (13:34→21:17)
--- NOTE | 2023-07-22 14:36 | CASEMGMT ---
Social Work Team meeting held today with pt and in attendance. Therapy and nursing provided update on pt progress while at the . Family training with scheduled for Saturday and with a discharge scheduled for 07/25. Team is recommending home health PT/OT/ST. Pt states pt does not do well with this and is requesting outpatient services. Team is agreeable. SW updated that [facility] has all three disciplines and is agreeable to this and can provide needed transportation. Pt will need a tyree walker at discharge, and has all other needed DME. Pt provides 24 hour care for pt and will continue this on discharge. Pt and are agreeable to discharge plan. DC date: 07/25 DC plan: Home with and out patient PT/OT/ST at [facility]. CRISTIN Pham
[2023-07-22 16:31] LABS: Bedside Glucose 78 mg/dL (74-106)
[2023-07-22] MEDS: OLANZapine 10 MG Tablet 20 MG PO (17:01)
[2023-07-22 19:40] VITALS: BP 107/65; PULSE 77; RESP 16; TEMP 36.6; O2SAT 95
[2023-07-22] MEDS: traMADol 50 MG Tablet PO (21:17)
[2023-07-22] MEDS: Atorvastatin Calcium 40 MG Tablet PO (21:19)
[2023-07-22] MEDS: Divalproex (ER) 500 MG Tablet PO (21:21)
--- NOTE | 2023-07-22 21:42 | NURSING ---
Pt consistently community health education coordinator light this HS. Pt either does not state what he wants when answered or asks very off questions such as Put me back in the room I was yesterday.'' Pt reoriented to space as he has not moved rooms.
--- NOTE | 2023-07-22 21:42 | NURSING ---
Pt is commission sales associate light as soon as staff leaves the room despite ensuring all needs are met before departing. While staff were answering other pt needs, pt yelled out Help! and staff came running. Pt was assisted with toileting needs and repositioned in bed. Pt has been commission sales associate light repeatedly since shift change and as long as staff is in room, pt is satisfied.
[2023-07-22 22:00] VITALS: O2SAT 95
[2023-07-23 00:25] LABS: Bedside Glucose 113 mg/dL (74-106)
[2023-07-23 00:25] LABS: Bedside Glucose 52 mg/dL (74-106)
[2023-07-23 00:56] LABS: Bedside Glucose 81 mg/dL (74-106)
--- NOTE | 2023-07-23 03:39 | NURSING ---
Reviewed and agree with Nanda ROWE documentation and assessment charting.
[2023-07-23 04:39] LABS: Bedside Glucose 125 mg/dL (74-106)
[2023-07-23] MEDS: Acetaminophen 500 MG Tablet 1000 MG PO ×3 (05:13→21:56)
[2023-07-23] MEDS: Arthritis Pain Compound 60 CLICK TUBE TOPICAL ×3 (05:13→21:52)
[2023-07-23] MEDS: Magnesium Hydroxide 30 ML UDC PO (06:34)
[2023-07-23] MEDS: Carbidopa/Levodopa 25/100 Tablet PO ×3 (06:34→16:28)
[2023-07-23 06:58] LABS: Bedside Glucose 116 mg/dL (74-106)
[2023-07-23 07:56] VITALS: BP 102/68; PULSE 77; RESP 16; TEMP 36.6; O2SAT 94
[2023-07-23] MEDS: Propranolol LA 60 MG Capsule 120 MG PO (08:42)
[2023-07-23] MEDS: Empagliflozin 10 MG Tablet PO (08:42)
[2023-07-23] MEDS: Calcium Carbonate 500 MG Tablet PO (08:42)
[2023-07-23] MEDS: Ipratropium Bromide 0.06% NASAL SPRAY 2 SPRAY NASAL ×2 (08:43→21:52)
[2023-07-23] MEDS: Senna/Docusate Sodium 1 Tablet 2 TABLET PO ×2 (08:43→21:55)
[2023-07-23] MEDS: Magnesium Chloride 64 MG Delay Rel.Tablet 128 MG PO (08:43)
[2023-07-23] MEDS: Pantoprazole Sodium 40 MG Tablet PO ×2 (08:43→21:55)
[2023-07-23] MEDS: metFORMIN HCl 1,000 MG Tablet 1000 MG PO ×2 (08:43→16:28)
[2023-07-23] MEDS: levETIRAcetam 500 MG Tablet PO ×2 (08:43→21:54)
[2023-07-23] MEDS: Lidocaine 5% Patch 1 PATCH TOPICAL (08:43)
[2023-07-23] MEDS: Lacosamide 100 MG Tablet PO ×2 (08:46→22:20)
--- NOTE | 2023-07-23 11:00 | CASEMGMT ---
Addendum entered by Maribeth Fuentes 07/23/23 14:27: Pt and choosing to dc 07/24/23. Team aware. CRISTIN Guerrero Original Note: Social Work Per nursing, pt is requesting to return home Saturday instead of . SW spoke with team and pt is ready for discharge either day. Family training is planned for pt today and tomorrow, therefore d/c date will be up to pt when she feels comfortable taking pt home. VM left with pt to inquire. PORSCHE met with pt and updated on the same. Pt is agreeable to wait until if this is 's preference. Order sent to [facility] for outpatient PT/OT/ST and requested they contact pt to set appointments. Order sent to [facility] for a Erich walker with request this be delivered to pt room by tomorrow 07/24. Pt has all other needed DME. Discharge Date: 07/24 or 07/25, pending 's decision Discharge Disposition: Home with and outpatient PT/OT/ST at [facility] CRISTIN Pham
[2023-07-23 11:24] LABS: Bedside Glucose 135 mg/dL (74-106)
--- NOTE | 2023-07-23 15:07 | CASEMGMT ---
Social Work Return call from [facility] and they do not have tyree walkers in stock. Phone call to Holli at [facility] and they do have them available. Referral sent to [facility]. Phone call to pt and updated. to package pick up tyree walker [facility] tomorrow. CRISTIN Newsome
[2023-07-23] MEDS: OLANZapine 10 MG Tablet 20 MG PO (16:28)
--- NOTE | 2023-07-23 16:36 | PCM.DC ---
Discharge Instructions Diet Discharge Diet: - (1800 calorie diet with consistent carbohydrates. Low fat.) Activity Discharge Activity: May Not Drive, May Shower and Use Walker (use walker at all times) Weight Bearing Status: Full weight bearing Dressing / Incision Call your doctor if you observe: Fever of 101 or Higher, Inability to urinate, Inability to have a bowel movement, Shortness of breath, Dizziness, Fainting spells, Swelling in the ankles, Chest pain, Calf discomfort, Uncontrolled pain and - (severe headache, new cough) Follow Up Care Please Follow Up With: [place] [facility] Test Results: Test results from this visit will be discussed in further detail at your follow-up appointment, if applicable. Pending Tests Upon Discharge: none Discharge Plan Admission Admit Date/Time: 07/10/23 13:15 Primary Reason for Your Visit: Debility due to a fall with intracerebral bleeding and acute on chronic TBI Attending Provider: Lacie Smith Primary Care Provider: [facility] Instructions Additional Instructions / Restrictions: 1. Alex is on some new medications to help him sleep at night and to help control his behavior. 2. His blood sugars are very well controlled on the medications he is being discharged on. He was started on a medication called Empagliflozin (Jardiance). Alex is known to have heart disease and this drug has been shown to decrease cardiovascular events by as much as 15%. This is why this medication was added. This medication also decreases blood sugar so we have been able to decrease the Micronase (Glyburide to 5 mg in the morning. He is currently on 10 mg of Jardiance. 3. He has had no seizures while on rehab. We have had some issues with behavior, including hallucinations, so the Depakote ER was increased from 250 mg at bedtime to 500 mg and he has had no hallucinations or aggressive behavior recently. He should have a Valproic acid level drawn in about 1 week. Valproic acid is Depakote and it will give us a level to make sure he is not getting too much of the medication. Depakote is an anti-seizure medication that is also used to treat psychiatric diagnoses. 4. Cholesterol is well controlled on the Atorvastatin. 5. He is unsteady walking and will need to use the walker at all times when ambulating for now. He had a history of a severe traumatic brain injury prior to the recent fall and now he has an acute injury on top of the chronic in [facility] so things have changed somewhat. 6. If you have any questions after leaving rehab please do not hesitate to call me. OFFICE: [phone] CELL: [phone] Discharge Orders/Prescriptions Prescriptions: New glyburide 5 mg Tablet 5 mg PO BREAKFAST Qty: 30 0RF acetaminophen 500 mg Tablet 1,000 mg PO Q8 PRN (Reason: pain) Qty: 180 0RF divalproex 500 mg Tablet Extended Release 24 Hr 500 mg PO QHS Qty: 30 0RF lidocaine 5 % Adhesive Patch,Medicated 1 patch topical DAILY Qty: 30 0RF Protocol: *Topical Application Instructions APPLICATION INSTRUCTIONS: ribs Rx Instructions: Apply to the R shoulder in the AM and remove at bedtime ipratropium bromide 42 mcg (0.06 %) [place],Non-Aerosol 2 spray NASAL BID Qty: 1 0RF Rx Instructions: For runny or stuffy nose carbidopa-levodopa 25-100 mg Tablet 1 tab PO TIDAC Qty: 90 0RF lacosamide [Vimpat] 100 mg Tablet 100 mg PO BID Qty: 60 0RF Jardiance 10 mg Tablet 10 mg PO DAILY Qty: 30 0RF propranolol 60 mg Capsule,Extended Release 24 Hr 120 mg PO DAILY Qty: 30 0RF Rx Instructions: For TBI sennosides-docusate sodium [Stool Softener-Stimulant Laxat] 8.6-50 mg Tablet 2 tab PO BID Qty: 120 0RF olanzapine 10 mg Tablet 20 mg PO DAILY@1800 Qty: 60 0RF Rx Instructions: 2 tabs at bedtime tramadol 50 mg Tablet 50 mg PO Q6H PRN (Reason: Pain Score 4-10) Qty: 20 0RF Rx Instructions: Try Tylenol first and if the pain is not relieved give Tramadol Mag 64 64 mg Tablet,Delayed Release (Dr/Ec) 128 mg PO DAILY Qty: 30 0RF Continued atorvastatin 10 MG tablet 40 mg PO QHS Patient Comments: CHOLESTEROL calcium carbonate [Caltrate 600] 600 MG tablet 600 mg PO DAILY@0800 Patient Comments: CALCIUM metformin 1,000 MG tablet 1,000 mg PO BIDCM Patient Comments: BLOOD SUGAR omeprazole 20 MG capsule 20 mg PO DAILY Patient Comments: ACID REFLUX fondaparinux [Arixtra] 10 MG/0.8 ML syringe 7.5 mg SQ DAILY Patient Comments: BLOOD THINNER levetiracetam 500 MG tablet 500 mg PO BID Qty: 30 0RF Held aspirin 81 MG tablet,chewable 81 mg PO DAILY@0800 Qty: 90 0RF Hold Instructions: Hold this medication until the neurologist feels it is safe to restart. Patient Comments: [facility] Discontinued glyburide [Diabeta] 5 MG tablet 5 mg PO BID Patient Comments: BLOOD SUGAR divalproex 500 MG tablet 250 mg PO DAILY Patient Comments: SEIZURES Referrals / Follow Up: noemi Corbin [Other] - 08/14/23 2:15 pm (Ortho F/U) [facility] [Other] (Appointment 08-16-23 at 9:00am ) Disposition Disposition (needs filled in before D/C Order can be placed): Home Health Service
[2023-07-23 16:53] LABS: Bedside Glucose 150 mg/dL (74-106)
[2023-07-23] MEDS: traMADol 50 MG Tablet PO ×2 (17:01→22:01)
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
[2023-07-23 19:49] VITALS: BP 109/64; PULSE 71; RESP 18; TEMP 36.6; O2SAT 95
[2023-07-23 21:26] LABS: Bedside Glucose 185 mg/dL (74-106)
[2023-07-23] MEDS: Divalproex (ER) 500 MG Tablet PO (21:53)
[2023-07-23] MEDS: Atorvastatin Calcium 40 MG Tablet PO (21:54)
[2023-07-23] MEDS: Methocarbamol 500 MG Tablet PO (21:59)
[2023-07-23 22:00] VITALS: PULSE 71; RESP 15; O2SAT 95
[2023-07-24] MEDS: Arthritis Pain Compound 60 CLICK TUBE TOPICAL (05:52)
[2023-07-24] MEDS: Acetaminophen 500 MG Tablet 1000 MG PO (05:53)
[2023-07-24] MEDS: Carbidopa/Levodopa 25/100 Tablet PO ×2 (06:03→11:23)
[2023-07-24 06:26] VITALS: BMI 31.8
[2023-07-24 06:42] LABS: Bedside Glucose 110 mg/dL (74-106)
[2023-07-24 07:22] VITALS: BP 104/66; PULSE 76; RESP 16; TEMP 36.2; O2SAT 96
[2023-07-24] MEDS: Lacosamide 100 MG Tablet PO (07:48)
[2023-07-24] MEDS: metFORMIN HCl 1,000 MG Tablet 1000 MG PO (07:48)
[2023-07-24] MEDS: Propranolol LA 60 MG Capsule 120 MG PO (07:48)
[2023-07-24] MEDS: Magnesium Chloride 64 MG Delay Rel.Tablet 128 MG PO (07:48)
[2023-07-24] MEDS: Empagliflozin 10 MG Tablet PO (07:48)
[2023-07-24] MEDS: Calcium Carbonate 500 MG Tablet PO (07:49)
[2023-07-24] MEDS: levETIRAcetam 500 MG Tablet PO (07:49)
[2023-07-24] MEDS: Pantoprazole Sodium 40 MG Tablet PO (07:49)
[2023-07-24 11:22] LABS: Bedside Glucose 136 mg/dL (74-106)
[2023-07-24] MEDS: ALPRAZolam 0.25 MG Tablet PO (11:39)
[2023-07-24 14:14] VITALS: BP 104/66; PULSE 76; RESP 16; TEMP 36.2; O2SAT 96
--- NOTE | 2023-07-24 14:15 | NURSING ---
discharged home with . discharge instructions, medications and appointments reviewed with pt and . denies questions or concerns
== END 2023-07-24 14:17 | disposition home health service (06) | DRG 560 ==
PROVIDERS: Admitting Provider Internal Medicine; Visit Provider Internal Medicine
DX: S22.41XD Multiple fractures of ribs, right side, subsequent encounter for fracture with routine healing (principal); I69.354 Hemiplegia and hemiparesis following cerebral infarction affecting left non-dominant side; E11.9 Type 2 diabetes mellitus without complications; D64.9 Anemia, unspecified; E78.5 Hyperlipidemia, unspecified; E66.9 Obesity, unspecified; G20 Parkinson's disease; G40.909 Epilepsy, unspecified, not intractable, without status epilepticus; F20.9 Schizophrenia, unspecified; I10 Essential (primary) hypertension; G47.33 Obstructive sleep apnea (adult) (pediatric); I25.10 Atherosclerotic heart disease of native coronary artery without angina pectoris; I69.320 Aphasia following cerebral infarction; W19.XXXD Unspecified fall, subsequent encounter; S06.0XAD Concussion with loss of consciousness status unknown, subsequent encounter; S42 Fracture of shoulder and upper arm; Z79.01 Long term (current) use of anticoagulants; Z79.82 Long term (current) use of aspirin; Z86.718 Personal history of other venous thrombosis and embolism; Z79.84 Long term (current) use of oral hypoglycemic drugs; Z79.899 Other long term (current) drug therapy; Z68.31 Body mass index [BMI] 31.0-31.9, adult
CPT/HCPCS: 36415; 80048; 80053; 80061; 80164; 81001; 82962; 83036; 83735; 84100; 85025; 85027; 92507; 92523; 92526; 92610; 94668; 97110; 97116; 97129; 97130; 97162; 97166; 97530; 97535; 97802; 97803

== ENCOUNTER 2023-08-09 12:00 | Outpatient (RCR) | payer MEDICARE, MEDICAID, SELFPAY ==
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
--- NOTE | 2023-08-06 10:14 | HP.SP.EVAL ---
History History Date of Eval: 07/31/23 Attending Doctor: Referring Doctor: Reason for Referral: SDH. Date of Onset of Diagnosis: 07/03/23 Previous speech therapy: Yes Results: Patient was seen while in Inpatient rehab for PT/OT/ST. Other Relevant Medical History/Diagnoses/Surgery: RICKIE CLANCY, is a 63 YO M with a past medical history of coronary artery disease, history of DVT, chronic anticoagulation with Arixtra (due to a heparin allergy), seizure disorder, schizophrenia (on olanzapine and Depakote), hypertension, hyperlipidemia, diabetes mellitus type 2, obesity, Parkinson's disease, history of TBI (from a [facility] in 2002), history of TIA, stroke in 2017 and stroke in April 2023 with L side weakness and expressive aphasia (had a fall at that time and found him laying on the driveway) and obstructive sleep apnea who presented to an ED on 07/03/23 after a fall down [address] of the head without contrast showed suspected right side combined subdural hematoma/subarachnoid hematoma with minimal hemorrhagic contusion and separate adjacent smaller right-sided subdural hematoma. There was a 1 to 2 mm rightward midline shift and a scalp hematoma. There were probable regions of gliosis secondary to remote right-sided cerebral infarcts. He had acute minimally displaced right 3rd-5th rib fractures, age-indeterminate compression deformities of T4 and T5 and probable chronic compression deformity of L1. He had an incomplete fx of the R acromion and a ND fx of the R scapular body. He was transferred to [facility] as a trauma. GCS at presentation to was 14 with 1 point off for confusion. Medications related to this diagnosis: atorvastatin 10 mg tablet 40 mg PO QHS cholesterol 01/06/14 calcium carbonate 600 mg calcium (1,500 mg) tablet (Caltrate 600) 600 mg PO DAILY@0800 supplement 01/06/14 fondaparinux 10 mg/0.8 mL subcutaneous solution syringe (Arixtra) 7.5 mg SQ DAILY Blood Thinner 01/06/14 metformin 1,000 mg tablet 1,000 mg PO BIDCM DM 01/06/14 omeprazole 20 mg capsule,delayed release 20 mg PO DAILY indijestion 01/06/14 aspirin 81 mg chewable tablet 81 mg PO DAILY@0800 Snapvine ##90 01/07/14 levetiracetam 500 mg tablet 500 mg PO BID seizures #30 TABLETS 03/15/16 acetaminophen 500 mg tablet 1,000 mg (2 x 500 mg) PO Q8 PRN pain #180 tabs 07/23/23 carbidopa 25 mg-levodopa 100 mg tablet 1 tab PO TIDAC #90 tabs 07/23/23 divalproex 500 mg tablet,extended release 24 hr 500 mg PO QHS #30 tabs 07/23/23 empagliflozin 10 mg tablet (Jardiance) 10 mg PO DAILY #30 tabs 07/23/23 glyburide 5 mg tablet 5 mg PO BREAKFAST #30 tabs 07/23/23 ipratropium bromide 42 mcg (0.06 %) nasal spray 2 spray NASAL BID #1 BOTTLE 07/23/23 lacosamide 100 mg tablet (Vimpat) 100 mg PO BID #60 tabs 07/23/23 lidocaine 5 % topical patch 1 patch topical DAILY #30 ea 07/23/23 magnesium chloride 64 mg (magnesium chloride) tablet,delayed release (Mag 64) 128 mg (2 x 64 mg) PO DAILY #30 tabs 07/23/23 olanzapine 10 mg tablet 20 mg (2 x 10 mg) PO DAILY@1800 #60 tabs 07/23/23 propranolol 60 mg capsule,24 hr,extended release 120 mg (2 x 60 mg) PO DAILY #30 caps 07/23/23 sennosides 8.6 mg-docusate sodium 50 mg tablet (Stool Softener-Stimulant Laxative) 2 tab PO BID #120 tabs 07/23/23 tramadol 50 mg tablet 50 mg PO Q6H PRN Pain Score 4-10 #20 tabs 07/23/23 Smoking Status: Never smoker Hx Smoking: No Hx Tobacco Use: No Hx Smoking Exposure: No Pain Is pain an issue with your current prescribed condition?: Yes Personal Preferred language: Yakut Patient Allergies Allergies Allergies: Allergies heparin Allergy (Verified 04/30/23 13:52) Swelling ibuprofen Allergy (Verified 04/30/23 13:52) Unknown * Pediatric & Adult patients Adult Objective Cog/Ling/Com Test Administered Ngwteclyj-Yamhbpoxno-Xsmdoudowchmj Assessment Administered: Yes Pomprabgn-Ptpcbzkztf-Elrqgigmgabab Assessment: Cognitive ? Linguistic skills were evaluated using patient/family interview, skilled observation and informal evaluation through tasks completed by the patient. Orientation Orientation: Person, Place, Day, Birthdate and Medical Diagnosis Answer Yes/No Questions Simple: WFL Complex: Mild Repetition Words: WFL Sentences: WFL Conversational Tasks Conversational Tasks: Moderate Comments Comments: Recall of a short story had 13 details for immediate recall. The patient stated that he has had recall problems since his TBI. Numerical Skills Balancing Checkbook [place]: His completes money management tasks. Organization Adding members to categories: WNL Identifying which does not belong: WNL Comments: He was able to list 7 items in a concrete category in one minute. Information Gathering Information Gathering: WNL Cause & Effect Cause & Effect: Mild Problem Solving Simple: WFL Complex: Mild Judgement & Reasoning Judgement/Reasoning: Mild Cognitive Linguistic Supervision/Saftey Awareness of deficits: Moderate Being left home alone: Severe Managing medications: Severe Managing finances: Severe Executive Function Comments Comments: Patient's manages his medications along with finances. He stated that prior to this hospitalization that he would use a motorized chair to go around town. It is unknown how much of his deficits are new as his declined to attend the evaluation with him and stated that he talks more when she is not in the room. During the evaluation he became teary but once reassured he was able to return to tasks. Objective Dysarthira/Motor Speech Intelligibility Phonemes: WNL Phrases: WNL Sentences: WNL Conversation: Mild Volume Volume: Moderate Consistency w/Multiple Repetitions Words: WNL Phrases: WNL Observation Observation of Apraxia of Speech: No Oral Groping for Placement: No Inconsistent Errors: No Awareness/Strategy Use Aware of motor speech impairment, unable to use strategies to improve intelligibility: Yes Objective Voice Date of Diagnosis Date of diagnosis: Unknown. Previous Speech Therapy (If yes, describe): No Details of therapy: Patient stated that he has not had therapy to increase his volume due to parkinson's dx. Medications Familiar with on/off effect: No Implantation Deep brain implantation (If yes, answer next question): No Objective data Objective Data: Objective data: Sound pressure level (SPL acoustic correlation of vocal loudness) was measured with a sound level meter at a distance of 40 cm from the patient's mouth. Average conversational loudness is 70-80 dB and sustained phonation duration is 15 to 20 seconds for a typical adult. Sustained Phonation Intensity (dB SPL): 54.8 Sustained Phonatin duration (seconds): 8 Is the individual stimulable to increase vocal intensity: Yes Vocal Intensity at Conversational Level (dB SPL): 55 Reference: Neuro-QoL instrument In past 7 days I had to read something several times to understand it: Sometimes (2-3 times) My thinking was slow: Often (once a day) I had to work really hard to pay attention or i would make a mistake: Often (once a day) I had trouble concentrating: Very often (several times a day) How much DIFFICULTY do you currently reading & following complex instructions (e.g. directions for new medication: Somewhat planning for & keeping appts that are not part of weekly routine: A lot managing your time to do most of your daily activities: A little learning new tasks or instructions: A lot Neuro-QOL Score Raw Score: 19 T - Score: 34.0 Radiation Oncology Patient Plan Plan Plan: Speech therapy is warranted for cognitive deficits along with decreased volume following his SDH along with dx of Parkinson's Disease. A vocal intensity based intervention approach applying LSVT principles to improve his speech intelligibility will be used. Given the progressive nature of her primary diagnosis, It is not anticipated for a full return to pre-morbid level of functioning, though will expect to achieve gains in speech intelligibility as well as maintain current level of functioning. Recommendations Treatment Warranted: Yes Treatment Warranted: Receptive/ Expressive Language, Cognition and Voice Progress Prognosis: Fair Frequency Frequency: 2x /Week Duration: 4 Weeks Visits in this POC: 8 Patient/Family Goal Patient/Family Goal: Patient wishes to be understood by all listeners. Goals that are Established Determination:: Goals will be added/modified as deemed necessary and appropriate. Therapy will be discontinued when results of re-evaluation indicate therapy is no longer needed or lack of progress has been documented. Goal #1-5 Goal #1: Patient will increase vocal loudness to reach a target sound pressure level of 70 dB PET SUPPLIES SALESPERSON with 1 cue during reading at the word and sentence level, which will help increase vocal respiratory support for functional communication. Goal #2: Patient will increase vocal loudness to reach a target sound pressure level of 65 dB PET SUPPL[employer] SALESPERSON with 1 cue during conversation for functional communication. Goal #3: Patient will complete problem solving, judgement and reasoning tasks with 80% accuracy for safety awareness on 2/3 consecutive sessions. Education Patient has Indicated that the Following Identified Educational Needs: None The Patient has indicated that they have no educational or learning abilities that may effect their care.: Yes Patient Instruction Patient Education: Diagnosis, Treatment Plan and Goals Person Taught: Patient Response to teaching: Verbalize understanding and Reinforcement needed
--- NOTE | 2023-08-06 15:36 | HP.OTEVAL ---
Patient's Visit Information Visit Information Visit Information: RICKIE CLANCY is a 63 year old M, referred to Occupational Therapy by Dr. Lacie Smith DO, with a diagnosis of SDH. Date of Evaluation: 08/06/23 Occupational Therapist: Saba Estrada, ANGELICAR/Zach, CHT Subjective Subjective: Pt fell on 07/03/23 down the stairs RESULTING IN ICH, R SDH, R SAH, R RIB FX (3-5), nondisplaced R SCAPULA FX. He was then transferred to and returned to rehab at [facility]- went home last week- Prior to the fall in the basement he was not using a cane at all- since then he has been using the quad cane. Pt reported bathed on his own sitting on the shower chair and grab bars, dressing IND retrieves clothes. Pt reports if he uses RUE when reaching forward he will fall and it will lock up. Pt is right hand dominant. Pt does have a sling but pain was too much. Pt reports he has a lift chair that he sits in at home. He has a battery operated w/c and he goes out and cruises around town- he walks around the home with a walker or a manual w/c. He does have stairs- upstairs is the bedroom and the basement is the washer/dryer. He has a son that is 22 years old that will help with laundry and his also helps. His also does all of his driving. He is able to do his bathing but his is able to help with dressing. He has a lift chair that he gets in/out of. He can get in/out of the car without help. His goals in PT are to stop the spasms in his legs down and walk a little bit further and rely less on the wheelchair. PMHx/Meds all in chart from [facility]. Per chart review uses arthritis cream for R shoulder. PLOF: , Agnes, assists with bathing and dressing. Toileting IND. Pt has lift to get onto porch. Pt enjoys sitting and watching TV. does IADL tasks. Son at home PRN. Pain R shoulder: Current Pain Intensity: 10 Pain Intensity Range: 8 and 10 Objective Objective/Observation: Pt demonstrates tremors when performing shoulder flexion and some right tremors at rest. ROM Shoulder: R 38/125 L 65/123 Elbow: R 35/125 L -25/132 Forearm: R sup* 30 pron 60* L sup/pron 60/60 Wrist: R 40/55 L 60/55 Opposition: Kapandji Scale: R 10 L 10 ROM Comments: pain in pronation R Strength Shoulder: Fet 2 (# per pressure) R 15.9/10.2 L 15.6/15.7 Elbow: Fet 2 (# per pressure) R 18/10.4 L 18.8/17.9 Toy Consultant: R 30# L 62# Lateral Pinch: R 9# L 16# Tripod Pinch: R 6# L 16# Strength Comments: Difficulty with pinching with R hand ulnar drift noted Sensation Sensation Comments: 2.83 normal sensation in bilataral hands, pt does report numbness in R hand Nine Hole Peg Right: 30.57 sec Left: 27.81 sec Comments: Right hand a little slower than left Quick DASH-Disab of Arm,Shoulder& Hand Quick DASH Score: 43.1800 Goals Goal:: Pt will demonstrate improved right shoulder flexion/extension by 2 # per pressure in RUE strength by discharge. Pt will demonstrate improved right vat operator strength to 45# or greater by discharge. Goal:: Pt will improve R shoulder flexion to 100* of right shoulder flexion for increased ability to perform ADL tasks by discharge. Pt will improve R shoulder flexion to 50* of right shoulder extension for increased ability to perform ADL tasks by discharge. Pt will demosntrate improve R supination to 60* for increased ability to perform ADL tasks by discharge. Goal:: Pt will report 5/10 pain with ADL/IADL tasks by discharge. Goal:: Pt to demo overall increased indep in ADL/IADL tasks by decreased total DASH score by 10 points by discharge. Rehabilitation General Assessment: Pt seen for OT eval for SDH. Upon evaluation pt pain concern in RUE pain. Pt is a poor historian per chart review PLOF assisting in ADL and IADL tasks though unclear of current level. Pt demonstrates decreased R shoulder ROM and strength and 10/10 pain at worst with 8/10 pain at rest and supported. Pt will benefit from skilled OT 1x a week for 4 weeks to decrease pain, increase ROM and strength by demonstration of increased ability to participate in ADL tasks. Therapist ed in OT POC, shoulder ROM, and importance of performing tasks. Pt verbalizes understanding and agreeable to OT POC. Therapy session was directly supervised and doc. approved by Saba Estrada OTR/L,CHT. Rehabilitation Potential: Fair Anticipated Interventions Anticipated Interventions: A/AAROM/PROM, Strengthening, Triggerpoint Release, Modalities, Neuro Reeducation, Education re assistive Equipment, Education re Diagnosis, Caregiver Training and Home Program Visit Plan Frequency: 1x/Week Duration: 4 Weeks General Plan: Decrease pain, return to PLOF TEXT: Thank you for the opportunity to evaluate your patient. For Medicare and Medicare HMO plans, please review the plan of care and approve it. It will need to be FAXED BACK to us at [phone] for Medicare purposes. Please let me know if there are questions or concerns regarding this plan of care. Physician Signature: Date:
--- NOTE | 2023-09-02 14:23 | HP.SP.DC ---
ST Discharge Summary Discharged: Discharge: Alex Ferrera is discharged from speech therapy as of September 02, 2023 as he did not attend any visits after his initial evaluation on 08/06/23. He cancelled or no showed. He was PT and OT as well and often no showed their visits several times a week. No therapy was completed. Therapy was recommended with the goals of increasing volume due to Parkinson?s disease as well as problem solving, judgement and reasoning tasks with 80% accuracy for safety awareness. Thank you for allowing me to participate in the care of this patient.
== END 2023-08-09 19:00 | disposition home or self-care (01) ==
LOC: PT 12:00
PROVIDERS: Referring Provider Internal Medicine; Visit Provider Internal Medicine
DX: S06.5XAD Traumatic subdural hemorrhage with loss of consciousness status unknown, subsequent encounter (principal); S22.41XD Multiple fractures of ribs, right side, subsequent encounter for fracture with routine healing; S41.031D Puncture wound without foreign body of right shoulder, subsequent encounter
CPT/HCPCS: 92523; 97110; 97116; 97162; 97166; 97530

== ENCOUNTER → 2023-11-14 | Outpatient (CLI) | payer MEDICARE, MEDICAID, SELFPAY ==
[2023-11-14 15:22] LABS: Absolute Neutrophil Count 4.5 X10^3/uL (2.0-7.7); Basophil# 0.03 X10^3/uL; Basophil% 0.4 % (0-1); Eosinophil# 0.07 X10^3/uL; Hemoglobin 14.1 g/dL (13.0-16.5); Lymphocyte % 23.4 % (19-41); Mean Corp Hgb Conc 33.6 g/dL (32-36); Mean Corpuscular Hgb 30.5 pg (27.0-32.0); Mean Corpuscular Volume 90.7 fL (80-94); Mean Platelet Vol. 11.3 fl (6.2-12.0); Monocyte# 0.66 X10^3/uL; Monocyte% 9.6 % (0-10); NRBC Flagged by Analyzer 0 % (0-5); Neutrophil # 4.46 X10^3/uL (2.7-7.7); Neutrophil % 65.3 % (47-70); Platelet Count 200 K/mm3 (150-450); RBC Distribution Width CV 12.6 % (11.6-14.6); Red Blood Count 4.63 M/mm3 (4.6-6.2); White Blood Count 6.8 K/mm3 (4.4-11.0)
[2023-11-14 16:13] LABS: Valproic Acid (Depakene) Level 61 ug/mL (50-100)
[2023-11-14 16:21] LABS: ALB/GLOB Ratio 0.9 RATIO (0.9-2.4); AST(SGOT) 11 U/L (15-37); Alanine Aminotransfer ALT/SGPT 12 U/L (16-61); Albumin, Serum 3.2 g/dL (3.2-5.0); Alkaline Phosphatase 47 U/L (45-117); Anion Gap 4 (5-15); BUN 9 mg/dL (7-18); BUN/Creat Ratio 12.7 RATIO (10-20); Calcium,Total 9.1 mg/dL (8.5-10.1); Chloride 104 mmol/L (98-107); Cholesterol 115 mg/dL (200); Creatinine, Serum 0.71 mg/dL (0.70-1.30); EST Glomerular Filtration Rate 120 mL/min (>60); Est Glom Filt Rate - Afr Amer 145 mL/min (>60); Globulin 3.5 g/dL (2.2-4.2); Glucose 129 mg/dL (74-106); High Density Lipoprotein 41 mg/dL; Magnesium 2.1 mg/dL (1.6-2.6); Potassium 3.9 mmol/L (3.5-5.1); Protein, Total 6.7 g/dL (6.4-8.2); Sodium Level 139 mmol/L (136-145)
== END | disposition home or self-care (01) ==
PROVIDERS: Referring Provider Family Medicine; Visit Provider Family Medicine
DX: G40.909 Epilepsy, unspecified, not intractable, without status epilepticus (principal); E78.5 Hyperlipidemia, unspecified; R25.1 Tremor, unspecified
CPT/HCPCS: 36415; 80053; 80164; 82465; 83718; 83735; 85025

== ENCOUNTER 2023-12-24 23:32 | Emergency (ER) | payer MEDICARE, MEDICAID, SELFPAY ==
[2023-12-24 23:33] VITALS: BP 154/88; PULSE 72; RESP 23; TEMP 36.5; O2SAT 95; BMI 30.8
--- OUTSIDE RECORDS SUMMARY | 2023-12-25 00:02 | XMS RPT_ITS | CCD ---
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 Jeison Patel Attending Unavaila Dr. Miki Guardado Primary Care Unavailable Jaylan Corbin Unavailable Unavailable Connie Sawant Unavailable Unavailable Miki Fernandez Unavailable [phone] Miki Fernandez Primary Care Unavailable Jonathan Seo Admitting Unavailable Patient, Unavailable Referring Unavailable MD CONNIE SAWANT Attending Unava ilable Allergies Allergy Classification Reported Allergen(s) Allergy Type Date of Onset Reaction(s) Facility (2 sources) heparin Drug Allergy Unknown [facility] (2 sources) Ibuprofen Drug Allergy Unknown [facility] Medications Current Medications Medication Drug Class(es) Dates Sig (Normalized) Sig (Original) acetaminophen 325 mg oral tablet (1 source) Start: 3 take 2 tablets by mouth every four hours as needed acetaminophen 325 mg oral tablet ; 2 tab(s) orally every 4 hours, As needed, Pain - Mild (1-3) Quantity: 0 Refills: 0 Ordered: 09-Jul-2023 Vibha Perry Start: 09-Jul-2023 Generic Substitution Allowed atorvastatin 80 mg oral tablet (2 sources) HMG-CoA Reductase Inhibitor take 0.5 tablet by mouth once daily atorvastatin 80 mg oral tablet ; 0.5 tab(s) orally once a day Quantity: 0 Refills: 0 Ordered: 03-Jul-2023 Patty Murillo Generic Substitution Allowed calcium carbonate 650 mg oral tablet (2 sources) take 1 tablet by mouth once daily calcium carbonate 650 mg oral tablet ; 1 tab(s) orally once a day Quantity: 0 Refills: 0 Ordered: 03-Jul-2023 Patty Murillo Generic Substitution Allowed Carbidopa (1 source) Aromatic Amino Acid Decarboxylation Inhibitor take 100 mg by mouth four times daily carbidopa ; 100 milligram(s) orally 4 times a day Quantity: 0 Refills: 0 Ordered: 03-Jul-2023 Patty Murillo Generic Substitution Allowed carbidopa 25 mg / levodopa 100 mg oral tablet (1 source) Aromatic Amino Acid Decarboxylation Inhibitor, Aromatic Amino Acid take 1 tablet by mouth four times daily carbidopa-levodopa 25 mg-100 mg oral tablet ; 1 tab(s) orally 4 times a day Quantity: 0 Refills: 0 Ordered: 04-Jul-2023 Ignacia Call Generic Substitution Allowed chlorpheniramine maleate 4 mg oral tablet (2 sources) Histamine-1 Receptor Antagonist take 1 tablet by mouth twice daily as needed chlorpheniramine 4 mg oral tablet ; 1 tab(s) orally 2 times a day, As Needed Quantity: 0 Refills: 0 Ordered: 03-Jul-2023 Patty Murillo Generic Substitution Allowed 0.6 ml fondaparinux sodium 12.5 mg/ml prefilled syringe (1 source) Factor Xa Inhibitor Start: Arixtra 7.5 mg/0.6 mL subcutaneous solution ; subcutaneous every 24 hours Quantity: 0 Refills: 0 Ordered: 09-Jul-2023 Stephen Perryed Start: 16-Jul-2023 Generic Substitution Allowed Problems Problem Classification Problem Date Documented Da te Episodic/Chronic Acute cerebrovascular disease (4 sources) Hematoma of subdural space of neuraxis; Translations: [Subdural hemorrhage] 07-03-2023 Chronic Acute myocardial infarction (1 source) Acute ST segment elevation myocardial infarction 07-05-2023 Chronic Results Test Name Value Interpretation Reference Range Facil ity Vital Signs Date Time Vital Sign Value Performing Clinician Facility 07-10-2023 09:37-0400 Body temperature 97.88 [degF] Miki Fernandez Other Phone: [facility] 07-10-2023 09:37-0400 Diastolic blood pressure 73 mm[Hg] Miki Fernandez Other Phone: [facility] 07-10-2023 09:37-0400 Heart rate 75 /min Miki Fernandez Other Phone: [facility] 07-10-2023 09:37-0400 Respiratory rate 18 /min Miki Fernandez Other Phone: [facility] 07-10-2023 09:37-0400 SaO2% (BldA) [Mass fraction] 92 % Miki Fernandez Other Phone: [facility] 07-10-2023 09:37-0400 Systolic blood pressure 113 mm[Hg] Miki Fernandez Other Phone: [facility] 07-03-2023 20:30-0400 Diastolic blood pressure 91 mm[Hg] Miki Fernandez Other Phone: [facility] 07-03-2023 20:30-0400 Heart rate 80 /min Miki Fernandez Other Phone: [facility] 07-03-2023 20:30-0400 Respiratory rate 19 /min Miki Fernandez Other Phone: [facility] 07-03-2023 20:30-0400 SaO2% (BldA) [Mass fraction] 95 % Miki Fernandez Other Phone: [facility] 07-03-2023 20:30-0400 Systolic blood pressure 163 mm[Hg] Miki Fernanedz Other Phone: [facility] 07-03-2023 16:55-0400 Body temperature 98.06 [degF] Miki Fernandez Other Phone: [facility] 07-03-2023 16:55-0400 Body weight 75 kg Miki Fernandez Other Phone: [facility] Encounters Encounter Date Encounter Type Care Provider Facility Start: 08-10-2023 AUDIT Miki vallecillo Work Phone: [facility] Work Phone: Start: 07-05-2023 End: 07-10-2023 Evaluation and management of inpatient Dr. Miki Fernandez Facility:[facility] Start: 07-03-2023 End: 07-10-2023 Evaluation and management of inpatient Connie Sawant [facility] [id number] Rm [id number] Start: 07-03-2023 End: 07-03-2023 Emergency department patient visit Jeison Patel [facility] Emergency Procedures Date Procedure Procedure Detail Performing Clinician Start: 07-05-[address] Sundeep Fernandez Plan of Treatment Date Care Activity Detail Author Start: 07-04-2023 End: 07-04-2024 [facility] Immunizations Immunization Date Immunization Notes Care Provider Peter britton 11-23-2021 Moderna COVID-19 Vac cine 100 MCG/0.5ML Intramuscular Suspension Miki Fernandez Work Phone: [facility] Work Phone: 03-23-2021 Moderna COVID-19 Vac cine 100 MCG/0.5ML Intramuscular Suspension Miki Fernandez Work Phone: [facility] Work Phone: 02-23-2021 Moderna COVID-19 Vac cine 100 MCG/0.5ML Intramuscular Suspension Miki Fernandez Work Phone: [facility] Work Phone: Payers Date Payer Category Payer Unknown [id number] 1960 Unknown [id number] Medicaid [id number] Private Health Insurance [id number] Unknown Social History Date Type Detail Facility [facility] Tobacco smoking consumption unknown [facility] Functional Status Date Assessment Result Facility Functional observable [facility] [place] Mental Status Date Assessment Result Facility 07-06-2023 Cognitive functions 4-Aug-20 2322:58 [facility] Reason for referral (narrative) 07-10-2023 Note Date & Type Note Facility 07-10-2023 Reason for referral (narrative) Reason for Referral: Pt. presented following a fall down 3 steps. Pt. found to have Right SDH, SAH, and IPH with L 2-3mm midline shift; Right scapula fracture; Right 3-5 rib fractures; Age indeterminant T4/T5 compression fracture [facility] Discharge summary note 07-09-2023 Note Date & Type Note Facility 07-09-2023 Note Send Summary: Discharge Summary Providers: Provider RoleProvider Name ReferringCorrect Info, Needed Jaylan Mitchell Victor D AttendingMcQuay, Nathaniel Note Recipients: Correct Info, Amanda, Miki Kyle MD - [id number] [] CONNIE SAWANT Discharge: Summary: Admission Date: .03-Jul-2023 20:27:00 Discharge Date: 09-Jul-2023 Attending Physician at Discharge: Connie Sawant Admission Reason: s/p fall with ICH, rib fx, scapula fx(1) Final Discharge Diagnoses: SDH, SAH, IPH, rib fx, scapula fx Procedures: none Condition at Discharge: Satisfactory Disposition at Discharge: Residential Facility (SNF) Vital Signs: T PRBPMAPSpO2 [id number]/302655% Date/Time07/09 11:218 11:218 11:218 11:2188 5:308/8 11:21 Range(36.4C - 37.4C ) (50 - 76 ) (18 - 18 ) (107 - 175 )/ (71 - 86 ) (87 - 914 ) (91% - 98% ) Highest temp of 37.4 C was recorded at 07/09 11:21 Date: Weight/Scale Type:Height: 03-Jul-2023 20:3676 kg 160 cm Physical Exam: Constitutional: Well developed, awake/alert, no distress, alert and cooperative Eyes: EOMI, clear sclera ENMT: mucous membranes moist Head/Neck: Neck supple, trachea midline Respiratory/Thorax: non labored breathing RA Cardiovascular: no edema on hands or feet Psychological: Appropriate mood and behavior Skin: Warm and dry Hospital Course: Rickie Ferrera is a 63-year-old male with PMHx of CAD, T2DM, DVT, schizophrenia, seizures, TIA who was transferred from an outside facility for trauma eval after unwitnessed fall down 3 steps at home. Imaging at OSH found a SDH/SAH and rib 3-[address]. [address] arrival to [facility] ED pt denies any changes in neurologic functioning however was having some right-sided back pain. Pt on arixtra at home, last dose >48hrs prior to fall. Additional imaging showed SDH, SAH, IPH with L 2-3mm midline shift, R scapular fx, R 3-5 rib fx, and an age-indeterminant T4/T5 compression fx. Neurosurgery consulted, recommended Keppra ppx x7 days, discontinued T-spine precautions. Stability rCTH stable, restart Fondaparinux 7.5mg post bleed day 14. Ortho consulted for R scapula fx, no acute surgical intervention per ortho, recommended sling, NWB MELIA, and outpatient follow up. Admitted to [facility] for pulmonary hygiene and q4hr neuro checks. Neuro-epilepsy consulted for recs on anti-seizure regimen, recommended lacosamide level then start 150mg lacosamide BID till 07/11 then reduce the dose to 100mg BID. follow up with Neuro-epilepsy service at the [place]. obtaining routine EEG and EKG to check MA interval. Patient was evaluated by PT/OT on 07/05 and recommended mod intensity therapy upon discharge. Discharge Information: and Continuing Care: Lab Results - Pending: None Radiology Results - Pending: None Discharge Instructions: Activity: activity as tolerated. May shower.. May not drive. Weight-bearing Instructions: no weight-bearing right arm. Nutrition/Diet: resume normal diet Additional Orders: Additional Instructions: Neurology/ Epilepsy recommendations : Continue lacosamide 150 mg BID for 7 days (end date 07/11) then back to 100 mg BID. Patient can follow up with his neurologist at [place]. Neurosurgery recommendations : -no follow up needed -continuo DVT ppx with (Fondaparinux 2.5mg every 24 hours) -restart therapeutic (Fondaparinux 7.5mg every 24 hours) post bleed day 14, stop DVT ppx at that point. Orthopaedic recommendations : - No acute orthopaedic interventions - Weight bearing status: NWB RUE sling (provided) - F/U with Dr. Corbin 2weeks after discharged. Call [phone] to schedule appointment. Rehab Services: Occupational Therapy Orders: [facility] ([facility]) Physical Therapy Orders: Eval and Treat ([facility]) Care Recommendation: I recommend that INPATIENT care is required at:: Skilled Estimated Stay: Convalescent stay < 30 days Follow Up Appointments: Follow-Up Appointment 01: Physician/Dept/Service: Dr. Corbin/ Orthopaedic Reason for Referral: f/u scapular body fx Call to Schedule in: 2 weeks Follow-Up Appointment 02: Physician/Dept/Service: Neurology/ Epilepsy/ [facility] Reason for Referral: f/u epilepsy Call to Schedule in: 2 weeks Discharge Medications: Home Medication atorvastatin 80 mg oral tablet - 0.5 tab(s) orally once a day calcium carbonate 650 mg oral tablet - 1 tab(s) orally once a day magnesium oxide 420 mg oral tablet - 1 tab(s) orally once a day carbidopa-levodopa 25 mg-100 mg oral tablet - 1 tab(s) orally 4 times a day ipratropium 21 mcg/inh (0.03%) nasal spray - 2 spray(s) nasal 2 times a day ketoconazole 2% topical shampoo - Apply topically to affected area (scalp) 2-3 times awwk propranolol 160 mg oral capsule, extended release - 1 cap(s) orally once a day metFORMIN 1000 mg oral tablet - 1 tab(s) orally 2 ti (more content not included)... [facility] Clinical Note 07-04-2023 Note Date & Type Note Facility 07-04-2023 Note Clinical Note - Phar jose l v2: Education: Document TopicMedication Education MedicationMeds to Beds: Patient declines Meds to Beds service at discharge. Sources used to confirm home medication list: [facility] pharmacy (spoke with Serena Dyson) Additional comments: Per pharmacist, they had received another call earlier requesting medication list, and OMR reflected this. Med list re-verified via phone call with [place] pharmacist. Medication reconciliation complete Please reach out via [employer] for questions, or if no response call [phone] or [facility] Ignacia Call, PharmD, Transitions of Care Pharmacist [facility] Is This Intervention Medication Reconciliation Relatedyes Time [id number] - 60 minutes [facility] Additional NotesHome Medications Review Status for Reconciliation: Complete Med Status: Patient Currently Takes Medications Drug Name: propranolol 160 mg oral capsule, extended release Instructions: 1 cap(s) orally once a day Drug Name: metFORMIN 1000 mg oral tablet Instructions: 1 tab(s) orally 2 times a day Drug Name: pantoprazole 40 mg oral delayed release tablet Instructions: 1 tab(s) orally 2 times a day Drug Name: divalproex sodium 250 mg oral tablet, extended release Instructions: 1 tab(s) orally once a day (at bedtime) Drug Name: glyBURIDE 5 mg oral tablet Instructions: 2 tab(s) orally 2 times a day Drug Name: OLANZapine 20 mg oral tablet Instructions: 1 tab(s) orally once a day (at bedtime) Drug Name: chlorpheniramine 4 mg oral tablet Instructions: 1 tab(s) orally 2 times a day, As Needed Drug Name: atorvastatin 80 mg oral tablet Instructions: 0.5 tab(s) orally once a day Drug Name: calcium carbonate 650 mg oral tablet Instructions: 1 tab(s) orally once a day Drug Name: magnesium oxide 420 mg oral tablet Instructions: 1 tab(s) orally once a day Drug Name: lacosamide 150 mg oral tablet Instructions: 1 tab(s) orally 2 times a day Drug Name: carbidopa-levodopa 25 mg-100 mg oral tablet Instructions: 1 tab(s) orally 4 times a day Drug Name: ipratropium 21 mcg/inh (0.03%) nasal spray Instructions: 2 spray(s) nasal 2 times a day Drug Name: ketoconazole 2% topical shampoo Instructions: Apply topically to affected area (scalp) 2-3 times awwk Drug Name: Arixtra 7.5 mg/0.6 mL subcutaneous solution Instructions: subcutaneous every 24 hours History [facility] interview Allergy: Allergies Summary Allergy Allergen: heparin Type: Drug Reaction: Unknown Allergen: Motrin Type: Drug Reaction: Unknown Electronic Signatures: Ignacia Call ([facility]) (Signed 04-Jul-2023 02:39) Authored: Education, Allergy Last Updated: 04-Jul-2023 02:39 by Ignacia Call ([facility]) [facility] Evaluation note <item> Note Date & Type Note Facility Evaluation note Psychological: Appro priate mood and behaviorCardiovascular: no edema on hands or feetRespiratory/Thorax: non labored breathing RAHead/Neck: Neck supple, trachea midlineENMT: mucous membranes moistEyes: EOMI, clear scleraSkin: Warm and dryConstitutional: Well developed, awake/alert, no distress, alert and cooperative [facility] Discharge instructions <item><item><item><item><item><item> Note Date & Type Note Facility Hospital Discharge instructions Activity:activity as tolerated. May shower. May not drive. Weight-bearing Instructions: no weight-bearing right arm.Additional Orders:Additional Instructions: Neurology/ Epilepsy recommendations :Continue lacosamide 150 mg BID for 7 days (end date 07/11) then back to 100 mg BID.Patient can follow up with his neurologist at [place].Neurosurgery recommendations :-no follow up needed-continuo DVT ppx with (Fondaparinux 2.5mg every 24 hours) -restart therapeutic (Fondaparinux 7.5mg every 24 hours) post bleed day 14, stop DVT ppx at that point.Orthopaedic recommendations :- No acute orthopaedic interventions- Weight bearing status: NWB MELIA sling (provided)- F/U with Dr. Corbin 2weeks after discharged. Call [phone] to schedule appointment.Care Recommendation:I recommend that INPATIENT care is required at: SkilledEstimated Stay: Convalescent stay < 30 daysPrognosis: GoodRehab Potential/Function: ImproveTherapy Orders:Occupational Therapy Orders: [facility] ([facility])Physical Therapy Orders: Eval and Treat ([facility])Follow Up Appointment 1:Physician/Dept/Service: Dr. Corbin/ Jeff for Referral: f/u scapular body fxCall to Schedule in: 2 weeksPhone Number: [phone] Up Appointment 2:Physician/Dept/Service: Neurology/ Epilepsy/ VAReason for Referral: f/u epilepsy [facility] Summary Purpose Family History No Family History Records FoundNo Family History Records Found Advance Directives No Advanced Directives Records FoundNo Advanced Directives Records Found Additional Source Comments <item><item> Privacy Markings (unrecogniz ed section and content) Section Author: Michelle Alvarez PROHIBITION ON REDISCLOSURE OF CONFIDENTIAL INFORMATION This notice accompanies a disclosure of information concerning a client made to you with the consent of such client. Section Author: Michelle Alvarez PROHIBITION ON REDISCLOSURE OF CONFIDENTIAL INFORMATION This notice accompanies a disclosure of information concerning a client made to you with the consent of such client. (unrecognized sect ion and content) No Status Records FoundNo Status Records Found INFORMATION SOURCE (unrecogn ized section and content) DATE CREATED AUTHOR AUTHOR'S ORGANIZ ATION 08/24/2023 [facility] FOR RECORDS PERTAINING TO PATIENTS WHO ARE OR HAVE BEEN ENROLLED IN A CHEMICAL DEPENDENCY/SUBSTANCEABUSE PROGRAM, SOME INFORMATION MAY BE OMITTED. This clinical summary was aggregated from multiple sources. Caution should be exercised in using it in the provision of clinical care. This summary normalizes information from multiple sources, and as a consequence, information in this document may materially change the coding, format and clinical context of patient data. In addition, data may be omitted in some cases. CLINICAL DECISIONS SHOULD BE BASED ON THE PRIMARY CLINICAL RECORDS. [employer] provides no warranty or guarantee of the accuracy or completeness of information in this document.
[2023-12-25 00:06] LABS: Bedside Glucose 161 mg/dL (74-106)
--- NOTE | 2023-12-25 00:14 | EDS_ITS ---
HPI History of Present Illness Chief Complaint: Neuro S/Sx Informant: patient Onset/Context/Timing Onset: Weeks (1.5) Context: Sudden Onset Timing: Continuous Quality: Numbness Location: Left arm Worsened by: Nothing Relieved by: Nothing Narrative Narrative: Patient presents with numbness in his left arm that began a week and a half ago. Patient states he saw his physician at the [facility] in [place] yesterday. Patient states he was told he had another stroke. Patient states he has had 6 prior strokes and this is the seventh stroke that he has had. Patient states that he was supposed to be transferred to [facility] for further stroke workup. Patient did not want to go to the [facility] for further stroke workup. Patient states he was told that he needed to come to the emergency department tonight in order to be released. Patient states nothing makes his numbness better and nothing makes it worse. Patient denies any weakness. Patient denies any visual changes. Patient denies any headaches. [facility] Medical History CAD (coronary artery disease) Chronic anticoagulation DM2 (diabetes mellitus, type 2) DVT (deep venous thrombosis) Dyslipidemia History of CVA (cerebrovascular accident) History of vertebral compression fracture Left hemiparesis Obesity KATHRINE (obstructive sleep apnea) Parkinsons disease Schizophrenia Seizure disorder Slurred speech TIA (transient ischemic attack) Traumatic brain injury Home Medications atorvastatin 10 mg tablet 40 mg PO QHS cholesterol 01/06/14 [History Last Taken 01/05/14] calcium carbonate 600 mg calcium (1,500 mg) tablet (Caltrate 600) 600 mg PO DAILY@0800 supplement 01/06/14 [History Last Taken 01/05/14] fondaparinux 10 mg/0.8 mL subcutaneous solution syringe (Arixtra) 7.5 mg SQ DAILY Blood Thinner 01/06/14 [History Last Taken Unknown] metformin 1,000 mg tablet 1,000 mg PO BIDCM DM 01/06/14 [History Last Taken 01/05/14] omeprazole 20 mg capsule,delayed release 20 mg PO DAILY indijestion 01/06/14 [History Last Taken 01/05/14] aspirin 81 mg chewable tablet 81 mg PO DAILY@0800 [place] ##90 01/07/14 [Rx Last Taken Unknown] levetiracetam 500 mg tablet 500 mg PO BID seizures #30 TABLETS 03/15/16 [Rx Last Taken Unknown] acetaminophen 500 mg tablet 1,000 mg (2 x 500 mg) PO Q8 PRN pain #180 tabs 07/03 01/24 [Rx Last Taken Unknown] carbidopa 25 mg-levodopa 100 mg tablet 1 tab PO TIDAC #90 tabs 07/23/23 [Rx Last Taken Unknown] divalproex 500 mg tablet,extended release 24 hr 500 mg PO QHS #30 tabs 07/23/23 [Rx Last Taken Unknown] empagliflozin 10 mg tablet (Jardiance) 10 mg PO DAILY #30 tabs 07/23/23 [Rx Last Taken Unknown] glyburide 5 mg tablet 5 mg PO BREAKFAST #30 tabs 07/23/23 [Rx Last Taken Un known] ipratropium bromide 42 mcg (0.06 %) nasal spray 2 spray NASAL BID #1 BOTTLE 07/23/23 [Rx Last Taken Unknown] lacosamide 100 mg tablet (Vimpat) 100 mg PO BID #60 tabs 07/23/23 [Rx Last Taken Unknown] lidocaine 5 % topical patch 1 patch topical DAILY #30 ea 07/23/23 [Rx Last Taken Unknown] magnesium chloride 64 mg (magnesium chloride) tablet,delayed release (Mag 64) 128 mg (2 x 64 mg) PO DAILY #30 tabs 07/23/23 [Rx Last Taken Unknown] olanzapine 10 mg tablet 20 mg (2 x 10 mg) PO DAILY@1800 #60 tabs 07/23/23 [Rx Last Taken Unknown] propranolol 60 mg capsule,24 hr,extended release 120 mg (2 x 60 mg) PO DAILY #30 caps 07/23/23 [Rx Last Taken Unknown] sennosides 8.6 mg-docusate sodium 50 mg tablet (Stool Softener-Stimulant Laxative) 2 tab PO BID #120 tabs 07/23/23 [Rx Last Taken Unknown] tramadol 50 mg tablet 50 mg PO Q6H PRN Pain Score 4-10 #20 tabs 07/23/23 [Rx Last Taken Unknown] Allergy/AdvReac Type Severity Reaction Status Date / Time heparin Allergy Swelling Verified 04/30/23 13:52 ibuprofen Allergy Unknown Verified 04/30/23 13:52 Family History Mother Cancer Diabetes Father Cancer Diabetes Surgical History H/O brain surgery History of percutaneous coronary intervention Social History household members: spouse Smoking Status: Never smoker alcohol intake: never substance use type: does not use ROS ROS ED Neurologic Neurologic: Reports paresthesias LUE EXAM Physical Exam Const Vital Signs: 12/24/23 23:33 Temperature 97.7 F L Temperature Source Temporal Pulse Rate 72 Respiratory Rate 23 H Blood Pressure 154/88 H Blood Pressure Mean 110 Pulse Ox 95 Oxygen Delivery Method Room Air Positive well nourished and well developed General Appearance ED: well developed and NAD HEENT Reports moist mucous membranes Neck supple and no JVD Chest Wall inspection of chest normal and palpation of chest normal Resp normal respiratory effort and clear to auscultation bilaterally Cardio regular rate and regular rhythm GI non-tender and non-distended Palpation: soft Extremity normal to inspection General Extremety ED: Negative for edema or tenderness General Extremity: Negative for edema Neuro oriented x3, CN's II-XII intact bilaterally and no sensory deficits noted Sensorium / Orientation: alert Motor Exam: strength 5/5 throughout Psych mental status grossly normal MDM MDM MDM Narrative Medical decision making narrative: Differential diagnosis includes stroke, hyperglycemia, hypoglycemia, paresthesias, cardiac dysrhythmia, cardiac ischemia, intracranial bleeding, coagulopathy, and anxiety. CT scan of the brain will be obtained to assess for stroke and intracranial bleeding. EKG will be obtained to assess for cardiac dysrhythmia and cardiac ischemia. Chest x-ray will be obtained to assess for cardiomegaly and widened mediastinum. CBC will be obtained to assess for leukocytosis and anemia. Basic metabolic profile will be obtained to assess for electrolyte abnormality and renal function. High-sensitivity troponin will be obtained to assess for cardiac ischemia. PT was INR and PTT will be obtained to assess for coagulopathy. Lab Data Attestation: I reviewed the patient's lab results. Lab results narrative: CBC was reviewed and was within normal limits. Basic metabolic profile was reviewed and was within normal limits. PT was INR and PTT were reviewed and were within normal limits. High-sensitivity troponin was reviewed and was normal. Labs: Laboratory Results - last 24 hr 12/24/23 12/25/23 23:48 00:03 WBC 5.0 RBC 4.42 L Hgb 13.5 Hct 39.4 L MCV 89.1 MCH 30.5 MCHC 34.3 RDW Std Deviation 39.3 RDW Coeff of Xavier 12.1 Plt Count 199 MPV 11.7 Immature Gran % (Auto) 0.200 Neut % (Auto) 52.3 Lymph % (Auto) 34.1 [place] % (Auto) 10.8 H Eos % (Auto) 1.6 Baso % (Auto) 1.0 Absolute Neuts (auto) 2.6 Absolute Lymphs (auto) 1.70 Nucleated RBC % 0 PT 12.9 INR 1.0 APTT 28.2 Sodium 140 Potassium 3.7 Chloride 106 Carbon Dioxide 31.0 Anion Gap 3 L BUN 12 Creatinine 0.79 Estim Creat Clear Calc 88.00 Est GFR (MDRD) Af Amer 128 Est GFR (MDRD) Non-Af 106 BUN/Creatinine Ratio 15.2 Glucose 183 H Calcium 8.9 Troponin I High Sens 7 POC Glucose 161 H Radiography Diagnostic Testing: Clinical Impression(s) from Imaging Studies Brain CT 12/25/23 00:19 IMPRESSION: 1. Chronic involutional changes of the brain. 2. No CT evidence for mass or acute intracranial hemorrhage. Electronically Signed: Mana Segovia MD at 1:20 EST , Chest X-Ray 12/25/23 00:20 IMPRESSION: No radiographic evidence of acute cardiopulmonary disease. Electronically Signed: Mana Segovia MD at 1:08 EST , PA and lateral chest x-ray was obtained. There are 2 views. On my independent interpretation, lung wilson are clear. There is normal cardiac silhouette. Bony thorax is normal. There is no acute process noted. Radiologist also interpreted the x-ray and agrees. CT scan of the brain was obtained. There is no acute intracranial abnormality. There are chronic involutional changes noted. This was interpreted by the radiologist and was also independently reviewed by myself. EKG Initial EKG: Attestation: I personally reviewed and interpreted this EKG as follows: Interpretation: Sinus Bradycardia (55) Comments: EKG was obtained. On my independent interpretation, shows sinus bradycardia with a rate of 55. FL interval was normal at 134 ms. QRS interval is normal at 78 ms. QTc interval was normal at 399 ms. Herrick was normal. There are no acute ST or T wave changes noted. Prior EKG tracings: available for review Prior: Unchanged (04/20/2022) Treatment and Re-Evaluation :: Patient has a NIH score of 0. I do not feel the patient needs to be admitted for further workup since his symptoms began a week and a half ago. Patient was instructed to follow-up with his primary care physician in 3 to 5 days. Patient was instructed to return if worse in any way. Patient understood and was agreeable with the plan. All questions were answered. Discharge Plan Triage Chief Complaint: Neuro S/Sx ED Provider: Samy Velazquez Dx/Rx/DC Orders Clinical Impression: Paresthesias, CAD (coronary artery disease), DM2 (diabetes mellitus, type 2) Instructions: ED Paraesthesias Prescriptions: No Action atorvastatin 10 MG tablet 40 mg PO QHS Patient Comments: CHOLESTEROL calcium carbonate [Caltrate 600] 600 MG tablet 600 mg PO DAILY@0800 Patient Comments: CALCIUM metformin 1,000 MG tablet 1,000 mg PO BIDCM Patient Comments: BLOOD SUGAR omeprazole 20 MG capsule 20 mg PO DAILY Patient Comments: ACID REFLUX fondaparinux [Arixtra] 10 MG/0.8 ML syringe 7.5 mg SQ DAILY Patient Comments: BLOOD THINNER aspirin 81 MG tablet,chewable 81 mg PO DAILY@0800 Qty: 90 0RF Hold Instructions: Hold this medication until the neurologist feels it is safe to restart. Patient Comments: [facility] levetiracetam 500 MG tablet 500 mg PO BID Qty: 30 0RF glyburide 5 mg Tablet 5 mg PO BREAKFAST Qty: 30 0RF acetaminophen 500 mg Tablet 1,000 mg PO Q8 PRN (Reason: pain) Qty: 180 0RF divalproex 500 mg Tablet Extended Release 24 Hr 500 mg PO QHS Qty: 30 0RF lidocaine 5 % Adhesive Patch,Medicated 1 patch topical DAILY Qty: 30 0RF Protocol: *Topical Application Instructions APPLICATION INSTRUCTIONS: ribs Rx Instructions: Apply to the R shoulder in the AM and remove at bedtime ipratropium bromide 42 mcg (0.06 %) [place],Non-Aerosol 2 spray NASAL BID Qty: 1 0RF Rx Instructions: For runny or stuffy nose carbidopa-levodopa 25-100 mg Tablet 1 tab PO TIDAC Qty: 90 0RF lacosamide [Vimpat] 100 mg Tablet 100 mg PO BID Qty: 60 0RF Jardiance 10 mg Tablet 10 mg PO DAILY Qty: 30 0RF propranolol 60 mg Capsule,Extended Release 24 Hr 120 mg PO DAILY Qty: 30 0RF Rx Instructions: For TBI sennosides-docusate sodium [Stool Softener-Stimulant Laxat] 8.6-50 mg Tablet 2 tab PO BID Qty: 120 0RF olanzapine 10 mg Tablet 20 mg PO DAILY@1800 Qty: 60 0RF Rx Instructions: 2 tabs at bedtime tramadol 50 mg Tablet 50 mg PO Q6H PRN (Reason: Pain Score 4-10) Qty: 20 0RF Rx Instructions: Try Tylenol first and if the pain is not relieved give Tramadol Mag 64 64 mg Tablet,Delayed Release (Dr/Ec) 128 mg PO DAILY Qty: 30 0RF [facility] [Primary [facility] Provider[facility] - 3-5 Days Disposition Disposition: Home, Self Care
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
--- NOTE | 2023-12-25 00:20 | RAD_ITS ---
STUDY: X-RAY CHEST REASON FOR EXAM: Male, 63 years old patient with coronary artery disease. TECHNIQUE: PA and lateral views of the chest. COMPARISON: April 20, 2022. FINDINGS: Cardiac monitoring leads are present. The lungs are clear and under expanded. There is no demonstrated pleural abnormality. Normal size heart. Normal mediastinum and terry. Normal visualized pulmonary arteries. Normal visualized aortic arch and descending thoracic aorta. There is demineralization of the osseous structures. There is moderate compression fracture of what may represent L1. Inferior vena cava filter is visible. There is no demonstrated abnormality of the visualized soft tissue structures of the upper abdomen. RAD/Chest PA and Lateral IMPRESSION: No radiographic evidence of acute cardiopulmonary disease. Electronically Signed: Mana Segovia MD at 1:08 EST ,
[2023-12-25 00:53] LABS: Absolute Neutrophil Count 2.6 X10^3/uL (2.0-7.7); Basophil# 0.05 X10^3/uL; Eosinophil# 0.08 X10^3/uL; Eosinophils% 1.6 % (0-5); Hematocrit 39.4 % (40-54); Hemoglobin 13.5 g/dL (13.0-16.5); Lymphocyte % 34.1 % (19-41); Mean Corp Hgb Conc 34.3 g/dL (32-36); Mean Corpuscular Hgb 30.5 pg (27.0-32.0); Mean Corpuscular Volume 89.1 fL (80-94); Mean Platelet Vol. 11.7 fl (6.2-12.0); Monocyte# 0.54 X10^3/uL; Monocyte% 10.8 % (0-10); NRBC Flagged by Analyzer 0 % (0-5); Neutrophil # 2.61 X10^3/uL (2.7-7.7); Neutrophil % 52.3 % (47-70); Platelet Count 199 K/mm3 (150-450); RBC Distribution Width CV 12.1 % (11.6-14.6); RBC Distribution Width SD 39.3 fl (35.1-43.9); Red Blood Count 4.42 M/mm3 (4.6-6.2)
[2023-12-25 01:03] LABS: Partial Thromboplast Time 28.2 Seconds (24.1-36.2)
[2023-12-25 01:08] LABS: Prothrombin Time (Protime)PT. 12.9 SECONDS (11.7-14.9)
[2023-12-25 01:11] LABS: Anion Gap 3 (5-15); BUN 12 mg/dL (7-18); BUN/Creat Ratio 15.2 RATIO (10-20); Calcium,Total 8.9 mg/dL (8.5-10.1); Chloride 106 mmol/L (98-107); Creatinine, Serum 0.79 mg/dL (0.70-1.30); EST Glomerular Filtration Rate 106 mL/min (>60); Est Glom Filt Rate - Afr Amer 128 mL/min (>60); Glucose 183 mg/dL (74-106); Potassium 3.7 mmol/L (3.5-5.1); Sodium Level 140 mmol/L (136-145); Troponin-I HS 7 pg/mL (3.0-78.0)
[2023-12-25 01:42] VITALS: BP 144/96; PULSE 59; RESP 22; O2SAT 96
== END 2023-12-25 01:48 | disposition home or self-care (01) ==
PROVIDERS: Emergency Provider Emergency Medicine; Visit Provider Emergency Medicine
DX: R20.2 Paresthesia of skin (principal); E11.9 Type 2 diabetes mellitus without complications; I25.10 Atherosclerotic heart disease of native coronary artery without angina pectoris; G47.33 Obstructive sleep apnea (adult) (pediatric); Z86.73 Personal history of transient ischemic attack (TIA), and cerebral infarction without residual deficits
CPT/HCPCS: 70450; 71046; 80048; 82962; 84484; 85025; 85610; 85730; 93005; 99283; A4216

== ENCOUNTER 2024-04-07 11:26 | Emergency (ER) | payer OTHER, SELFPAY ==
[2024-04-07 11:27] VITALS: BP 158/85; PULSE 52; RESP 14; TEMP 36.3; O2SAT 99
--- NOTE | 2024-04-07 11:42 | EKG12_ITS ---
Test Reason : NUMBNESS Blood Pressure : / mmHG Vent. Rate : 053 BPM Atrial Rate : 053 BPM P-R Int : 152 ms QRS Dur : 082 ms QT Int : 414 ms P-R-T Axes : 027 021 -06 degrees QTc Int : 388 ms Sinus bradycardia Minimal voltage criteria for LVH, may be normal variant ( R in aVL ) Nonspecific T wave abnormality Abnormal ECG Confirmed by ALYSON HACKETT, TIM ([id number]), news assignment editor DARRYL MERCADO ([id number]) on 04/09/2024 11:25:05 AM Referred By: Confirmed By:TIM SHIELDS MD
--- NOTE | 2024-04-07 12:03 | RAD_ITS ---
STUDY: X-RAY - CERVICAL SPINE REASON FOR EXAM: Male, 64 years old. Neck pain. TECHNIQUE: 3 view(s) of the cervical spine were obtained. COMPARISON: None FINDINGS: There is no evidence of fracture or dislocation in the cervical spine. The dens is intact. The vertebral body heights and disc spaces are well-maintained. There are no significant degenerative changes. The prevertebral soft tissues are unremarkable. There is no radiodense foreign body. RAD/Cerv Spine 2 or 3 Views IMPRESSION: No fracture or dislocation in the cervical spine. Electronically Signed: Esau Ritchie MD at 12:47 EDT ,
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
[2024-04-07] MEDS: Oxycodone/Apap 5/325 Tablet PO (12:18)
[2024-04-07 12:22] VITALS: BMI 28.4
[2024-04-07] MEDS: Metaxalone 800 MG Tablet PO (13:16)
[2024-04-07 13:17] VITALS: BP 128/78; PULSE 64; RESP 14; TEMP 36.4; O2SAT 99
== END 2024-04-07 13:19 | disposition home or self-care (01) ==
PROVIDERS: Emergency Provider Emergency Medicine; Visit Provider Emergency Medicine
DX: M54.2 Cervicalgia (principal); G20.A1 Parkinson's disease without dyskinesia, without mention of fluctuations; F20.9 Schizophrenia, unspecified; E11.9 Type 2 diabetes mellitus without complications; M62.838 Other muscle spasm; I25.10 Atherosclerotic heart disease of native coronary artery without angina pectoris; Z79.01 Long term (current) use of anticoagulants; Z79.82 Long term (current) use of aspirin; Z79.84 Long term (current) use of oral hypoglycemic drugs; Z86.718 Personal history of other venous thrombosis and embolism; Z86.73 Personal history of transient ischemic attack (TIA), and cerebral infarction without residual deficits
CPT/HCPCS: 72040; 93005; 99284

== ENCOUNTER 2024-05-16 10:31 | Emergency (ER) | payer OTHER, SELFPAY ==
[2024-05-16 10:32] VITALS: BP 161/100; PULSE 108; RESP 19; TEMP 36.4; O2SAT 98
--- NOTE | 2024-05-16 10:58 | CT_ITS ---
EXAM: CT HEAD WITHOUT INTRAVENOUS CONTRAST CLINICAL INDICATION: head trauma TECHNIQUE: Multiple axial images were obtained of the head without intravenous contrast. This CT exam was performed using one or more of the following dose reduction techniques: automated exposure control, adjustment of the mA and/or kV according to patient size, and/or use of iterative reconstruction technique. RADIATION DOSE: CTDIvol = 44.99 mGy, DLP = 1592.22 mGy-cm COMPARISON: CT head without contrast 12/25/2023. FINDINGS: BRAIN AND EXTRA-AXIAL SPACES: No intracranial bleeding. Old cortical-based ischemic infarct with cystic encephalomalacia and atrophy in the right medial orbital gyrus, right lateral orbital gyrus, the caudal aspect of the right central lobe, the right supramarginal gyrus, the right lateral occipitotemporal gyrus and left pars orbitalis. These were present previously. Moderate cerebral atrophy, central and cortical accounting for disproportionate dilatation of the third and lateral ventricles. No communicating or noncommunicating hydrocephalus. No intracranial mass or mass effect. Posterior fossa structures are unremarkable. Basal cisterns are patent. BONES/JOINTS: Unremarkable. No discrete lytic or blastic abnormalities. SINUSES: Unremarkable as visualized. Clear. MASTOID AIR CELLS: Unremarkable. Clear. ORBITS: Visualized globes, extraocular muscles, optic nerves and retrobulbar fat appear unremarkable. CT/Brain/Head without Contrast IMPRESSION: 1. No CT evidence of intracranial bleeding, acute ischemic infarct or acute intracranial abnormality. 2. Multiple old cortical-based ischemic infarcts with cystic encephalomalacia and atrophy in the right middle frontal gyrus, right lower peripheral gyrus, the caudal aspect of the right central lobe, right supramarginal gyrus, right lateral occipitotemporal gyrus and left pars orbitalis. 3. Moderate cerebral atrophy, central and cortical. 4. No interval change when compared to 12/25/2023. Electronically Signed: Perez Morrissey MD at 11:59 EDT ,
--- NOTE | 2024-05-16 11:00 | RAD_ITS ---
EXAM: XR CHEST, 1 VIEW CLINICAL INDICATION: ms change TECHNIQUE: Frontal view of the chest. COMPARISON: 12/25/2023. FINDINGS: LUNGS AND PLEURAL SPACES: Unremarkable. No consolidation or edema. No pneumothorax. No effusion. HEART: Unremarkable. Cardiac silhouette not enlarged. MEDIASTINUM: Central airways and mediastinal contour are unremarkable. BONES/JOINTS: Old right lateral rib fractures. SOFT TISSUES: Unremarkable. RAD/Chest 1 View (Portable) IMPRESSION: 1. No acute cardiopulmonary pathology. 2. No significant change. Electronically Signed: Perez Morrissey MD at 12:03 EDT ,
--- NOTE | 2024-05-16 11:00 | EKG12_ITS ---
Test Reason : Blood Pressure : / mmHG Vent. Rate : 083 BPM Atrial Rate : 083 BPM P-R Int : 152 ms QRS Dur : 084 ms QT Int : 360 ms P-R-T Axes : 036 012 022 degrees QTc Int : 423 ms Normal sinus rhythm Normal ECG Confirmed by RAJESH HACKETT, [place] ([id number]), development editor DARRYL MERCADO ([id number]) on 05/18/2024 9:50:39 AM Referred By: Confirmed By:LUKE MENA MD
--- NOTE | 2024-05-16 11:01 | EDS_ITS ---
HPI HPI - Fall History of Present Illness Chief Complaint: Fall Detail of Chief Complaint: Fall at home with head injury. Informant: patient and spouse/S.O. Occured/Mechanism Occurred: Today Mechanism/Context: Yes same level fall Pain/Injury Pain Location: head Current Severity: Mild Maximum Severity: Mild Associated Symptoms Associated Symptoms: Negative for Parasthesias, Weakness, Loss of function, Inability to ambulate, Loss of consciousness or Amnesia Narrative Narrative: 64-year-old male history of Parkinson's seizures, stroke with hemiparesis. History of diabetes, DVT and CAD. Marcie fell today at home and struck his head. He is not acting normally. Reportedly urinating around the house. currently was not present at bedside believes she is parking her car. I will speak to her and try to get more history. Patient himself is a limited informant. Prior similar symptoms: No Recent Illness/Hospitalization: No PFSH PFSH Medical History History of vertebral compression fracture Seizure disorder Left hemiparesis Parkinsons disease Chronic anticoagulation History of CVA (cerebrovascular accident) Obesity KATHRINE (obstructive sleep apnea) TIA (transient ischemic attack) Slurred speech Traumatic brain injury Schizophrenia Dyslipidemia DM2 (diabetes mellitus, type 2) DVT (deep venous thrombosis) CAD (coronary artery disease) Home Medications ?Medication ?Instructions ?Recorded ?Last Taken ?Type atorvastatin 10 mg tablet 40 mg PO QHS cholesterol 01/06/14 01/05/14 History calcium carbonate (Caltrate 600) 600 mg PO DAILY@0800 supplement 01/06/14 01/05/14 History fondaparinux 10 mg/0.8 mL 7.5 mg SQ DAILY Blood Thinner 01/06/14 Unknown History subcutaneous solution syringe (Arixtra) metformin 1,000 mg tablet 1,000 mg PO BIDCM DM 01/06/14 01/05/14 History omeprazole 20 mg capsule,delayed 20 mg PO DAILY indijestion 01/06/14 01/05/14 History release aspirin 81 mg chewable tablet 81 mg PO DAILY@0800 heart health 01/07/14 Unknown Rx ##90 levetiracetam 500 mg tablet 500 mg PO BID seizures #30 TABLETS 03/15/16 Unknown Rx acetaminophen 500 mg tablet 1,000 mg (2 x 500 mg) PO Q8 PRN 07/23/23 Unknown Rx pain #180 tabs carbidopa 25 mg-levodopa 100 mg 1 tab PO TIDAC #90 tabs 07/23/23 Unknown Rx tablet divalproex 500 mg tablet,extended 500 mg PO QHS #30 tabs 07/23/23 Unknown Rx release 24 hr glyburide 5 mg tablet 5 mg PO BREAKFAST #30 tabs 07/23/23 Unknown Rx ipratropium bromide 42 mcg (0.06 2 spray NASAL BID #1 BOTTLE 07/23/23 Unknown Rx %) nasal spray lacosamide 100 mg tablet (Vimpat) 100 mg PO BID #60 tabs 07/23/23 Unknown Rx lidocaine 5 % topical patch 1 patch topical DAILY #30 ea 07/23/23 Unknown Rx magnesium chloride 64 mg 128 mg (2 x 64 mg) PO DAILY #30 07/23/23 Unknown Rx (magnesium chloride) tabs tablet,delayed release (Mag 64) olanzapine 10 mg tablet 20 mg (2 x 10 mg) PO DAILY@1800 07/23/23 Unknown Rx #60 tabs propranolol 60 mg capsule,24 120 mg (2 x 60 mg) PO DAILY #30 07/23/23 Unknown Rx hr,extended release caps sennosides 8.6 mg-docusate sodium 2 tab PO BID #120 tabs 07/23/23 Unknown Rx 50 mg tablet (Stool Softener-Stimulant Laxative) tramadol 50 mg tablet 50 mg PO Q6H PRN Pain Score 4-10 07/23/23 Unknown Rx #20 tabs metaxalone 800 mg tablet 800 mg PO TID #20 tabs 04/07/24 Unknown Rx Allergy/AdvReac Type Severity Reaction Status Date / Time heparin Allergy Swelling Verified 04/07/24 11:28 ibuprofen Allergy Unknown Verified 04/07/24 11:28 Family History Mother Cancer Diabetes Father Cancer Diabetes Surgical History History of percutaneous coronary intervention H/O brain surgery Social History household members: spouse Smoking Status: Never smoker alcohol intake: never substance use type: does not use ROS ROS ED ROS Narrative Patient denies recent illness. He is a limited informant. Review of Systems ROS Unobtainable: due to mental status EXAM Physical Exam Narrative Exam Narrative: 8-year-old male vital signs stable afebrile. Pulse ox 90% room air no hypoxia. H EENT exam pupils round react to light. He has no upper teeth. He has multiple missing lower teeth but none of been knocked out or acutely injured today. Jaws nontender. Moist weeks membranes. He has an abrasion contusion on his anterior midline of his top of his scalp and forehead. C-spine and neck are nontender. Back and spine are nontender. Lungs are clear to auscultation bilaterally. Chest wall and ribs are nontender. Heart rates about 100. No murmur. Abdomen soft and nontender. Pelvic girdle intact. Moving all 4 extremities. He is weaker on the right side from I suspect his prior stroke. But he can lift his right arm and leg. The upper and lower extremities are nontender without deformity. Neurologically he is a limited informant. He says he asked about any question asked. He is following commands. Const Vital Signs: 05/16/24 10:32 05/16/24 10:44 05/16/24 12:32 Temperature 97.5 F L Temperature Source Temporal Pulse Rate 108 H 77 Respiratory Rate 19 H 16 Respiratory Effort Normal Respiratory Depth Normal Respiratory Pattern Normal Blood Pressure 161/100 H 141/85 H Blood Pressure Mean 120 103 Pulse Ox 98 95 Oxygen Delivery Method Room Air Room Air Room Air Positive well nourished and well developed; Negative for obese, cachectic, contractures or unkempt General Appearance ED: well developed and NAD; Negative for unkempt, cachectic or contractures Nutritional Appearance: Negative for cachectic or obese HEENT Reports normocephalic trauma and contusion; Negative for atraumatic Eyes PERRL and EOMs intact bilaterally General Eye ED: Negative for pale conjunctiva or scleral icterus Neck full ROM, no lymphadenopathy and supple General: Negative for tenderness Chest Wall inspection of chest normal and palpation of chest normal Chest: Negative for other Resp normal respiratory effort, no retractions and clear to auscultation bilaterally Effort and Inspection: Negative for pain with movement Auscultation: Negative for rales, rhonchi, wheezes, diminished lung sounds or other Cardio regular rate, regular rhythm, S1 normal heart sound, S2 normal heart sound and no murmurs Rate: Negative for bradycardia or tachycardic Rhythm: Negative for abnormal rhythm Bruits: Negative for other GI non-tender, non-distended and no masses Inspection: Negative for abdominal distention Auscultation: normoactive bowel sounds Palpation: soft; Negative for guarding Back/Spine no CVA tenderness General Back: Negative for CVA tenderness Cervical Spine: Negative for cervical spine tenderness Neuro No oriented x3, moves all extremities and No no focal motor deficits Neuro Narrative: Right upper and lower extremity weakness. Sensorium / Orientation: alert and oriented to person Motor Exam: strength abnormal Psych mental status grossly normal and thought process normal Appearance: Negative for unkempt Attitude: No agitated Mood & Affect: Negative for depressed, anxious or tearful Skin Skin Narrative: Abrasion right forehead and scalp. Lesions: no lesions Rashes: no rashes Trauma: abrasion MDM MDM MDM Narrative Medical decision making narrative: 64-year-old male extensive past medical history including stroke, diabetes, seizures, Parkinson's and schizophrenia fell today at home injuring his head. He also is not acting normally and is urinating all over the home reportedly. I have yet to be able to speak to his I will get more history from her he needs a CAT scan of his head and screening labs. After multiple attempts I was able to speak to the patient's significant other who is here. I spoke to her in the room. She explained to me her concerns. We are waiting on the labs return. She seems to be very anxious to her friend who have him be discharged. I went back to go over the test results with her at 230 there is she is said she became more upset and left without being discharged and demanded they take out his IV. Prior to them eloping patient had no change in the exam entire time. History & Record Review Discussion w/independent historian: Patient and Family Additional record(s) reviewed:: Prior inpatient record, Prior outpatient record, Prior ED visit, Prior labs and No prior records Lab Data Attestation: I reviewed the patient's lab results. Lab results narrative: CBC white count was normal at 8. H&H 13 and 38. Platelets 241. Electrolytes show a gap of 7. BUN/creatinine 15 and 0.6. Glucose 220. Liver enzymes normal. UA normal. No white or red cells. No bacteria nor nitrates. Labs: Laboratory Results - last 24 hr 05/16/24 05/16/24 10:48 11:13 WBC 8.0 RBC 4.25 L Hgb 13.4 Hct 38.3 L MCV 90.1 MCH 31.5 MCHC 35.0 RDW Std Deviation 45.1 H RDW Coeff of Xavier 13.7 Plt Count 241 MPV 10.8 Immature Gran % (Auto) 0.400 Neut % (Auto) 82.4 H Lymph % (Auto) 9.7 L [place] % (Auto) 7.0 Eos % (Auto) 0.1 Baso % (Auto) 0.4 Absolute Neuts (auto) 6.6 Absolute Lymphs (auto) 0.78 L Nucleated RBC % 0 Sodium 139 Potassium 3.8 Chloride 106 Carbon Dioxide 26.0 Anion Gap 7 BUN 15 Creatinine 0.68 L Est GFR (MDRD) Af Amer 151 Est GFR (MDRD) Non-Af 124 BUN/Creatinine Ratio 21.9 H Glucose 220 H Calcium 8.9 Total Bilirubin 0.60 AST 22 ALT 12 L Alkaline Phosphatase 47 Total Protein 6.5 Albumin 3.4 Globulin 3.1 Albumin/Globulin Ratio 1.1 Urine Color Yellow Urine Clarity Clear Urine pH 5.0 Ur Specific [place] 1.015 Urine Protein 30 H Urine Glucose (UA) 1000 H Urine Ketones 5 H Urine Occult Blood 10 H Urine Nitrite Negative Urine Bilirubin Negative Urine Urobilinogen Normal Ur Leukocyte Esterase Negative Urine RBC 0 SEEN Urine WBC 0 SEEN Ur Squamous Epith Cells 0 SEEN Urine Bacteria 0 SEEN Urine Mucus 0 SEEN Radiography Chest X-Ray - ED: 1 View, Read by ED Physician, Normal, Heart, Lungs, Mediastinum, Bony Structures, No Acute Disease and Chronic Changes Diagnostic Testing: Clinical Impression(s) from Imaging Studies Brain CT 05/16/24 10:58 IMPRESSION: 1. No CT evidence of intracranial bleeding, acute ischemic infarct or acute intracranial abnormality. 2. Multiple old cortical-based ischemic infarcts with cystic encephalomalacia and atrophy in the right middle frontal gyrus, right lower peripheral gyrus, the caudal aspect of the right central lobe, right supramarginal gyrus, right lateral occipitotemporal gyrus and left pars orbitalis. 3. Moderate cerebral atrophy, central and cortical. 4. No interval change when compared to 12/25/2023. Electronically Signed: Perez Morrissey MD at 11:59 EDT , Chest X-Ray 05/16/24 11:00 IMPRESSION: 1. No acute cardiopulmonary pathology. 2. No significant change. Electronically Signed: Perez Morrissey MD at 12:03 EDT , Chest x-ray, portable, single view interpreted both by myself and radiologist shows no acute abnormality. Normal cardiac silhouette. Normal lung wilson. No infiltrates. Rhythm Strip Rhythm Strip: Sinus Rhythm Rate: 83 Ectopy: None EKG Initial EKG: Attestation: I personally reviewed and interpreted this EKG as follows: Interpretation: Sinus Rhythm and No Acute Injury Pattern Comments: Normal sinus rhythm rate 83 no acute signs of [place] nor ischemia or dysrhythmia. Discharge Plan Triage Chief Complaint: Fall ED Provider: Kristopher Vick Dx/Rx/DC Orders Clinical Impression: Fall, Head injury, History of diabetes mellitus, History of seizure Instructions: ED Head Injury (Adult) Prescriptions: No Action atorvastatin 10 MG tablet 40 mg PO QHS Patient Comments: CHOLESTEROL calcium carbonate [Caltrate 600] 600 MG tablet 600 mg PO DAILY@0800 Patient Comments: CALCIUM metformin 1,000 MG tablet 1,000 mg PO BIDCM Patient Comments: BLOOD SUGAR omeprazole 20 MG capsule 20 mg PO DAILY Patient Comments: ACID REFLUX fondaparinux [Arixtra] 10 MG/0.8 ML syringe 7.5 mg SQ DAILY Patient Comments: BLOOD THINNER aspirin 81 MG tablet,chewable 81 mg PO DAILY@0800 Qty: 90 0RF Patient Comments: [facility] levetiracetam 500 MG tablet 500 mg PO BID Qty: 30 0RF glyburide 5 mg Tablet 5 mg PO BREAKFAST Qty: 30 0RF acetaminophen 500 mg Tablet 1,000 mg PO Q8 PRN (Reason: pain) Qty: 180 0RF divalproex 500 mg Tablet Extended Release 24 Hr 500 mg PO QHS Qty: 30 0RF lidocaine 5 % Adhesive Patch,Medicated 1 patch topical DAILY Qty: 30 0RF Protocol: *Topical Application Instructions APPLICATION INSTRUCTIONS: ribs Rx Instructions: Apply to the R shoulder in the AM and remove at bedtime ipratropium bromide 42 mcg (0.06 %) [place],Non-Aerosol 2 spray NASAL BID Qty: 1 0RF Rx Instructions: For runny or stuffy nose carbidopa-levodopa 25-100 mg Tablet 1 tab PO TIDAC Qty: 90 0RF lacosamide [Vimpat] 100 mg Tablet 100 mg PO BID Qty: 60 0RF propranolol 60 mg Capsule,Extended Release 24 Hr 120 mg PO DAILY Qty: 30 0RF Rx Instructions: For TBI sennosides-docusate sodium [Stool Softener-Stimulant Laxat] 8.6-50 mg Tablet 2 tab PO BID Qty: 120 0RF olanzapine 10 mg Tablet 20 mg PO DAILY@1800 Qty: 60 0RF Rx Instructions: 2 tabs at bedtime tramadol 50 mg Tablet 50 mg PO Q6H PRN (Reason: Pain Score 4-10) Qty: 20 0RF Rx Instructions: Try Tylenol first and if the pain is not relieved give Tramadol Mag 64 64 mg Tablet,Delayed Release (Dr/Ec) 128 mg PO DAILY Qty: 30 0RF metaxalone 800 mg tablet 800 mg PO TID Qty: 20 0RF [facility] [Primary Care Provider] - As soon as possible Activity Restrictions/Additional Instructions: [facility] He may need to adjust his seizure medications. Tylenol for any pain. Print Language: Fijian Disposition Disposition: Home, Self Care Discharge Date/Time: 05/16/24 14:32
[2024-05-16 11:17] LABS: Bacteria 0 SEEN /hpf (None Seen); Mucous, Urine 0 SEEN /hpf (<or=2+); Red Blood Cells-Urine 0 SEEN /hpf (0-5); Squamous Epithelial Cells - UA 0 SEEN /hpf (0-5); White Blood Cells 0 SEEN /hpf (0-5)
[2024-05-16 11:20] LABS: Color, Urine Yellow (Yellow); Glucose, Dipstick 1000 mg/dl (Normal); Ketone-Dipstick 5 mg/dl (Negative); Leukocyte Esterase-Dipstick Negative /ul (Negative); Nitrite-Dipstick Negative (Negative); Occult Blood-Urine 10 /ul (Negative); Protein-Dipstick 30 mg/dl (Negative); Specific Gravity, Urine 1.015 (1.002-1.030); Urine Bilirubin Dipstick Negative (Negative); Urine Clarity Clear (Clear); Urine Urobilinogen Normal (Normal)
[2024-05-16 11:20] LABS: Absolute Lymphocyte Count 0.78 X10^3/uL (0.83-4.51); Absolute Neutrophil Count 6.6 X10^3/uL (2.0-7.7); Basophil# 0.03 X10^3/uL; Basophil% 0.4 % (0-1); Eosinophil# 0.01 X10^3/uL; Eosinophils% 0.1 % (0-5); Hematocrit 38.3 % (40-54); Hemoglobin 13.4 g/dL (13.0-16.5); Lymphocyte # 0.78 X10^3/ul (0.83-4.51); Lymphocyte % 9.7 % (19-41); Mean Corpuscular Hgb 31.5 pg (27.0-32.0); Mean Corpuscular Volume 90.1 fL (80-94); Mean Platelet Vol. 10.8 fl (6.2-12.0); Monocyte# 0.56 X10^3/uL; NRBC Flagged by Analyzer 0 % (0-5); Neutrophil # 6.63 X10^3/uL (2.7-7.7); Neutrophil % 82.4 % (47-70); Platelet Count 241 K/mm3 (150-450); RBC Distribution Width CV 13.7 % (11.6-14.6); RBC Distribution Width SD 45.1 fl (35.1-43.9); Red Blood Count 4.25 M/mm3 (4.6-6.2)
[2024-05-16 11:25] LABS: ALB/GLOB Ratio 1.1 RATIO (0.9-2.4); AST(SGOT) 22 U/L (15-37); Alanine Aminotransfer ALT/SGPT 12 U/L (16-61); Albumin, Serum 3.4 g/dL (3.2-5.0); Alkaline Phosphatase 47 U/L (45-117); Anion Gap 7 (5-15); BUN 15 mg/dL (7-18); BUN/Creat Ratio 21.9 RATIO (10-20); Calcium,Total 8.9 mg/dL (8.5-10.1); Chloride 106 mmol/L (98-107); Creatinine, Serum 0.68 mg/dL (0.70-1.30); EST Glomerular Filtration Rate 124 mL/min (>60); Est Glom Filt Rate - Afr Amer 151 mL/min (>60); Globulin 3.1 g/dL (2.2-4.2); Glucose 220 mg/dL (74-106); Potassium 3.8 mmol/L (3.5-5.1); Protein, Total 6.5 g/dL (6.4-8.2); Sodium Level 139 mmol/L (136-145)
--- NOTE | 2024-05-16 12:18 | ED.RN ---
THIS RN AT THE NURSES STATION WHEN SHE HEARD YELLING. PATIENTS S.O. OPENS PATIENTS DOOR ASKING FOR HELP. PATIENT ASKING TO GET OUT OF BED TO GO TO BATHROOM. RN INFORMED PATIENT SHE CAN GIVE HIM A URINAL TO USE THE BATHROOM BUT HE IS TOO UNSTEADY TO GET OUT OF BED. PT BEGAN YELLING AT RN AND S.O SAYING HE NEEDS TO PEE. RN STATES I UNDERSTAND AND WE CAN USE A URINAL. PT YELLS I HAVE TO PEE. GET OUT OF MY WAY. RN STATES THIS BEHAVIOR WILL NOT BE TOLERATED. WE ARE NOT GOING TO YELL AND WE ARE NOT GOING TO GET OUT OF BED. RN ASKS S.O. IF HE IS ALWAYS LIKE THIS. SHE RESPONDS YES. S.O TEARFUL AT BEDSIDE AND GIVEN SOME TISSUES AT THIS TIME. PT AGREES TO LAY BACK IN BED. PT CONTINUES TO YELL HE HAS TO PEE. DR. BURKS INFORMED. CONSULT FOR SOCIAL WORK
[2024-05-16 12:32] VITALS: BP 141/85; PULSE 77; RESP 16; O2SAT 95
--- NOTE | 2024-05-16 14:08 | ED.RN ---
PATIENTS ASKING WHEN SHE CAN TAKE PATIENT AND LEAVE. PASSED DR. BURKS IN THE HALLWAY ASKING WHEN CAN SHE LEAVE. DR. BURKS SAYS HE WILL BE IN THERE SOON. STATES I'M READY TO GO [place].
--- NOTE | 2024-05-16 14:25 | ED.RN ---
PT REQUESTING IV BE TAKEN OUT SO THEY CAN LEAVE. DR. BURKS NOTIFIED. STATES HE WILL BE THERE SOON TO SEE THEM. IV REMOVED. CATHETER INTACT. DRESSING PLACED OVER IV SITE. PT AMBULATORY WITH
== END 2024-05-16 14:32 | disposition home or self-care (01) ==
LOC: ED 10:53
PROVIDERS: Emergency Provider Emergency Medicine; Visit Provider Emergency Medicine
DX: S09.90XA Unspecified injury of head, initial encounter (principal); G20.C Parkinsonism, unspecified; E11.9 Type 2 diabetes mellitus without complications; I25.10 Atherosclerotic heart disease of native coronary artery without angina pectoris; G47.33 Obstructive sleep apnea (adult) (pediatric); W18.30XA Fall on same level, unspecified, initial encounter; Z79.899 Other long term (current) drug therapy; Z86.718 Personal history of other venous thrombosis and embolism
CPT/HCPCS: 70450; 71045; 80053; 81001; 85025; 93005; 99284; P9612

== ENCOUNTER 2024-12-04 06:35 | Day surgery (SDC) | payer OTHER, SELFPAY ==
--- NOTE | 2024-12-01 11:32 | PAT.ANE_ITS ---
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 When Was Last Pacemaker Check QUESTION #4 FULL TEXT: You/Your Family Experience fever (hyperthermia) with Anesthesia Last Oral Intake Last Oral intake: Last Oral Intake NPO since Meds taken in AM with sips of water? Meds patient instructed to take am of surgery PONV PONV - environmental field services technician: PONV - environmental field services technician Female No 12/01/24 11:14 HX of Motion Sickness No 12/01/24 11:14 HX of N/V After Surgery No 12/01/24 11:14 Non-Smoker Yes 12/01/24 11:14 Duration of Surgery greater No 12/01/24 11:14 than 60 minutes Number of Risk Factors 1 12/01/24 11:14 PONV Score Low Risk 12/01/24 11:14 Height & Weight Height & Weight: Anesthesia: Height & Weight Height 5 ft 3 in 10/12/24 13:36 Respiratory Assessment Respiratory Assessment - environmental field services technician: Respiratory Tract Infection Hx - environmental field services technician Hx Respiratory Tract Infection No 12/01/24 11:14 STOP Sleep Apnea STOP Sleep Apnea - environmental field services technician: STOP Sleep Apnea - environmental field services technician Hx Hypertension No 12/01/24 11:14 Hx Sleep Apnea No 12/01/24 11:14 CPAP No 12/01/24 11:14 BIPAP No 12/01/24 11:14 Do you snore loudly (louder No 12/01/24 11:14 than talking or can be heard Do you often feel tired/ No 12/01/24 11:14 fatigued/ sleepy during daytime? Has anyone observed you stop No 12/01/24 11:14 breathing during sleep? STOP Results Negative 12/01/24 11:14 QUESTION #5 FULL TEXT : Do you snore loudly (louder than talking or can be heard through closed doors)? Tobacco Use History Tobacco Use History - environmental field services technician: Tobacco Use History - environmental field services technician Tobacco Use Non-smoker 04/20/22 22:00 Smoking Status Never smoker 12/01/24 11:14 Hx Tobacco Use No 12/01/24 11:14 Years Smoking Packs Smoked per Day Smoking Cessation Date was within the last 15 years Hx Smoking Cessation Date Hx Smoking Cessation No 12/01/24 11:14 Counseling Hematologic Medial History Hematologic Hx - environmental field services technician: Hematologic Medical Hx - documentation clerk Hx of Blood Transfusion Yes 12/01/24 11:14 Hx of Transfusion in last 3 No 12/01/24 11:14 Months Date of Last Transfusion (if within last 3 months) Ever experience any problems No 12/01/24 11:14 with transfusion(s)? Specify any problems Hx of Preganancy in last 3 N/A 12/01/24 11:14 Months Nurse Filling Out Transfusion VCHRISTIN 12/01/24 11:14 & Questions: Date: 12/01/24 12/01/24 11:14 Time: 11:16 12/01/24 11:14 Patient unable to answer at this time (ie. confused, unrespo /Reproduction History /Reproductive History - environmental field services technician: /Reproductive Hx- environmental field services technician Hx Now No 12/01/24 11:14 Gestational Age (in weeks): EDC: Hx Hx Para Hx Section SAB No 12/01/24 11:14 [facility], [facility] Medical History (Updated 12/01/24 @ 11:17 by Delia Quan) History of echocardiogram Wears glasses [place] filter in place Injury of head and neck Seizures Non-smoker Epilepsy Parkinson's disease Dementia Hx of multiple trauma History of vertebral compression fracture Seizure disorder Left hemiparesis Parkinsons disease Chronic anticoagulation History of CVA (cerebrovascular accident) Obesity KATHRINE (obstructive sleep apnea) TIA (transient ischemic attack) Slurred speech Traumatic brain injury Schizophrenia Dyslipidemia DM2 (diabetes mellitus, type 2) DVT (deep venous thrombosis) CAD (coronary artery disease) Home Medications ?Medication ?Instructions ?Recorded ?Last Taken ?Type atorvastatin 10 mg tablet 40 mg PO QHS cholesterol 01/06/14 01/05/14 History calcium carbonate (Caltrate 600) 600 mg PO DAILY@0800 supplement 01/06/14 01/05/14 History metformin 1,000 mg tablet 1,000 mg PO BIDCM DM 01/06/14 01/05/14 History acetaminophen 500 mg tablet 1,000 mg (2 x 500 mg) PO Q8 PRN 07/23/23 Unknown Rx pain #180 tabs glyburide 2.5 mg tablet 7.5 mg PO BID 10/12/24 Unknown History lacosamide 200 mg tablet 200 mg PO BID 10/12/24 Unknown History rivaroxaban 20 mg tablet (Xarelto) 20 mg PO QDAY 10/12/24 Unknown History carbidopa 25 mg-levodopa 100 mg 1 tab PO Q6H 12/01/24 Unknown History tablet divalproex 500 mg tablet,extended 1,000 mg PO QHS 12/01/24 Unknown History release 24 hr tamsulosin 0.4 mg capsule 0.4 mg PO QHS 12/01/24 Unknown History Allergy/AdvReac Type Severity Reaction Status Date / Time heparin Allergy Swelling Verified 12/01/24 10:56 ibuprofen Allergy Unknown Verified 12/01/24 10:56 Family History Mother Cancer Diabetes Father Cancer Diabetes Surgical History (Updated 12/01/24 @ 11:14 by Delia Quan) Hx of ankle fusion History of percutaneous coronary intervention H/O brain surgery Social History household members: spouse Smoking Status: Never smoker alcohol intake: never substance use type: does not use Audit: Pertinent Findings Pertinent Findings EKG Perinent findings: May 18, 2024. Normal sinus rhythm. Echo (EF%) pertinent findings: April 21, 2022. Ejection fraction 65%. No aortic stenosis noted. Unable to assess PA pressures Pulmonary function results/spirometer pertinent findings: May 16, 2024. Chest x-ray. No acute cardiopulmonary pathology noted. Recommendation Anesthesia Recommendation Anesthesia recommendation: OPTIMIZED for anesthesia
[2024-12-04] VITALS (8 sets, daily range): BP systolic 84–151; BP diastolic 52–97; PULSE 62–71; RESP 16–18; TEMP 36.1–36.3; O2SAT 98–100; BMI 30.9
--- NOTE | 2024-12-04 06:40 | PRE.ANES_ITS ---
ASA Classification* ASA Classification ASA Classification: 2 Assessment & Plan Anesthesia* Anesthesia Assessment Anesthesia Assessment: Discussed sedation and/or anesthesia options, risks, benefits, and alternatives with patient/parents/legal guardian/POA. Questions invited. The patient/parents/legal guardian/POA seems to understand and agrees to proceed with anesthesia plan. Reviewed the physical assessment, medical history, allergy history and patient home medications list prior to surgery/procedure/anesthetic and documented any changes. Performed airway and anesthesia risk assessments. Anesthesia Type Anesthesia Type: MAC Anesthesia Focused Assessment* Airway Assessment Mouth opens: >3 cm Mallampati Score: II Focused Labs Anesthesia Preop lab: CBC WBC 8.0 K/mm3 (4.4-11.0) 05/16/24 10:48 RBC 4.25 M/mm3 (4.6-6.2) L 05/16/24 10:48 Hgb 13.4 g/dL (13.0-16.5) 05/16/24 10:48 Hct 38.3 % (40-54) L 05/16/24 10:48 Plt Count 241 K/mm3 (150-450) 05/16/24 10:48 CHEMISTRY Potassium 3.8 mmol/L (3.5-5.1) 05/16/24 10:48 Sodium 139 mmol/L (136-145) 05/16/24 10:48 Magnesium 2.1 mg/dL (1.6-2.6) 11/14/23 12:40 Phosphorus 3.5 mg/dL (2.5-4.9) 07/11/23 05:04 BUN 15 mg/dL (7-18) 05/16/24 10:48 Creatinine 0.68 mg/dL (0.70-1.30) L 05/16/24 10:48 Glucose 220 mg/dL (74-106) H 05/16/24 10:48 POC Glucose 161 mg/dL (74-106) H 12/24/23 23:48 TSH 0.86 uIU/mL (0.358-3.74) 04/21/22 04:50 COAG PT 12.9 SECONDS (11.7-14.9) 12/25/23 00:03 Pre-Assessment Diagnosis/Proposed Procedure Planned Operative Procedure(s): COLONOSCOPY Anesthesia History Anesthesia History - practice director: Anesthesia History - practice director Hx Hospitalization Yes: 04/202412/01/24 11:14 Any Problems With Anesthesia No 12/01/24 11:14 Cholinesterase deficiency No 12/01/24 11:14 You/Your Family Experience No 12/01/24 11:14 fever (hyperthermia) with Relationship Recent Exposure to Contagious No 01/06/14 14:00 Disease Does patient have nerve No 12/01/24 11:14 stimulator Patient instructed to have device shut off --Does patient have Pacemaker or ICD? When Was Last Pacemaker Check QUESTION #4 FULL TEXT: You/Your Family Experience fever (hyperthermia) with Anesthesia Last Oral Intake Last Oral intake: Last Oral Intake NPO since Meds taken in AM with sips of water? Meds patient instructed to take am of surgery PONV PONV - practice director: PONV - practice director Female No 12/01/24 11:14 HX of Motion Sickness No 12/01/24 11:14 HX of N/V After Surgery No 12/01/24 11:14 Non-Smoker Yes 12/01/24 11:14 Duration of Surgery greater No 12/01/24 11:14 than 60 minutes Number of Risk Factors 1 12/01/24 11:14 PONV Score Low Risk 12/01/24 11:14 Height & Weight Height & Weight: Anesthesia: Height & Weight Height 5 ft 3 in 10/12/24 13:36 Respiratory Assessment Respiratory Assessment - practice director: Respiratory Tract Infection Hx - practice director Hx Respiratory Tract Infection No 12/01/24 11:14 STOP Sleep Apnea STOP Sleep Apnea - practice director: STOP Sleep Apnea - practice director Hx Hypertension No 12/01/24 11:14 Hx Sleep Apnea No 12/01/24 11:14 CPAP No 12/01/24 11:14 BIPAP No 12/01/24 11:14 Do you snore loudly (louder No 12/01/24 11:14 than talking or can be heard Do you often feel tired/ No 12/01/24 11:14 fatigued/ sleepy during daytime? Has anyone observed you stop No 12/01/24 11:14 breathing during sleep? STOP Results Negative 12/01/24 11:14 QUESTION #5 FULL TEXT : Do you snore loudly (louder than talking or can be heard through closed doors)? 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 Specify any problems Hx of Preganancy in last 3 N/A 12/01/24 11:14 Months Nurse Filling Out Transfusion VCHRISTIN 12/01/24 11:14 & Questions: Date: 12/01/24 12/01/24 11:14 Time: 11:16 12/01/24 11:14 Patient unable to answer at this time (ie. confused, unrespo /Reproduction History /Reproductive History - practice director: /Reproductive Hx- practice director Hx Now No 12/01/24 11:14 Gestational Age (in weeks): EDC: Hx Hx Para Hx Section SAB No 12/01/24 11:14 [facility] Medical History History of echocardiogram Wears glasses [place] filter in place Injury of head and neck Seizures Non-smoker Epilepsy Parkinson's disease Dementia Hx of multiple trauma History of vertebral compression fracture Seizure disorder Left hemiparesis Parkinsons disease Chronic anticoagulation History of CVA (cerebrovascular accident) Obesity KATHRINE (obstructive sleep apnea) TIA (transient ischemic attack) Slurred speech Traumatic brain injury Schizophrenia Dyslipidemia DM2 (diabetes mellitus, type 2) DVT (deep venous thrombosis) CAD (coronary artery disease) Home Medications ?Medication ?Instructions ?Recorded ?Last Taken ?Type atorvastatin 10 mg tablet 40 mg PO QHS cholesterol 01/06/14 01/05/14 History calcium carbonate (Caltrate 600) 600 mg PO DAILY@0800 supplement 01/06/14 01/05/14 History metformin 1,000 mg tablet 1,000 mg PO BIDCM DM 01/06/14 01/05/14 History acetaminophen 500 mg tablet 1,000 mg (2 x 500 mg) PO Q8 PRN 07/23/23 Unknown Rx pain #180 tabs glyburide 2.5 mg tablet 7.5 mg PO BID 10/12/24 Unknown History lacosamide 200 mg tablet 200 mg PO BID 10/12/24 Unknown History rivaroxaban 20 mg tablet (Xarelto) 20 mg PO QDAY 10/12/24 Unknown History carbidopa 25 mg-levodopa 100 mg 1 tab PO Q6H 12/01/24 Unknown History tablet divalproex 500 mg tablet,extended 1,000 mg PO QHS 12/01/24 Unknown History release 24 hr tamsulosin 0.4 mg capsule 0.4 mg PO QHS 12/01/24 Unknown History Allergy/AdvReac Type Severity Reaction Status Date / Time heparin Allergy Swelling Verified 12/01/24 10:56 ibuprofen Allergy Unknown Verified 12/01/24 10:56 Family History Mother Cancer Diabetes Father Cancer Diabetes Surgical History Hx of ankle fusion History of percutaneous coronary intervention H/O brain surgery Social History household members: spouse Smoking Status: Never smoker alcohol intake: never substance use type: does not use Review of Systems (Anesthesia) ROS Narrative System reviewed and no additional complaints, except as documented.
[2024-12-04 07:28] LABS: Bedside Glucose 104 mg/dL (74-106)
--- NOTE | 2024-12-04 07:33 | PCM.HP.BLA ---
History and Physical Date of Admission: 12/04/24 Intake Vital Signs 05/16/2410:32 10/12/2413:36 Height 5 ft 3 in 5 ft 3 in Weight: 170 lb BMI 30.1 BP 108/65 Blood Pressure Location Rt brachial Position Sitting Respiration 17 Pulse 92 Pulse Source Monitor Temp 97.3 F L Temp Source Temporal Pulse Oximetry (%) 98 Oxygen Delivery Method room air Intake Visit Reasons: COLONOSCOPY Chief Complaint: s/p fall, SDH Allergies heparin Allergy (Verified 10/12/24 13:39) Swellingibuprofen Allergy (Verified 10/12/24 13:39) Unknown [facility] Medical History History of vertebral compression fracture Seizure disorder Left hemiparesis Parkinsons disease Chronic anticoagulation History of CVA (cerebrovascular accident) Obesity KATHRINE (obstructive sleep apnea) TIA (transient ischemic attack) Slurred speech Traumatic brain injury Schizophrenia Dyslipidemia DM2 (diabetes mellitus, type 2) DVT (deep venous thrombosis) CAD (coronary artery disease) Surgical History History of percutaneous coronary intervention H/O brain surgery Family History Mother Cancer DiabetesFather Cancer Diabetes Social History household members: spouse Smoking Status: Never smoker alcohol intake: never substance use type: does not use HPI HPI HPI: Patient is a 64-year-old male here for repeat colonoscopy. His last colonoscopy was 6 to 7 years ago and he did have polyps removed and they recommended a 5-year follow-up. He denies abdominal pain or blood in the stool. He denies any nausea or vomiting or fevers or chills. ROS General General: Yes weight change and fatigue; No appetite, colon cancer, breast cancer or weakness HEENT HEENT: No difficulty swallowing, eye injury, eye surgery, swollen glands or hoarseness Endo Endocrine: Yes diabetes mellitus; No thyroid disease, thyroid cancer, Hair loss, heat intolerance or cold intolerance Skin Skin: No rash or changing moles Musc Musculoskeletal: No back problems, arthritis, rheumatoid arthritis, gout or joint pain Cardio Cardiovascular: Yes heart attack; No murmur, pacemaker, heart disease, atrial fibrillation, high blood pressure, heart stent, palpitations, shortness of breat with exertion or chest pain Psych Psychiatric: No depression, anxiety or hearing voices Resp Respiratory: No shortness of breath, No sleep apnea, Yes cough, No COPD, No asthma, No emphysema and No wheezing Gastro Gastrointestinal: No abdominal pain, No nausea or vomiting, No diarrhea, Yes constipation, No blood in stool, No acid reflux, No hemorrhoids, No ulcers, No gallbladder problem and No black,tarry stools Onur Hematologic: Yes blood thinners, No blood disorders, No bleeding, No anemia and Yes blood clots Neuro Neurologic: No system reviewed and no additional complaints, except as documented, No as per HPI, No abnormal gait, No abnormal hearing, No abnormal movements, No abnormal speech, No behavioral changes, No burning sensations, No confusion, No convulsions, No disequilibrium, No dizziness, No localized weakness, No frequent falls, No headache(s), No lack of coordination, No loss of vision, No memory loss, No numbness, No other visual disturbances, No radicular pain, No restless legs, No sensory deficit, No syncope, No tingling, No tremor(s), No weakness and No other Exam Const General: cooperative Orientation: alert and oriented x3 HENMT Head: normal to inspection Neck Neck: normal visual inspection and full ROM Chest Chest palpation & inspection: normal inspection of the chest Resp Effort & Inspection: normal respiratory effort Auscultation: clear to auscultation bilaterally Cardio Rate: regular rate Rhythm: regular rhythm GI Inspection: non-distended Palpation: soft and nontender Skin General: no rashes or lesions noted Neuro General: patient alert and patient oriented x3 Extrem General: full ROM Psych Appearance: grossly normal Mental Status: mental status grossly normal Assessment and Plan Assessment and Plan (1) Encounter for colonoscopy due to history of colonic polyp: Status: Acute Plan: I explained endoscopy in detail to the patient. I explained the risks including but not limited to stroke or heart attack with anesthesia, perforation of the GI tract, bleeding, infection. I explained that any of these could necessitate further emergency surgery. The patient understands and all questions were answered sufficiently. The patient wishes to proceed with procedure. Patient will hold his Xarelto for 2 days prior to the procedure Uzair Ferrara MD Pager: [facility] [address] [place] [address], [address] [place] [address] Office: I have examined the patient and the H&P has been reviewed. There are no clinical changes since date of exam.
--- NOTE | 2024-12-04 07:59 | PCM.POST.ANE ---
Anesthesia: Postop Eval I Current Vital Signs Temperature: 97 F Pulse Rate: 66 Blood Pressure: 91/52 Respiratory Rate: 16 Pulse Ox: 99 Oxygen Delivery Method: Room Air Assessment Airway patent: Yes Spontaneous unlabored respirations: Yes Mental status: Asleep nausea: No Vomiting: No Anesthesia Complication: No Fluid Hydration Crystalloid volume administer (ml): 30 Total IV fluid infused: 30 Progress Note Anesthesia document: Postop Eval 1 completed: Yes
--- NOTE | 2024-12-04 08:00 | OP.COLON_ITS ---
Patient Name: Alex Ferrera Procedure Date: 12/04/2024 7:25 AM Date of : 1960 Age: 64 Procedure: Colonoscopy Indications: High risk colon cancer surveillance: Personal history of colonic polyps Providers: Uzair Ferrara MD Medicines: Propofol per Anesthesia Patient Profile: This is a 64 year old male. Refer to note in patient chart for documentation of history and physical. Last Colonoscopy: 5 years ago. Complications: No immediate complications. Procedure: Pre-Anesthesia Assessment: - Prior to the procedure, a History and Physical was performed, and patient medications and allergies were reviewed. The patient's tolerance of previous anesthesia was also reviewed. The risks and benefits of the procedure and the sedation options and risks were discussed with the patient. All questions were answered, and informed consent was obtained. Prior Anticoagulants: The patient has taken Xarelto (rivaroxaban), last dose was 2 days prior to procedure. After reviewing the risks and benefits, the patient was deemed in satisfactory condition to undergo the procedure. After I obtained informed consent, the scope was passed under direct vision. Throughout the procedure, the patient's blood pressure, pulse, and oxygen saturations were monitored continuously. The pediatric colonoscope was introduced through the anus and advanced to the cecum, identified by appendiceal orifice and ileocecal valve. The colonoscopy was performed without difficulty. The patient tolerated the procedure well. The quality of the bowel preparation was good. The ileocecal valve, appendiceal orifice, and rectum were photographed. Scope In: 7:41:38 AM Scope Withdrawal Time 0 hours 4 minutes 26 seconds Scope Out: 7:51:27 AM Total Procedure Duration Time 0 hours 9 minutes 49 seconds Findings: The entire examined colon appeared normal on direct and retroflexion views. Impression: - The entire examined colon is normal on direct and retroflexion views. - No specimens collected. Recommendation: - Discharge patient to home. - Resume previous diet. - Continue present medications. - Repeat colonoscopy in 10 years for screening purposes. Procedure Code(s): --- Professional --- 00889, Colonoscopy, flexible; diagnostic, including collection of specimen(s) by brushing or washing, when performed (separate procedure) Diagnosis Code(s): --- Professional --- Z86.010, Personal history of colonic polyps CPT copyright 2021 [employer]. All rights reserved. The codes documented in this report are preliminary and upon home assessment nurse review may be revised to meet current compliance requirements. Uzair Ferrara MD 12/04/2024 7:59:34 AM This report has been signed electronically. Number of Addenda: 0 Note Initiated On: 12/04/2024 7:25 AM
--- NOTE | 2024-12-04 08:00 | OP.CCLET_ITS ---
12/04/2024 [facility] Re : Colonoscopy procedure for [facility] This procedure was performed on Wednesday, December 04, 2024. My impressions and recommendations are as follows: Impressions : - The entire examined colon is normal on direct and retroflexion views. - No specimens collected. Recommendations : - Discharge patient to home. - Resume previous diet. - Continue present medications. - Repeat colonoscopy in 10 years for screening purposes. My findings are described in the full procedure note, which is enclosed. If I can be of further assistance, please feel free to contact me at Doctor phone number(s): , Work: . Sincerely, Uzair Ferrara MD 12/04/2024 7:59:34 AM This report has been signed electronically.
== END 2024-12-04 08:31 | disposition home or self-care (01) ==
LOC: EN 06:37 → AC 06:38
PROVIDERS: Visit Provider Surgery
PROC: 0DJD8ZZ Inspection of Lower Intestinal Tract, Via Natural or Artificial Opening Endoscopic (ICD-10-PCS; CPT 45378; principal; 2024-12-04 07:25)
DX: Z12.11 Encounter for screening for malignant neoplasm of colon (principal); E11.9 Type 2 diabetes mellitus without complications; I25.10 Atherosclerotic heart disease of native coronary artery without angina pectoris; E78.5 Hyperlipidemia, unspecified; G47.33 Obstructive sleep apnea (adult) (pediatric); Z79.899 Other long term (current) drug therapy; Z79.84 Long term (current) use of oral hypoglycemic drugs; Z79.01 Long term (current) use of anticoagulants; Z86.0100 Personal history of colon polyps, unspecified; Z86.73 Personal history of transient ischemic attack (TIA), and cerebral infarction without residual deficits; Z86.718 Personal history of other venous thrombosis and embolism
CPT/HCPCS: 82962; A4216; J2405